=== PATIENT | female | born 1980 | race Caucasian/White ===

== ENCOUNTER 2018-02-21 08:35 | Emergency (ER) | payer OTHER, SELFPAY ==
[2018-02-21 08:36] VITALS: BP 114/62; PULSE 73; RESP 17; TEMP 36.7; O2SAT 100; BMI 23.7
--- NOTE | 2018-02-21 09:14 | ED.VISSUMM ---
- ER Visit Summary Date of Service: 02/21/18 Chief Complaint: Acute on chronic low back pain History of Present Illness: The patient is a 37 F history of intermittent back pain since 2011. States she has never had an MRI. She has never had back surgery. Today she was working out in her basement doing about a 10-15 pound lift and when she went to raise up she had immediate pain in her lower back. She also has a cool sensation running down the right side of her leg. She denies any bowel or bladder incontinence. No fever. states that they used ibuprofen 600 mg and ice and that is improved her symptoms. It was worse when they were driving down or with any movement. Physical Examination: Well-appearing middle-age female. Vital signs are stable afebrile. Pulse ox 100% on room air no signs of hypoxia. HEENT exam unremarkable. Neck nontender. No lymphadenopathy. Normal range of motion. Lungs clear to auscultation bilaterally. Heart regular rate and rhythm no murmur. Abdomen soft nontender Kevon no giving or masses. Normal bowel sounds no peritoneal signs. Both lower and upper extremities neurovascular intact. No cauda equina. No saddle anesthesia. Normal medial thigh sensation. Dorsi plantar flexion intact in the lower extremities. 5 the 5 motor strength. She is able to raise either leg about 15? she is increasing back pain but no radiculopathy. She has normal motor strength and sensation of both lower extremities. Back exam cervical and thoracic spine nontender her lower lumbar. Lumbar and iliac crests are all tender to palpation. There is no ecchymosis or bruising. No signs of trauma. No redness or warmth. No bony deformities. It is diffuse tenderness. Neurologic exam is normal again no motor strength loss or loss of sensation in either lower extremity. Test Results: None Emergency Department Course and Treatment: Patient's had good results in the past with tramadol. She will be written a prescription for 10. Also Motrin for pain. Treatment Plan: An appointment with her primary care physician. Outpatient MRI. Disposition: Discharge Impression: Acute on chronic low back pain. Acute lumbar strain Rule out degenerative disc disease with follow-up evaluation This note was generated with coresystems dictation software. It may contain incorrect words, spelling, and punctuation that were not noted in review of the chart prior to signing ED Disposition - Plan for ED Patient: Chief Complaint: Back Referrals: Bree Ramírez, ENTRY LEVEL ACCOUNT MANAGER-C [Primary Care Provider] -
--- NOTE | 2018-02-21 09:17 | ED.DEP ---
ED Disposition - Plan for ED Patient: Disposition: Home or Assisted Living Chief Complaint: Back Instructions: ED Sprain Strain Lumbar Prescriptions: Tramadol HCl [Ultram] 50 mg PO Q4H PRN PRN #10 tab PRN Reason: Pain Referrals: Bree Ramírez, JUDE-C [Primary Care Provider] - As soon as possible Additional Instructions: Hot shower and warm bath to relax the muscles in her back. There is both a lumbar strain (muscle strain) and chronic back pain issue here. Ice to decrease inflammation. Ibuprofen 600 mg 3 times a day with food to decrease pain and inflammation. Ultram for pain. Call follow-up your primary care physician. Schedule outpatient MRI. Follow-up with a resource specialist teacher.
--- NOTE | 2018-02-21 09:21 | DCINST.ED_ITS ---
ED Disposition - Plan for ED Patient: Disposition: Home or Assisted Living Chief Complaint: Back Instructions: ED Sprain Strain Lumbar Prescriptions: Tramadol HCl [Ultram] 50 mg PO Q4H PRN PRN #10 tab PRN Reason: Pain Referrals: Bree Ramírez, JUDE-C [Primary Care Provider] - As soon as possible Additional Instructions: Hot shower and warm bath to relax the muscles in her back. There is both a lumbar strain (muscle strain) and chronic back pain issue here. Ice to decrease inflammation. Ibuprofen 600 mg 3 times a day with food to decrease pain and inflammation. Ultram for pain. Call follow-up your primary care physician. Schedule outpatient MRI. Follow- up with a practice specialist.
[2018-02-21] MEDS: traMADol 50 MG Tablet 100 MG PO (09:29)
== END 2018-02-21 09:31 | disposition home or self-care (01) ==
PROVIDERS: Emergency Provider Emergency Medicine; Family Provider Nurse Practitioner Primary Care; PCP Nurse Practitioner Primary Care
DX: S39.012A Strain of muscle, fascia and tendon of lower back, initial encounter (principal); X50.0XXA Overexertion from strenuous movement or load, initial encounter; Y93.89 Activity, other specified; Y92.008 Other place in unspecified non-institutional (private) residence as the place of occurrence of the external cause; Y99.8 Other external cause status; G89.29 Other chronic pain
CPT/HCPCS: 99282

== ENCOUNTER → 2018-03-07 07:51 | Outpatient (CLI) | payer OTHER, SELFPAY ==
--- NOTE | 2018-03-07 07:56 | US_ITS ---
STUDY: RENAL ULTRASOUND - COMPLETE REASON FOR EXAM: Female, 37 years old. Elevated BUN/creatinine TECHNIQUE: Ultrasound evaluation of the kidneys was performed with real-time and static carver-scale imaging. COMPARISON: None. FINDINGS: RIGHT KIDNEY: Normal location of the right kidney, which is normal in size. The right kidney measures 10.7 x 5.3 x 4.7 cm. There is a normal cortex of the right kidney. The renal cortex measures 1.4 cm. There is a upper pole cyst measuring 1.3 x 1.4 x 0.8 cm. There are no right renal calculi. There is mild right hydronephrosis and caliectasis of on certain etiology. There is no demonstrated obstructing stone or lesion on this study. DISTAL RIGHT URETER: There is non-visualization of the distal right ureter. There is no demonstrated right ureterovesical junction calculus. There is a visualized right ureteral jet. LEFT KIDNEY: Normal location of the left kidney, which is normal in size. The left kidney measures 11.7 x 5.4 x 5.8 cm. There is a normal cortex of the left kidney. The renal cortex measures 1.3 cm. There is no left renal mass or cyst. There are no left renal calculi. There is no left hydronephrosis. DISTAL LEFT URETER: There is non-visualization of the distal left ureter. There is no demonstrated left ureterovesical junction calculus. There is a visualized left ureteral jet. AORTA: There is no elongation or tortuosity of the abdominal aorta. I.V.C.: The IVC is patent. BLADDER: The bladder sonographically normal US/Kidney and Bladder IMPRESSION: Mild right hydronephrosis with caliectasis. Cause of the hydronephrosis and caliectasis not apparent on this study. Sonographically normal left kidney and bladder Electronically Signed: Rashad Portillo MD at 8:42 EDT , Service support ,
== END ==
PROVIDERS: Family Provider Nurse Practitioner Primary Care; PCP Nurse Practitioner Primary Care; Visit Provider Family Medicine
DX: Q63.9 Congenital malformation of kidney, unspecified (principal)
CPT/HCPCS: 76770

== ENCOUNTER → 2018-03-23 15:25 | Outpatient (CLI) | payer OTHER, SELFPAY ==
[2018-03-23 17:38] LABS: Anion Gap 6 (5-15); BUN 11 mg/dL (7-18); BUN/Creat Ratio 14.6 RATIO (10-20); Calcium,Total 8.8 mg/dL (8.5-10.1); Chloride 106 mmol/L (98-107); Creatinine, Serum 0.76 mg/dL (0.55-1.02); EST Glomerular Filtration Rate 90 mL/min (>60); Est Glom Filt Rate - Afr Amer 109 mL/min (>60); Glucose 79 mg/dL (74-106); Potassium 3.9 mmol/L (3.5-5.1); Sodium Level 139 mmol/L (136-145)
== END ==
PROVIDERS: Family Provider Nurse Practitioner Primary Care; PCP Nurse Practitioner Primary Care; Visit Provider Family Medicine
DX: N13.30 Unspecified hydronephrosis (principal)
CPT/HCPCS: 36415; 80048

== ENCOUNTER → 2018-04-13 06:47 | Outpatient (CLI) | payer OTHER, SELFPAY ==
--- NOTE | 2018-04-13 06:47 | DT_ITS ---
This patient was seen during an EMR downtime April 11, 2018 - April 18, 2018. This patient may have a combination of paper and electronic documentation or all paper documentation. All documentation is viewable within the e-chart portion of [facility] for each patient visit.
--- NOTE | 2018-04-13 06:47 | CT_ITS ---
STUDY: CT ABDOMEN AND PELVIS WITH CONTRAST REASON FOR EXAM: Female, 37 years old. Pain right hydronephrosis. RADIATION DOSAGE (If Supplied By Facility): CTDIvol = ( 12.07 ) mGy, DLP = ( 1021.69 ) mGycm TECHNIQUE: Transaxial images were obtained from the dome of the diaphragm to the symphysis pubis without oral contrast. 100ml ml of Isovue 300 contrast was administered. Sagittal and coronal images were reconstructed. Individualized dose optimization techniques were used for this CT. COMPARISON: None. FINDINGS: The visualized lung bases are unremarkable. The visualized portions of the heart are within normal limits. Normal liver. Normal gallbladder and extrahepatic biliary system. Normal spleen. Normal pancreas. Normal bilateral adrenal glands. There is mild prominence of the right pelvicalyceal system. The right ureter is not dilated. Normal left kidney. The stomach is not well-distended. The small bowel loops are normal in caliber. The distal small bowel loops are fluid-filled. There is fecal retention. The appendix is visualized and appears normal. Normal abdominal aorta. Normal inferior vena cava. Normal retroperitoneum. The urinary bladder is not well-distended. The uterus is somewhat retroverted. There is a very small umbilical hernia containing fat. Normal osseous structures. CT/Abdomen/Pelvis WITH Contrast IMPRESSION: Mild prominence of the right pelvicalyceal system without ureteral dilatation. No demonstrated ureteral stone. Nonspecific fluid-filled small bowel loops without evidence of small bowel obstruction. Fecal retention. Electronically Signed: Magnus Kern MD at 13:34 EDT Tel , Service support ,
== END ==
PROVIDERS: Family Provider Family Medicine; PCP Family Medicine; Visit Provider Urology
DX: N13.30 Unspecified hydronephrosis (principal)
CPT/HCPCS: 74177; Q9967

== ENCOUNTER → 2019-01-26 07:59 | Outpatient (CLI) | payer OTHER, SELFPAY ==
--- NOTE | 2019-01-26 08:03 | BI_ITS ---
MAMMOGRAPHY - BILATERAL SCREENING 3-D BRAEDEN SYNTHESIS REASON FOR EXAM: Female, 38 years old. Bilateral Screening 3-D tomosynthesis PERTINENT HISTORY: Family history of breast cancer in maternal grandmother.. TECHNIQUE: 2-D mammograms and 3-D Braeden synthesis of the breast (s) were performed. CAD was performed. COMPARISON: None. Baseline examination. FINDINGS: The breast composition is almost entirely fat. Scattered benign calcifications are seen. No dense spiculated masses or suspicious microcalcifications are identified. No architectural distortion is identified. There is no skin thickening or retraction. There has been no significant change since the prior study. BI/SCREENING MAMM (CAD), BILAT IMPRESSION: No mammographic signs of malignancy. Routine yearly mammograms recommended. ASSESSMENT CATEGORY: BIRADS Category 1: Negative. A letter regarding these results will be sent to the patient by the facility within 30 days. FOLLOW UP RECOMMENDATION: Yearly follow up mammogram recommended. (A) Approximately 10% of breast cancers are not detected by mammography. A normal mammogram should not delay biopsy of a clinically suspicious abnormality. Electronically Signed: Braden Sheth MD at 16:38 EDT , Service support ,
== END ==
PROVIDERS: Family Provider Family Medicine; PCP Family Medicine; Visit Provider Nurse Practitioner Primary Care
DX: Z12.31 Encounter for screening mammogram for malignant neoplasm of breast (principal); Z80.3 Family history of malignant neoplasm of breast
CPT/HCPCS: 77063; 77067

== ENCOUNTER → 2019-01-31 08:46 | Outpatient (CLI) | payer OTHER, SELFPAY ==
[2019-01-31 08:41] VITALS: BMI 23.5
--- NOTE | 2019-01-31 08:49 | RAD_ITS ---
STUDY: X-RAY - LUMBAR SPINE REASON FOR EXAM: Female, 38 years old. Lower back pain. TECHNIQUE: 4 view(s) of the lumbar spine were obtained. COMPARISON: CT of the abdomen and pelvis dated April 13, 2018 FINDINGS: Normal lumbar lordosis. There is no substantial scoliosis. There is a normal alignment of the vertebrae. There is multilevel endplate spondylosis of the lumbar vertebrae. Normal disc space heights. The soft tissue structures are unremarkable. RAD/L/S Spine Min 4 Views IMPRESSION: Multilevel endplate spondylosis. Electronically Signed: Annabelle Aden MD at 11:01 EDT Tel , Service support ,
== END ==
PROVIDERS: Family Provider Family Medicine; PCP Family Medicine; Referring Provider Orthopaedic Surgery; Visit Provider Orthopaedic Surgery
DX: M54.5 Low back pain (principal)
CPT/HCPCS: 72110

== ENCOUNTER 2019-05-09 09:00 | Outpatient (RCR) | payer OTHER, SELFPAY ==
[2019-02-14 08:18] VITALS: BMI 23.5
--- NOTE | 2019-02-17 07:57 | HP.PTEVAL ---
Patient's Visit Information ARACELI WAYNE is a 38 year old F referred to Physical Therapy by Myra Vieira DO with a diagnosis of Anterior TIb. Date of Evaluation: 02/17/19 Physical Therapist: Landy Douglas DPT - Visit Plan Frequency: 2x /Week Duration: 4 Weeks Plan: Dry Needling and Core strength/stabilization with proprioception - Subjective Findings: Pateint reports in 2009 ran [employer] in the fall- spring 2010- severe pain on the right anterior dumont- chiro, GP, everyone diagnosed with dumont splints- saw EG who did orthotics which are still good- ultrasound, therapy- pain went away. Started running again but the pain came back- was ramping back up. Came back had the same therapy and it did not work. Lived with it for a few years- if she wore compression sleeve and meds and could get through it. Last Spring went to [facility]- did MRI's and said she has loose liagment in her foot. Sent to Dr. Kamara who told her it isnt to bad and did not do surgery- did an EMG which is normal. Did a deadlift and now has 3 bulging discs- focused on her back- Alisha exercises helps someonewhat- is not running at this point- due to her leg. Has not run seriously in about 7 years due to intense pain. If she sleeps on her right side its miserable in her leg. Sleeps now on the left side. October was power walking and popped in her foot- saw filter tip inspector thinks everything looks good- still think its sciatica. Went and saw Dr. Varma and nothing is wrong with her back normal degeneration- saw Dr. Dodge who diagnosed her with loose ankles- so her theory is not ruling out compartment syndrome- so she will have a running needle test and a dynamic ultrasound. Worst: 10 Agg: wore heels this week so a lot of pressure. Best: .03/17 Eases: no actvity. Pain is located on the lateral aspect of the right leg Describes it as achy and sore. Does have ankle pain along lateral malleolus and is now progressing to the medial side of the ankle. 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 PMHx:none Meds: homepathic suppliments. Vivimo - Objective Posture: FH, RS- can correct with VC's but does not maintain. Gait: no deviation noted. SLS: 5 sec then LOB- hip drop contralateral and increased muscle activation. HR/TR: able. HR/TR ambulation: Able. ROM: WFL in all planes of lumbar and LE. Strength: Ankle: DF/PF/Ever: 4+/5, Inv: 4-/5 with pain, Knee: 5/5, Hip: 4-/5 throughout Core: poor. Special Test: LLD: negative Pelvic Alignment: negative. Flex: HS: mod, Gastroc: mod - Goals Goal 1:: Patient will be I with HEP and progression Goal Time Frame: 4-6 Weeks Goal 2:: Patient will SLS for 30 sec without LOB Goal Time Frame: 4-6 Weeks Goal 3:: Patient will report 0/10 pain for 1 week Goal Time Frame: 4-6 Weeks Goal 4:: Patient will maintain proper posture t/o tx session to demo increased core s.s Goal Time Frame: 4-6 Weeks - Rehabilitation Potential Physical Therapy Diagnosis: Patient presents with hypomobility- she has decreased strength, flex and muscular endurance leading to poor posture and increased pain with ADL's. Rehabilitation Potential: Fair - Anticipated Interventions Patient/Client Instruction: Educate patient on: Benefits of Fitness Program Therapeutic Exercise to Include: Strength training, Endurance training, Agility training, Body mechanics, Postural training, Flexibilty training, Gait and locomotor training, Passive ROM, Active ROM, Dynamic Lumbar Stabilization For the Purpose of:: To decrease pain Thank you for the opportunity to evaluate your patient. For Medicare and Medicare HMO plans, please review the plan of care and approve it. It will need to be FAXED BACK to us at [phone] for Medicare purposes. For Medicare only, by signing this I certify the plan of care. Please let me know if there are questions or concerns regarding this plan of care. Physician Signature: Date:
--- NOTE | 2019-08-08 07:48 | HP.PT.NRP ---
HP - Discharge Summary (1) - Patient Information ARACELI WAYNE was seen in my office for initial evaluation on 02/17/19. The following Plan of Care was established for this patient: Initial Frequency: 2x /Week Initial Duration: 4 Weeks - Anticipated Interventions Patient/Client Instruction: Educate patient on: Benefits of Fitness Program Therapeutic Exercise to Include: Strength training, Endurance training, Agility training, Body mechanics, Postural training, Flexibilty training, Gait and locomotor training, Passive ROM, Active ROM, Dynamic Lumbar Stabilization For the Purpose of:: To decrease pain This patient was last seen in our office . Pertinent comments regarding their Physical therapy will appear below: Patient is appropriate for d/c at this time as she has not been to PT in over 8 weeks. Return to MD for further evaluation as needed. Encouraged to call PT if questions. At this point I will be discontinuing this patient from physical therapy. I would be happy to see this patient again in the future if found appropriate by the physician. Thank you! MANUELITO BanguraT
== END 2019-05-09 19:00 | disposition home or self-care (01) ==
LOC: PT 09:00
PROVIDERS: Family Provider Family Medicine; PCP Family Medicine; Referring Provider Orthopaedic Surgery; Visit Provider Orthopaedic Surgery
DX: M79.661 Pain in right lower leg (principal)
CPT/HCPCS: 97033; 97110; 97140; 97161; 97530

== ENCOUNTER 2019-06-10 16:46 | Emergency (ER) | payer OTHER, SELFPAY ==
[2019-05-04 09:00] VITALS: BMI 23.5
[2019-06-10 16:47] VITALS: BP 92/70; PULSE 71; RESP 16; TEMP 36.7; O2SAT 100; BMI 24.5
--- NOTE | 2019-06-10 19:46 | ED.DCSUM_ITS ---
- ER Visit Summary Date of Service: 06/10/19 Chief Complaint: Back pain History of Present Illness: The patient is a 39 F presenting with back pain. 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 She tried an anti-inflammatory at home with no impr ovement. She denies bowel or bladder incontinence. Denies numbness or weakness. She is able to ambulate. Denies fever. Denies other complaints. Physical Examination: Vitals are stable. Patient is afebrile. Alert no acute distress. HEENT exam is unremarkable. Neck is supple. Lungs are clear and equal bilaterally. Heart is regular rate and rhythm. Abdomen is soft nontender nondistended. Back: Bilateral lumbar paraspinal muscle tenderness, no midline tenderness. Extremities are unremarkable. Skin is warm and dry. No focal neurologic deficit. Normal strength and sensation Remainder of exam is unremarkable. Emergency Department Course and Treatment: Patient given Toradol, Norflex IM. On reevaluation, patient is feeling improved. She is given a prescription for Naprosyn and Flexeril. Advised to follow up with her primary care physician. Advised to return to the ED for worsening complaints. Disposition: Discharge home Impression: Lumbar strain This note was generated with [employer] dictation software. It may contain incorrect words, spelling, and punctuation that were not noted in review of the chart prior to signing ED Disposition - Plan for ED Patient: Instructions: Back Sprain/Strain Prescriptions: cycloBENZAPRine HCl [Flexeril] 10 mg PO TID PRN #20 tab PRN Reason: Muscle Spasm Prescription Printed Naproxen [Naprosyn] 500 mg PO BID PRN #20 tablet Prescription Printed Referrals: Petra Ballard NP-C [Primary Care Provider] -
[2019-06-10] MEDS: Orphenadrine 60 MG/2 ML Ampul IM (20:09)
[2019-06-10] MEDS: Ketorolac 60 MG/2 ML Vial IM (20:09)
--- NOTE | 2019-06-10 21:11 | ED.DEP ---
ED Disposition - Plan for ED Patient: Instructions: Back Sprain/Strain Prescriptions: cycloBENZAPRine HCl [Flexeril] 10 mg PO TID PRN #20 tablet PRN Reason: Muscle Spasm Naproxen [Naprosyn] 500 mg PO BID PRN #20 tablet Referrals: Petra Ballard NP-C [Primary Care Provider] -
[2019-06-10 21:20] VITALS: RESP 18
== END 2019-06-10 21:22 | disposition home or self-care (01) ==
PROVIDERS: Emergency Provider Emergency Medicine; Family Provider Family Medicine; PCP Family Medicine
DX: S39.012A Strain of muscle, fascia and tendon of lower back, initial encounter (principal); X58.XXXA Exposure to other specified factors, initial encounter; Y93.89 Activity, other specified; Y92.9 Unspecified place or not applicable
CPT/HCPCS: 96372; 99282

== ENCOUNTER 2019-12-12 08:00 | Outpatient (RCR) | payer OTHER, SELFPAY ==
[2019-09-07 14:48] VITALS: BMI 24.5
--- NOTE | 2019-09-11 13:48 | HP.PTEVAL_ITS ---
Patient's Visit Information ARACELI WAYNE is a 39 year old F referred to Physical Therapy by Myra Vieira DO with a diagnosis of Sup Nerve Entrap. Date of Evaluation: 09/11/19 Physical Therapist: Landy Douglas DPT - Visit Plan Frequency: 2x /Week Duration: 4 Weeks Plan: Ultrasound to right lateral LE - Subjective Findings: From Previous Evaluation:Pateint reports in 2009 ran [employer] in the fall- spring 2010- severe pain on the right anterior dumont- chiro, GP, everyone diagnosed with dumont splints- saw EG who did orthotics which are still good- ultrasound, therapy- pain went away. Started running again but the pain came back- was ramping back up. Came back had the same therapy and it did not work. Lived with it for a few years- if she wore compression sleeve and meds and could get through it. Last Spring went to [facility]- did MRI's and said she has loose liagment in her foot. Sent to Dr. Kamara who told her it isnt to bad and did not do surgery- did an EMG which is normal. Did a deadlift and now has 3 bulging discs- focused on her back- Alisha exercises helps someonewhat- is not running at this point- due to her leg. Has not run seriously in about 7 years due to intense pain. If she sleeps on her right side its miserable in her leg. Sleeps now on the left side. October was power walking and popped in her foot- saw plant operator helper thinks everything looks good- still think its sciatica. Went and saw Dr. Varma and nothing is wrong with her back normal degeneration- saw Dr. Dodge who diagnosed her with loose ankles- so her theory is not ruling out compartment syndrome- so she will have a running needle test and a dynamic ultrasound. Worst: 10 Agg: wore heels this week so a lot of pressure. Best: .03/17 Eases: no actvity. Pain is located on the lateral aspect of the right leg Describes it as achy and sore. Does have ankle pain along lateral malleolus and is now progressing to the medial side of the ankle. 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 PMHx:none Meds: homepathic suppliments. Vivimo. Current subjective: She had an injection from pain mgmt and it made it worse. She felt like the only thing that has helped was the US that they used for the diagnostic so Dr. Dodge wants her to come back for US - Objective Posture: FH, RS- can correct with VC's but does not maintain. Gait: no d eviation noted. SLS: 30 sec without LOB HR/TR: able. HR/TR ambulation: Able. ROM: WFL in all planes of lumbar and LE. Strength: Ankle: DF/PF/Ever: 5/5, Knee: 5/5, Hip: 4/5 throughout Core: poor. Special Test: LLD: negative Pelvic Alignment: negative. Flex: HS: mod, Gastroc: mod - Goals Goal 1:: Patient will report 0/10 pain for 1 week with all normal ADLs Goal Time Frame: 4-6 Weeks - Rehabilitation Potential Physical Therapy Diagnosis: Patient presents with hypomobility- she has decrea sed strength, flex and muscular endurance leading to poor posture and increased pain with ADL's. Rehabilitation Potential: Fair - Anticipated Interventions Patient/Client Instruction: Educate patient on: Benefits of Fitness Program Therapeutic Exercise to Include: Strength training, Endurance training, Balance training, Body mechanics, Postural training, Flexibilty training, Gait and locomotor training Ultrasound (thermal/non thermal): Yes For the Purpose of:: To decrease pain Thank you for the opportunity to evaluate your patient. For Medicare and Medicare HMO plans, please review the plan of care and approve it. It will need to be FAXED BACK to us at [phone] for Medicare purposes. For Medicare only, by signing this I certify the plan of care. Please let me know if there are questions or concerns regarding this plan of care. Physician Signature: Date:
--- NOTE | 2020-03-19 11:06 | HP.PT.NRP ---
ARACELI WAYNE was seen in my office for initial evaluation on 09/11/19. The following Plan of Care was established for this patient: Initial Frequency: 2x /Week Initial Duration: 4 Weeks Patient/Client Instruction: Educate patient on: Benefits of Fitness Program Therapeutic Exercise to Include: Strength training, Endurance training, Balance training, Body mechanics, Postural training, Flexibilty training, Gait and locomotor training Ultrasound (thermal/non thermal): Yes For the Purpose of:: To decrease pain This patient was last seen in our office . Pertinent comments regarding their Physical therapy will appear below: Patient has not attended physical therapy in over 8 weeks- appropriate for d/c and return to MD as appropriate. At this point I will be discontinuing this patient from physical therapy. I would be happy to see this patient again in the future if found appropriate by the physician. Thank you! MANUELITO BanguraT
== END 2019-12-12 19:00 | disposition home or self-care (01) ==
LOC: PT 08:00
PROVIDERS: Family Provider Family Medicine; PCP Family Medicine; Referring Provider Orthopaedic Surgery; Visit Provider Orthopaedic Surgery
DX: G57.31 Lesion of lateral popliteal nerve, right lower limb (principal)
CPT/HCPCS: 97035; 97161

== ENCOUNTER → 2020-09-19 06:07 | Outpatient (CLI) | payer OTHER, SELFPAY ==
[2019-12-14 08:18] VITALS: BMI 24.5
[2020-09-19 07:30] LABS: Hematocrit 43.8 % (37-47); Hemoglobin 14.1 g/dL (12.0-15.0); Mean Corp Hgb Conc 32.2 g/dL (32-36); Mean Corpuscular Hgb 29.2 pg (27.0-32.0); Mean Corpuscular Volume 90.7 fL (81-99); Mean Platelet Vol. 10.5 fl (6.2-12.0); Platelet Count 195 K/mm3 (150-450); RBC Distribution Width CV 12.4 % (11.6-14.6); Red Blood Count 4.83 M/mm3 (4.2-5.4); White Blood Count 5.7 K/mm3 (4.4-11.0)
[2020-09-19 08:12] LABS: ALB/GLOB Ratio 1.1 RATIO (0.9-2.4); AST(SGOT) 15 U/L (15-37); Alanine Aminotransfer ALT/SGPT 31 U/L (13-56); Albumin, Serum 3.8 g/dL (3.2-5.0); Alkaline Phosphatase 60 U/L (45-117); Anion Gap 3 (5-15); BUN 16 mg/dL (7-18); BUN/Creat Ratio 20.6 RATIO (10-20); Calcium,Total 9.1 mg/dL (8.5-10.1); Chloride 108 mmol/L (98-107); Cholesterol 253 mg/dL (200); Creatinine, Serum 0.78 mg/dL (0.55-1.02); EST Glomerular Filtration Rate 87 mL/min (>60); Est Glom Filt Rate - Afr Amer 105 mL/min (>60); Globulin 3.5 g/dL (2.2-4.2); Glucose 90 mg/dL (74-106); High Density Lipoprotein 64 mg/dL; Magnesium 2.4 mg/dL (1.6-2.6); Potassium 4.5 mmol/L (3.5-5.1); Protein, Total 7.3 g/dL (6.4-8.2); Sodium Level 141 mmol/L (136-145); Thyroid Stim Hormone (TSH) 4.49 uIU/mL (0.358-3.74); Triglycerides 100 mg/dL; Very Low Density Lipoprotein 20 mg/dL (5-40)
[2020-09-19 10:35] LABS: Vitamin B12 598 pg/mL (211-911); Vitamin D,25 Hydroxy 24.5 ng/mL
== END ==
PROVIDERS: PCP Family Medicine; Referring Provider Family Medicine; Visit Provider Family Medicine
DX: R53.83 Other fatigue (principal); R63.5 Abnormal weight gain; F41.9 Anxiety disorder, unspecified; K14.6 Glossodynia; Z13.6 Encounter for screening for cardiovascular disorders
CPT/HCPCS: 36415; 80053; 80061; 82306; 82607; 83735; 84443; 85027

== ENCOUNTER → 2020-11-21 06:08 | Outpatient (CLI) | payer OTHER, SELFPAY ==
[2019-12-14 08:18] VITALS: BMI 24.5
[2020-11-21 07:53] LABS: Thyroid Stim Hormone (TSH) 2.97 uIU/mL (0.358-3.74)
== END ==
LOC: LAB 06:13
PROVIDERS: PCP Family Medicine; Referring Provider Family Medicine; Visit Provider Family Medicine
DX: E03.9 Hypothyroidism, unspecified (principal)
CPT/HCPCS: 36415; 84443

== ENCOUNTER → 2021-02-19 06:25 | Outpatient (CLI) | payer OTHER, SELFPAY ==
[2019-12-14 08:18] VITALS: BMI 24.5
[2021-02-19 07:43] LABS: Thyroid Stim Hormone (TSH) 2.28 uIU/mL (0.358-3.74)
== END ==
PROVIDERS: PCP Family Medicine; Referring Provider Family Medicine; Visit Provider Family Medicine
DX: E03.9 Hypothyroidism, unspecified (principal)
CPT/HCPCS: 36415; 84443

== ENCOUNTER → 2021-04-29 09:56 | Outpatient (CLI) | payer OTHER, SELFPAY ==
[2019-12-14 08:18] VITALS: BMI 24.5
[2021-04-29 08:35] LABS: T3 Total - Triiodothyronine 1.06 ng/mL (0.6-1.81)
[2021-04-29 08:46] LABS: T4 Free Direct 1.01 ng/dL (0.76-1.46)
--- NOTE | 2021-04-29 09:59 | US_ITS ---
STUDY: THYROID ULTRASOUND REASON FOR EXAM: Female, 40 years old. HYPOTHYROIDISM TECHNIQUE: Ultrasound evaluation of the thyroid was performed with real-time and static kemp-scale imaging. COMPARISON: None. FINDINGS: RIGHT LOBE: The right lobe of the thyroid gland measures 4.9 x 1.5 x 1.4 cm. There is a homogeneous echotexture. There is a single nodule within the lower aspect of the right lobe is measures 1.3 x 0.8 x 0.7. LEFT LOBE: The left lobe of the thyroid gland measures 4.8 x 1.6 x 1.2 cm cm. There is a homogeneous echotexture. There are nodes seen first one measures 0.4 x 0.4 x 0.3 cm the second one measures 2.4 x 0.4 x 0.2 cm. There are 2 tiny cysts seen within the mid aspect of the left lobe one of them measures 0.7 x 0.5 x 0.3 cm. ISTHMUS: The isthmus measures 2.1 mm . The regional lymph nodes are normal. US/Thyroid IMPRESSION: Multiple tiny nodules seen involving both lobes of the thyroid as described above Electronically Signed: Yanci Casillas, at 8:23 EDT Tel , Service support ,
[2021-04-30 13:27] LABS: Thyroid Peroxidase AB < 9 IU/mL (0-34)
== END ==
PROVIDERS: PCP Family Medicine; Referring Provider Nurse Practitioner Primary Care; Visit Provider Nurse Practitioner Primary Care
DX: E03.9 Hypothyroidism, unspecified (principal); R53.83 Other fatigue; R63.5 Abnormal weight gain; E04.9 Nontoxic goiter, unspecified
CPT/HCPCS: 36415; 76536; 82533; 84439; 84480; 86376

== ENCOUNTER → 2021-09-27 07:04 | Outpatient (CLI) | payer OTHER, SELFPAY ==
[2021-09-27 08:08] LABS: Thyroid Stim Hormone (TSH) 2.66 uIU/mL (0.358-3.74)
== END ==
PROVIDERS: PCP Family Medicine; Referring Provider Internal Medicine Endocrinology, Diabetes & Metabolism; Visit Provider Internal Medicine Endocrinology, Diabetes & Metabolism
DX: E03.8 Other specified hypothyroidism (principal)
CPT/HCPCS: 36415; 84443

== ENCOUNTER 2022-01-09 06:14 | Outpatient (CLI) | payer BC, SELFPAY ==
[2022-01-09 07:51] LABS: Thyroid Stim Hormone (TSH) 2.16 uIU/mL (0.358-3.74)
== END 2022-01-09 23:59 | disposition home or self-care (01) ==
LOC: LAB 06:16
PROVIDERS: PCP Family Medicine; Referring Provider Internal Medicine Endocrinology, Diabetes & Metabolism; Visit Provider Internal Medicine Endocrinology, Diabetes & Metabolism
DX: E04.2 Nontoxic multinodular goiter (principal)
CPT/HCPCS: 36415; 84443

== ENCOUNTER → 2022-05-05 | Outpatient (CLI) | payer BC, SELFPAY ==
[2022-05-05 10:21] LABS: Vitamin B12 1319 pg/mL (211-911); Vitamin D,25 Hydroxy 38.6 ng/mL
[2022-05-05 10:30] LABS: Free T3 2.4 pg/mL (2.18-3.98); T4 Free Direct 1.11 ng/dL (0.76-1.46); Thyroid Stim Hormone (TSH) 1.09 uIU/mL (0.358-3.74)
[2022-05-05 10:33] LABS: Homocysteine 5.8 umol/L (3.2-10.7)
== END | disposition home or self-care (01) ==
LOC: LAB 09:34
PROVIDERS: PCP Family Medicine; Referring Provider Family Medicine; Visit Provider Family Medicine
DX: R53.83 Other fatigue (principal); E55.9 Vitamin D deficiency, unspecified; E03.9 Hypothyroidism, unspecified
CPT/HCPCS: 36415; 82306; 82607; 82746; 83090; 84439; 84443; 84481

== ENCOUNTER 2022-05-16 17:03 | Emergency (ER) | payer BC, SELFPAY ==
[2022-05-16 17:04] VITALS: BP 94/80; PULSE 95; RESP 14; TEMP 36.6; O2SAT 98; BMI 28.1
--- NOTE | 2022-05-16 17:22 | ED.VIS.BACK ---
HPI History of Present Illness Chief Complaint: Back Informant: patient and spouse/S.O. Onset/Context/Timing Onset: Today and Hours Context: Sudden Onset Injury: lifting, twisting, bending, direct trauma, fall, assault and repetitive motion Timing: Continuous Quality: Sharp Current Severity: Moderate Maximum Severity: Moderate Worsened by: improves with Movement, Bending and Lifting Relieved by: Remaining Still Associated Symptoms Associated Symptoms: Radiation to Right Leg; Negative for Numbness, Tingling, Radiation to Left Leg, Fever, Abdominal Pain, Dysuria, Unable to Ambulate, Unable to Transfer, Urinary Retention, Urinary Incontinence, Constipation or Fecal Incontinence Narrative Narrative: 41-year-old female has had a history of L4, L5 and S1 degenerative disc disease. She has been seen here previously for similar pain. Said she Morning she felt great. Her and her were carrying 5 gallon buckets of mulch laying down and she was bending over and weeding. Said she got pain in her right lower back right buttock and down the lateral aspect of her right thigh almost to her knee. Pain is a lot worse with movement. No trauma. No fever. She is on no blood thinners. She has never had back surgery. She denies any bowel or bladder incontinence. No weakness. Prior similar symptoms: Yes Recent Illness/Hospitalization: [facility] Medical History Anxiety Depression Home Medications naproxen 500 mg-esomeprazole 20 mg tablet,immediate and delay release (Vimovo) 1 tab PO BID 01/31/19 [History Last Taken Unknown] bupropion HCl 150 mg 24 hr tablet, extended release 1 tab PO DAILY 05/16/22 [History Last Taken Unknown] bupropion HCl 300 mg 24 hr tablet, extended release 1 tab PO DAILY 05/16/22 [History Last Taken Unknown] cholecalciferol (vitamin D3) 1,250 mcg (50,000 unit) capsule 1 cap PO QWEEK 05/16/22 [History Last Taken 05/10/22] hydrocodone-acetaminophen 5-325mg 5mg-325mg 1 tab PO Q4H PRN pain 5 days #20 tabs 05/16/22 [Rx Last Taken Unknown] levothyroxine 50 mcg tablet 1 tab PO DAILY 05/16/22 [History Last Taken Unknown] Allergy/AdvReac Type Severity Reaction Status Date / Time Cephalosporins Allergy Hives Verified 05/16/22 17:05 Social History Smoking Status: Never smoker ROS ROS ED ROS Narrative Denies recent illness. Back pain today. Review of Systems ROS Unobtainable: Denies due to encephalopathy Constitutional Constitutional ED: Denies chills Eyes Eyes: Denies blurry vision ENT ENT ED: Denies ear pain Cardiovascular Cardiovascular: Denies chest pain Respiratory/Chest Respiratory/Chest: Denies dyspnea Genitourinary Genitourinary ED: Denies dysuria Musculoskeletal Musculoskeletal: Reports back pain; Denies arthralgias Integumentary Denies abscess Neurologic Neurologic: Denies headache(s) Psychiatric Psychiatric: Denies anxiety Endocrine Endocrinology: Denies cold intolerance Hematologic/Lymphatic Hematologic/Lymphatic: Denies easy bleeding Allergic/Immunologic Allergic/Immunologic ED: Denies mouth swelling EXAM Physical Exam Narrative Exam Narrative: 41-year-old female complaining of back pain. Vital signs stable afebrile. Initial blood pressure 94/80. H EENT exam unremarkable. Moist with membranes. Neck nontender. Lungs are clear. Heart regular rhythm no murmur. Abdomen soft nontender normal bowel sounds no peritoneal signs. No pulsatile mass. Moving all 4 extremities. 5/5 workers compensation defense attorney strength. Dorsi plantarflexion intact. Both lower extremities have normal thigh sensation. No cauda equina or saddle anesthesia. Normal motor strength. Currently negative straight leg raise. Back exam spine nontender. Tenderness over right SI joint. No ecchymosis or bruising. No redness or warmth. Neurologically she is awake alert with no focal motor or sensory deficits. No cauda equina. Const Vital Signs: 05/16/22 17:04 Temperature 97.9 F Temperature Source Temporal Pulse Rate 95 Respiratory Rate 14 Blood Pressure 94/80 Blood Pressure Mean 84 Pulse Ox 98 Oxygen Delivery Method Room Air Positive well nourished and well developed; Negative for cachectic, contractures or unkempt General Appearance ED: well developed; Negative for unkempt, cachectic or contractures Nutritional Appearance: Negative for cachectic HEENT Denies dry mucous membranes Negative for trauma or tenderness Mouth ED: No dry mucous membranes Mouth: No dry mucous membranes Eyes PERRL and EOMs intact bilaterally General Eye ED: Negative for pale conjunctiva or scleral icterus Neck no lymphadenopathy, supple and no JVD General: Negative for tenderness Thyroid: Negative for other Resp normal respiratory effort and clear to auscultation bilaterally Effort and Inspection: Negative for pain with movement Auscultation: Negative for rales Percussion: Negative for other Cardio regular rate, regular rhythm, S1 normal heart sound, S2 normal heart sound and no murmurs GI normal to inspection, nondistended, normoactive bowel sounds, soft to palpation, non-tender, non-distended and no masses Inspection: Negative for abdominal distention Auscultation: Negative for hyperactive bowel sounds Palpation: Negative for tender or guarding Back/Spine no thoracic nor lumbar tenderness; Negative for normal to inspection Cervical Spine: Negative for cervical spine tenderness and paracervical muscle tenderness Thoracic Spine / Upper Back: paraspinal muscle tenderness Lumbar Spine / Lower Back: ROM limited; Negative for straight leg raise negative bilaterally or straight leg raise positive right Extremity normal to inspection and no clubbing, cyanosis or edema General Extremety ED: Negative for edema General Extremity: Negative for edema Neuro oriented x3 and no sensory deficits noted Sensorium / Orientation: alert; Negative for confused, lethargic or stuporous Motor Exam: strength 5/5 throughout; Negative for strength abnormal Psych mental status grossly normal Appearance: Negative for unkempt Attitude: No agitated Mood & Affect: Negative for depressed Skin no rashes or lesions noted and no wounds General Skin Exam: Negative for jaundice Lesions: No lesion noted Rashes: No rashes noted Trauma: Negative for abrasion Wounds: Negative for wounds noted MDM MDM MDM Narrative Medical decision making narrative: 41-year-old female with a history of L4, 5 and S1 degenerative disc disease. 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 No weakness or incontinence. She be treated with IM morphine and p.o. Zofran. She is already taken multiple Aleve since noon. I do not think she needs any imaging at this time. She has no cauda equina. She has had prior MRI 2 to 4 years ago. That showed a degenerative disc disease. She has had prior plain films. Exam patient is doing well at 6:50 PM. Feeling much better after the morphine shot. On exam of her back her spine is nontender she has reproducible right SI tenderness. But negative straight leg raise. Patient be discharged home continue her Aleve. Ice to the SI joint on the right. [place] for pain. Follow-up with your doctor if not improving. Return if worse. Discharge Plan Triage Chief Complaint: Back ED Provider: Guillermo Paul Dx/Rx/DC Orders Clinical Impression: Back pain, History of degenerative disc disease, Sciatica Instructions: ED Back Pain (Acute or Chronic), ED Sciatica Prescriptions: New hydrocodone-acetaminophen 5-325 mg tablet 1 tab PO Q4H PRN (Reason: pain) 5 Days Qty: 20 0RF No Action Vimovo 500-20 mg tablet,IR,delayed rel,biphasic 1 tab PO BID levothyroxine 50 mcg tablet 1 tab PO DAILY bupropion HCl 300 mg tablet extended release 24 hr 1 tab PO DAILY Label Comments: take 1 tablet by mouth ONCE DAILY bupropion HCl 150 mg tablet extended release 24 hr 1 tab PO DAILY Label Comments: take 1 tablet by mouth every 24 hours cholecalciferol (vitamin D3) 1,250 mcg (50,000 unit) capsule 1 cap PO QWEEK Label Comments: take 1 capsule by mouth every week Primary Care Provider: Brianna Brown Referrals: Brianna Brown DO [Primary Care Provider] - 3-5 Days if not improving Activity Restrictions/Additional Instructions: Alleve for pain and inflammation. [place]mer for pain. Call follow-up with your doctor if not improving return emergency department if feeling worse or not improving.. Disposition Disposition: Home, Self Care
[2022-05-16] MEDS: Ondansetron ODT 4 MG Tablet 8 MG PO (17:27)
[2022-05-16] MEDS: morphine 10 MG/ML Syringe IM (17:28)
[2022-05-16 18:52] VITALS: RESP 16
== END 2022-05-16 19:10 | disposition home or self-care (01) ==
LOC: ED 17:37
PROVIDERS: Emergency Provider Emergency Medicine; PCP Family Medicine; Visit Provider Emergency Medicine
DX: M54.50 Low back pain, unspecified (principal); M54.30 Sciatica, unspecified side; M51.36 Other intervertebral disc degeneration, lumbar region; Z79.899 Other long term (current) drug therapy
CPT/HCPCS: 96372; 99282

== ENCOUNTER → 2022-09-29 | Outpatient (CLI) | payer BC, SELFPAY ==
[2022-09-29 07:08] LABS: Thyroid Stim Hormone (TSH) 2.83 uIU/mL (0.358-3.74)
== END | disposition home or self-care (01) ==
LOC: LAB 06:09
PROVIDERS: PCP Family Medicine; Referring Provider Internal Medicine Endocrinology, Diabetes & Metabolism; Visit Provider Internal Medicine Endocrinology, Diabetes & Metabolism
DX: E03.8 Other specified hypothyroidism (principal)
CPT/HCPCS: 36415; 84443

== ENCOUNTER → 2022-11-17 | Outpatient (CLI) | payer BC, SELFPAY ==
[2022-11-17 08:16] LABS: AST(SGOT) 15 U/L (15-37); Alanine Aminotransfer ALT/SGPT 27 U/L (13-56); Albumin, Serum 3.4 g/dL (3.2-5.0); Alkaline Phosphatase 72 U/L (45-117); Anion Gap 6 (5-15); BUN 15 mg/dL (7-18); BUN/Creat Ratio 21.5 RATIO (10-20); Calcium,Total 8.8 mg/dL (8.5-10.1); Chloride 104 mmol/L (98-107); Cholesterol 228 mg/dL (200); EST Glomerular Filtration Rate 97 mL/min (>60); Est Glom Filt Rate - Afr Amer 117 mL/min (>60); Globulin 3.3 g/dL (2.2-4.2); Glucose 88 mg/dL (74-106); High Density Lipoprotein 57 mg/dL; Potassium 4.1 mmol/L (3.5-5.1); Protein, Total 6.7 g/dL (6.4-8.2); Sodium Level 139 mmol/L (136-145); Triglycerides 108 mg/dL; Very Low Density Lipoprotein 22 mg/dL (5-40)
[2022-11-17 09:22] LABS: Hepatitis C Antibody Non-Reactive (Nonreactive); Vitamin D,25 Hydroxy 42.9 ng/mL
== END | disposition home or self-care (01) ==
LOC: LAB 06:11
PROVIDERS: PCP Family Medicine; Visit Provider Family Medicine
DX: Z00.00 Encounter for general adult medical examination without abnormal findings (principal); Z13.1 Encounter for screening for diabetes mellitus; Z13.6 Encounter for screening for cardiovascular disorders; E55.9 Vitamin D deficiency, unspecified; Z11.59 Encounter for screening for other viral diseases
CPT/HCPCS: 36415; 80053; 80061; 82306; 86803

== ENCOUNTER → 2023-04-08 | Outpatient (CLI) | payer BC, SELFPAY ==
[2023-04-08 07:10] LABS: Anion Gap 4 (5-15); BUN 16 mg/dL (7-18); Calcium,Total 8.7 mg/dL (8.5-10.1); Chloride 108 mmol/L (98-107); Creatinine, Serum 0.84 mg/dL (0.55-1.02); EST Glomerular Filtration Rate 78 mL/min (>60); Est Glom Filt Rate - Afr Amer 94 mL/min (>60); Glucose 97 mg/dL (74-106); Potassium 4.3 mmol/L (3.5-5.1); Sodium Level 141 mmol/L (136-145); Thyroid Stim Hormone (TSH) 1.98 uIU/mL (0.358-3.74)
== END | disposition home or self-care (01) ==
LOC: LAB 06:04
PROVIDERS: PCP Family Medicine; Referring Provider Internal Medicine Endocrinology, Diabetes & Metabolism; Visit Provider Internal Medicine Endocrinology, Diabetes & Metabolism
DX: E03.8 Other specified hypothyroidism (principal); E04.2 Nontoxic multinodular goiter
CPT/HCPCS: 36415; 80048; 84443

== ENCOUNTER → 2023-08-12 | Outpatient (CLI) | payer BC, SELFPAY ==
[2023-08-12 07:39] LABS: ALB/GLOB Ratio 1.1 RATIO (0.9-2.4); AST(SGOT) 15 U/L (15-37); Alanine Aminotransfer ALT/SGPT 32 U/L (13-56); Albumin, Serum 3.5 g/dL (3.2-5.0); Alkaline Phosphatase 62 U/L (45-117); Anion Gap 3 (5-15); BUN 16 mg/dL (7-18); BUN/Creat Ratio 19.9 RATIO (10-20); Calcium,Total 8.7 mg/dL (8.5-10.1); Chloride 111 mmol/L (98-107); Cholesterol 214 mg/dL (200); EST Glomerular Filtration Rate 82 mL/min (>60); Est Glom Filt Rate - Afr Amer 99 mL/min (>60); Globulin 3.3 g/dL (2.2-4.2); Glucose 102 mg/dL (74-106); High Density Lipoprotein 62 mg/dL; Potassium 4.4 mmol/L (3.5-5.1); Protein, Total 6.8 g/dL (6.4-8.2); Sodium Level 140 mmol/L (136-145); Triglycerides 103 mg/dL; Very Low Density Lipoprotein 21 mg/dL (5-40)
== END | disposition home or self-care (01) ==
LOC: LAB 06:17
PROVIDERS: PCP Family Medicine; Referring Provider Family Medicine; Visit Provider Family Medicine
DX: E78.5 Hyperlipidemia, unspecified (principal)
CPT/HCPCS: 36415; 80053; 80061

== ENCOUNTER → 2023-10-06 | Outpatient (CLI) | payer BC, SELFPAY ==
[2023-10-06 10:28] LABS: Thyroid Stim Hormone (TSH) 2.05 uIU/mL (0.358-3.74)
== END | disposition home or self-care (01) ==
LOC: LAB 06:08
PROVIDERS: PCP Family Medicine; Referring Provider Internal Medicine Endocrinology, Diabetes & Metabolism; Visit Provider Internal Medicine Endocrinology, Diabetes & Metabolism
DX: E03.8 Other specified hypothyroidism (principal)
CPT/HCPCS: 36415; 84443

== ENCOUNTER 2023-11-12 07:25 | Day surgery (SDC) | payer BC, SELFPAY ==
[2023-11-12] VITALS (7 sets, daily range): BP systolic 85–92; BP diastolic 52–63; PULSE 58–63; RESP 12–18; TEMP 36.5–37.4; O2SAT 97–100; BMI 27.6
--- OUTSIDE RECORDS SUMMARY | 2023-11-12 07:34 | XMS RPT_ITS | CCD ---
Author Name Unknown Address 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 Name Role Phone No, Physician Primary Care Provider ARNOLD Hackett DO Primary Care Physician ARNOLD CLEVELAND DO Primary Care Unavailable ARNOLD CLEVELAND DO Attending Unavailable ARNOLD CLEVELAND DO Primary Care Unavailable ARNOLD CLEVELAND DO Attending Unavailable ARNOLD CLEVELAND DO Primary Care Unavailable ARNOLD CLEVELAND DO Attending Unavailable ARNOLD CLEVELAND DO Attending Unavailable ARNOLD CLEVELAND DO Primary Care Unavailable Allergies Allergy Classification Reported Allergen(s) Allergy Type Date of Onset Reaction(s) Facility (3 sources) Cephalexin; Translations: [cephalexin] Drug Allergy [facility] Work Phone: (3 sources) Cephalosporins (Antibiotic); Translations: [cephalosporins] Drug allergy [facility] Work Phone: (3 sources) seasonal enviromental Allergy to substance Drainage procedure (procedure), Cough (finding) [facility] Work Phone: Medications Current Medications Medication Drug Class(es) Dates Sig (Normalized) Sig (Original) 24 hr buPROPion hydrochloride 150 mg extended release oral tablet (3 sources) Aminoketone Start: 10-27-2022 take 1 tablet by mouth every hour, then take 1 tablet by mouth every twenty-four hours buPROPion 150 mg/24 hours (XL) oral tablet, extended release Dose : 150 mg = 1 tab(s), Oral, q24h, # 90 tab(s), 3 Refill(s), [id number], Anxiety and depression, 172, cm, 10/27/22 10:37:00 EST, Height, kg, 10/27/22 10:37:00 EST, Dosing Weight Start Date: 10/27/22 Status: Ordered Completed/Discontinued Medications Medication Drug Class(es) Dates Sig (Normalized) Sig (Original) nitrofurantoin macrocrystals-monohyd rate 100 mg oral capsule (1 source) Start: 10-29-2021 End: 11-03-2021 nitrofurantoin macrocrystals-monohy drate 100 mg oral capsule Dose : 100 mg = 1 cap(s), Oral, BID, 0 Refill(s), 79.7 Start Date: 10/29/21 Stop Date: 11/03/21 Status: Ordered Vitamin D3 1250 mcg (50,000 intl units) oral capsule (2 sources) Start: 05-05-2022 End: 04-30-2023 Vitamin D3 1250 mcg (50,000 intl units) oral capsule Dose : 50,000 International_Unit = 1 cap(s), Oral, qWeek, # 13 cap(s), 3 Refill(s), Pharmacy: [facility], Vitamin D deficiency, 171.3, cm, 05/05/22 8:30:00 EDT, Height, kg, 05/05/22 8:30:00 EDT, Dosing Weight Start Date: 05/05/22 Stop Date: 04/30/23 Status: Ordered Vitamin D3 50,000 intl units (1250 mcg) oral capsule (1 source) Start: 09-20-2020 End: 09-15-2021 Vitamin D3 50,000 intl units (1250 mcg) oral capsule Dose : 50,000 International_Unit = 1 cap(s), Oral, qWeek, # 13 cap(s), 3 Refill(s), Pharmacy: [facility], Vitamin D deficiency, 171, cm, 09/18/20 8:00:00 EST, Height, kg, 09/18/20 8:00:00 EST, Dosing Weight Start Date: 09/20/20 Stop Date: 09/15/21 Status: Ordered Problems Problem Classification Problem Date Documented Da te Episodic/Chronic Anxiety disorders (3 sources) 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 Diseases of mouth; excluding dental (3 sources) 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 Disorders of lipid metabolism (1 source) Hyperlipidemia 08-31-2023 Chronic Malaise and fatigue (3 sources) Fatigue 11-07-2019 Episodic Nutritional deficiencies (2 sources) Vitamin D deficiency 05-05-2022 Chronic Other diseases of kidney and ureters (3 sources) Hydronephrosis 11-03-2019 Episodic Results Test Name Value Interpretation Reference Range Facil ity Encounters Encounter Date Encounter Type Care Provider Facility Start: 11-04-2023 ambulatory ARNOLD CLEVLEAND DO Facil ity:B Start: 09-29-2023 ambulatory ARNOLD CLEVELAND DO Facil ity:B Start: 09-24-2023 End: 09-25-2023 ambulatory ARNOLD CLEVELAND DO Facility:B Start: 09-24-2023 End: 09-24-2023 Patient encounter procedure ARNOLD M MEGHA CONWAY [facility] Start: 11-09-2022 End: 11-10-2022 ambulatory ARNOLD CLEVELAND DO Facility:B Start: 11-09-2022 End: 11-09-2022 Patient encounter procedure ARNOLD Whitehead MEGHA [facility] Start: 10-29-2021 End: 11-02-2021 Outreach Lab KARIN SNYDER ROLLS MILL OPERATOR-MEDICAL REVIEW COORDINATOR [facility] Start: 05-20-2021 End: 05-20-2021 Transcribe Orders Lawanda Kapadia MA [facility] Endocrino logy Physicians Procedures Date Procedure Procedure Detail Performing Clinician Start: 12-22-2018 Date of last papanic olaou test (observable entity) KARIN SNYDER ROLLS MILL OPERATOR-MEDICAL REVIEW COORDINATOR Start: 01-05-2017 Hysteroscopy KARIN SNYDER ROLLS MILL OPERATOR-MEDICAL REVIEW COORDINATOR Colonoscopy KARIN SNYDER ROLLS MILL OPERATOR -MEDICAL REVIEW COORDINATOR Destructive procedure KARIN HENDERSON ROLLS MILL OPERATOR-MEDICAL REVIEW COORDINATOR Plan of Treatment Date Care Activity Detail Author Start: 10-17-2021 End: 10-17-2021 Patient encounter procedure 10/17/2021 Office Visit Endocrinology Trever Day, KIT[address] [place] [address] [phone] [facility] [place] Start: 07-09-2021 Influenza vaccination Sequential Influenza Vaccine (#1) [facility] Start: 2018 Screening mammography Mammogram [facility] Start: 1996 Hepatitis C screening Hepatitis C Screening [facility] Start: 1993 HIV screening HIV Screening [facility] Start: 1990 COVID-19 Vaccine (1) COVID-19 Vaccine (1) [facility] Start: 1990 Depression screening using PHQ-9 (Patient Health Questionnaire 9) score Depression Screening (PHQ9) [facility] Start: 1981 History and physical examination, annual for health maintenance Wellness Visit [facility] Start: 1978 Screening for malignant neoplasm of cervix Pap Smear [facility] Start: 1978 Tetanus vaccination Tetanus: Every 10yrs [facility] Immunizations Immunization Date Immunization Notes Care Provider Demarco ruiz 07-26-2022 influenza virus vaccine, unspecified formulation ARNOLD CLEVELAND DO [facility] 10-11-2021 SARS-CoV-2 mRNA (tozinameran) vaccine ARNOLD CLEVELAND DO [facility] 02-27-2021 SARS-CoV-2 (COVID-19 ) mRNA-1273 vaccine ARNOLD CLEVELAND DO [facility] Payers Date Payer Category Payer Unknown [id number] 2011 Private Health Insurance CIG[employer] C IGNA HMO/NTWK/OACCESS/OA+/PO S [id number] 2011-Present [id number] 1978 Unknown [id number] 1978 Unknown [id number] 1978 Unknown [id number] 1978 Unknown [id number] Social History Date Type Detail Facility Tobacco smoking stat [facility] Unknown if ever smoked [facility] Start: 1978 Sex Assigned At Not on file O [facility] Start: 11-07-2019 Never smoked t obeb (finding) [facility] Sex Assigned At Female [facility] Evaluation + Plan note 04-28-2021 Laboratory Note Date & Type Note Facility 04-28-2021 Evaluation + Plan note Future Scheduled TestsThyroid Antibodies 04/28/21Thyroid Stimulating Hormone 06/23/21Lipid Profile 06/23/21Vitamin D Level 06/23/21Complete Metabolic Panel 06/23/21 [facility] Evaluation + Plan note Laboratory Note Date & Type Note Facility Evaluation + Plan note Future Appointments Appointment Date:10/26/2023 09:00:00 AM Scheduled Provider:ARNOLD CLEVELAND DO Location:[facility] Appointment Type: Wellness Annual Future Scheduled TestsLipid Profile 10/27/22Hepatitis C Antibody IgG 10/27/22Vitamin D Level 10/27/22Complete Metabolic Panel 10/27/22 [facility] Evaluation + Plan note Note Date & Type Note Facility Evaluation + Plan note Future Appointments Appointment Date:10/26/2023 09:00:00 AM Scheduled Provider:ARNOLD CLEVELAND DO Location:[facility] Appointment Type:PC Wellness Annual [facility] Evaluation note Note Date & Type Note Facility documented in this encounter [facility] course Narrative Note Date & Type Note Facility Hospital course Narrative No data available for this section [facility] Hospital Discharge instructions Note Date & Type Note Facility Hospital Discharge instructions No data available for this section [facility] Progress note Note Date & Type Note Facility Progress note No data available for this section [facility] Summary Purpose Family History No Family History Records Found No data available for this section No Family History Records Found Advance Directives No Advanced Directives Records FoundDocuments on File Type Date Recorded 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 Advance Directives and Livin g Will 05/20/2021 12:00 AM Reason for Referral Status Reason Specialty Diagnoses / Procedures Referred By Contact Referred To Contact Authorized Specialty Services Required/Patien t's Best Interest Endocrinology Diagnoses Thyroid nodule System, Provider Not In Olivia Pierre MD [address] [place] [id number] Additional Source Comments INFORMATION SOURCE (unrecogn ized section and content) DATE CREATED AUTHOR AUTHOR'S ORGANIZ ATION 11/05/2023 [facility] Care Team (unrecognized sect ion and content) Care Team Personnel Name: MONA MITCHELL MD Position: P3 Physician - Endocrinology Member 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 Address: Address: [facility] [address] [place] [id number]- Name: ARNOLD CLEVELAND DO Position: P4 Physician - Primary Care Member Role: Primary Care Physician Address: Address: [address] [facility] [place] [address]- Care Team Related Persons Name: FLIP WAYNE Address: Home [address] [place], [place] [phone] Name: STACY WAYNE Address: Home [address] [place] [phone] Address: Temporary [address] [place] [phone] Patient Care team informatio n (unrecognized section and content) Care Team Personnel Name: MONA MITCHELL MD Position: P3 Physician - Endocrinology Member 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 Address: Address: [facility] [address] [place] [address] [address] [place], [place] [address] Name: ARNOLD CLEVELAND DO Position: P4 Physician - Primary Care Member Role: Primary Care Physician Address: Address: [address] [place] [id number] [place] Care Team Related Persons Name: FLIP WAYNE Address: Home [address] [place], [place] [phone] Name: SAVI WAYNE Address: Home [address] [place], [place] [id number] Address: Temporary [address] [place], [place] [phone] Name: STACY WAYNE Address: Home [address] [place], [place] [phone] Address: Temporary [address] [place], [place] [phone] FOR RECORDS PERTAINING TO PATIENTS WHO ARE OR HAVE BEEN ENROLLED IN A CHEMICAL DEPENDENCY/SUBSTANCEABUSE PROGRAM, SOME INFORMATION MAY BE OMITTED. This clinical summary was aggregated from multiple sources. Caution should be exercised in using it in the provision of clinical care. This summary normalizes information from multiple sources, and as a consequence, information in this document may materially change the coding, format and clinical context of patient data. In addition, data may be omitted in some cases. CLINICAL DECISIONS SHOULD BE BASED ON THE PRIMARY CLINICAL RECORDS. [facility]. provides no warranty or guarantee of the accuracy or completeness of information in this document.
[2023-11-12] MEDS: Lactated Ringers 1,000 ML 15 ML IV (08:01)
--- NOTE | 2023-11-12 08:20 | HP.PCM_ITS ---
HPI - General HPI Narrative ARACELI WAYNE, is a 43 F who presents for screening colonoscopy. Patient said her last colonoscopy was 20 years ago. She denies any abdominal pain or blood in the stool. She is not on blood thinners. She has no family history of colon cancer. [facility] Medical History (Updated 11/10/23 @ 14:10 by Jacque Mobley) Anxiety Depression High cholesterol Hx of colonic polyps Hyperlipidemia Hypothyroid Non-smoker Post-menopausal Thyroid disease Home Medications hydrocodone-acetaminophen 5-325mg 5mg-325mg 1 tab PO Q4H PRN pain 5 days #20 tabs 05/16/22 [Rx Last Taken Unknown] levothyroxine 50 mcg tablet 1 tab PO DAILY 05/16/22 [History Last Taken Unknown] bupropion HCl 200 mg tablet,12 hr sustained-release 200 mg PO BID 11/03/23 [History Last Taken Unknown] cyanocobalamin (vitamin B-12) 50 mcg tablet (Vitamin B-12) 50 mcg PO DAILY 11/03/23 [History Last Taken Unknown] glucosamine 375 fl-pjlsougeo-psm no1 500 mg-C 15 mg-mitchell 0.5 mg tablet 1 tab PO DAILY 11/03/23 [History Last Taken Unknown] magnesium oxide 250 mg PO DAILY 11/03/23 [History Last Taken Unknown] naproxen 500 mg-esomeprazole 20 mg tablet,immediate and delay release (Vimovo) 1 tab PO BID PRN pain 11/03/23 [History Last Taken Unknown] nitrofurantoin macrocrystal 50 mg capsule 50 mg PO DAILY PRN After [place] 11/03/23 [History Last Taken Unknown] cholecalciferol (vitamin D3) 25 mcg (1,000 unit) capsule (Vitamin D3) 25 mcg PO DAILY 11/10/23 [History Last Taken Unknown] Allergy/AdvReac Type Severity Reaction Status Date / Time cephalexin Allergy Hives Verified 11/10/23 14:03 Cephalosporins Allergy Hives Verified 11/10/23 14:03 Seasonal Allergies: Uncoded Allergy Cough, Verified 11/10/23 14:03 Drainage Family History (Updated 11/03/23 @ 11:17 by Yessica Monroy) Grandmother Breast cancer Surgical History (Updated 11/10/23 @ 14:10 by Jacque Mobley) History of endometrial ablation History of esophagogastroduodenoscopy (EGD) History of hysteroscopy History of wisdom tooth extraction Hx of colonoscopy Hx of tonsillectomy Social History Smoking Status: Never smoker Past Medical/Surgical History Planned Operation Planned Operative Procedure/s: CSCOPE Previous Hospitalizations/Surgeries HX Hospitalizations: No Any Problems With Anesthesia: No You/Your Family Experience Fever (Hyperthermia) With Anes: No Cholinesterase deficiency: No Cardiovascular Hx Hypertension: No Respiratory Hx Sleep Apnea: No Hx Respiratory Tract Infection/Cold (presently): No Do You Snore Loudly (louder than talking or can be heard): No Do You Often Feel Tired/ Fatigued/ Sleepy Dring Daytime?: No Has Anyone Observed You Stop Breathing During Sleep?: No Result (for STOP score): Negative Smoking Status: Never smoker Neurological Hx Back Injury/Pain: Yes (bulging discs) Does patient have nerve stimulator: No Reproduction : No Miscellaneous Recent Exposure to Contagious Disease: No Allergies cephalexin Allergy (Verified 11/10/23 14:03) Hives Cephalosporins Allergy (Verified 11/10/23 14:03) Hives Seasonal Allergies: Uncoded Allergy (Verified 11/10/23 14:03) Cough, Drainage Discharge Is Pt Admitted From a [facility], or a Longterm: No After D/C, Where Do you Plan to Go: Return Home Vital Signs Vital Signs Vital Signs: 11/12/23 07:51 11/12/23 07:51 Temperature 99.4 F H Temperature Source Temporal Pulse Rate 60 Respiratory Rate 16 Respiratory Pattern Normal Blood Pressure 92/63 Blood Pressure Mean 72 Blood Pressure Source Monitor Blood Pressure Position Semi-Fowlers Blood Pressure Location Left Arm Pulse Ox 100 Oxygen Delivery Method Room Air Weight Weight: 176 lb 5.917 oz Body Mass Index (BMI) 27.6 Physical Exam Const alert and oriented x3 HEENT normocephalic Eyes PERRL Resp normal respiratory effort and normal air movement Cardio regular rate and regular rhythm GI soft to palpation, non-tender and non-distended Extremity normal to inspection Assessment & Plan Assessment/Plan (1) Encounter for screening for malignant neoplasm of colon: PLAN: I explained endoscopy in detail to the patient. I explained the risks including but not limited to stroke or heart attack with anesthesia, perforation of the GI tract, bleeding, infection. I explained that any of these could necessitate further emergency surgery. The patient understands and all questions were answered sufficiently. The patient wishes to proceed with pro cedure. Raghavendra Barry MD Pager: [facility] [address] [place] [address], [address] [place] [address] Office: Surgery Risks - Colonoscopy Risks Include but are not Limited To: Risks include but are not limited to: Bleeding, perforation requiring further surgery, inability to complete colonoscopy requiring barium enema.
--- NOTE | 2023-11-12 09:20 | OP.CCLET_ITS ---
11/12/2023 Brianna Syed, Re : Colonoscopy procedure for Sharon Padilla Dear Yahaira This procedure was performed on Sunday, November 12, 2023. My impressions and recommendations are as follows: Impressions : - The entire examined colon is normal. - No specimens collected. Recommendations : - Discharge patient to home. - Resume previous diet. - Continue present medications. - Repeat colonoscopy in 10 years for screening purposes. My findings are described in the full procedure note, which is enclosed. If I can be of further assistance, please feel free to contact me at Doctor phone number(s): , Work: . Sincerely, Raghavendra Barry MD 11/12/2023 9:19:30 AM This report has been signed electronically.
--- NOTE | 2023-11-12 09:20 | OP.COLON_ITS ---
Patient Name: Sharon Padilla Procedure Date: 11/12/2023 8:25 AM Date of : 1980 Age: 43 Procedure: Colonoscopy Indications: Screening for colorectal malignant neoplasm Providers: Raghavendra Barry MD Referring MD: Raghavendra Barry MD Medicines: Monitored Anesthesia Care Patient Profile: This is a 43 year old female. Refer to note in patient chart for documentation of history and physical. Last Colonoscopy: more than 10 years ago. Complications: No immediate complications. Procedure: Pre-Anesthesia Assessment: - Prior to the procedure, a History and Physical was performed, and patient medications and allergies were reviewed. The patient's tolerance of previous anesthesia was also reviewed. The risks and benefits of the procedure and the sedation options and risks were discussed with the patient. All questions were answered, and informed consent was obtained. Prior Anticoagulants: The patient has taken no anticoagulant or antiplatelet agents. After reviewing the risks and benefits, the patient was deemed in satisfactory condition to undergo the procedure. After I obtained informed consent, the scope was passed under direct vision. Throughout the procedure, the patient's blood pressure, pulse, and oxygen saturations were monitored continuously. The Colonoscope was introduced through the anus and advanced to the cecum, identified by appendiceal orifice and ileocecal valve. The colonoscopy was performed without difficulty. The patient tolerated the procedure well. The quality of the bowel preparation was good. The terminal ileum, ileocecal valve, appendiceal orifice, and rectum and the ileocecal valve, appendiceal orifice, and rectum were photographed. Scope In: 8:31:28 AM Scope Withdrawal Time 0 hours 6 minutes 6 seconds Scope Out: 8:43:35 AM Total Procedure Duration Time 0 hours 12 minutes 7 seconds Findings: The entire examined colon appeared normal. Impression: - The entire examined colon is normal. - No specimens collected. Recommendation: - Discharge patient to home. - Resume previous diet. - Continue present medications. - Repeat colonoscopy in 10 years for screening purposes. Procedure Code(s): --- Professional --- 66071, Colonoscopy, flexible; diagnostic, including collection of specimen(s) by brushing or washing, when performed (separate procedure) Diagnosis Code(s): --- Professional --- Z12.11, Encounter for screening for malignant neoplasm of colon CPT copyright 2021 [employer]. All rights reserved. The codes documented in this report are preliminary and upon shop repairer review may be revised to meet current compliance requirements. Raghavendra Barry MD 11/12/2023 9:19:30 AM This report has been signed electronically. Number of Addenda: 0 Note Initiated On: 11/12/2023 8:25 AM
== END 2023-11-12 09:29 | disposition home or self-care (01) ==
LOC: EN 07:25 → AC 08:25
PROVIDERS: PCP Family Medicine; Referring Provider Family Medicine; Visit Provider Surgery
PROC: 0DJD8ZZ Inspection of Lower Intestinal Tract, Via Natural or Artificial Opening Endoscopic (ICD-10-PCS; CPT 45378; principal; 2023-11-12 08:25)
DX: Z12.11 Encounter for screening for malignant neoplasm of colon (principal); E03.9 Hypothyroidism, unspecified; F41.9 Anxiety disorder, unspecified; F32.A Depression, unspecified; Z86.010 Personal history of colon polyps; Z79.899 Other long term (current) drug therapy
CPT/HCPCS: 45378; J7120; J2405

== ENCOUNTER → 2023-12-09 | Outpatient (CLI) | payer BC, SELFPAY ==
[2023-12-09 17:11] LABS: Hemoglobin 12.9 g/dL (12.0-15.0); Mean Corp Hgb Conc 32.3 g/dL (32-36); Mean Corpuscular Hgb 29.3 pg (27.0-32.0); Mean Corpuscular Volume 90.9 fL (81-99); Mean Platelet Vol. 10.7 fl (6.2-12.0); Platelet Count 234 K/mm3 (150-450); RBC Distribution Width CV 12.2 % (11.6-14.6); RBC Distribution Width SD 40.6 fl (35.1-43.9); White Blood Count 7.9 K/mm3 (4.4-11.0)
[2023-12-09 17:16] LABS: Erythrocyte Sedimentation Rate 4 mm/hr (0-30)
[2023-12-09 18:09] LABS: Vitamin B12 1441 pg/mL (211-911); Vitamin D,25 Hydroxy 54.9 ng/mL
[2023-12-09 18:25] LABS: ALB/GLOB Ratio 1.2 RATIO (0.9-2.4); AST(SGOT) 16 U/L (15-37); Alanine Aminotransfer ALT/SGPT 27 U/L (13-56); Alkaline Phosphatase 66 U/L (45-117); Anion Gap 1 (5-15); BUN 14 mg/dL (7-18); BUN/Creat Ratio 18.3 RATIO (10-20); CPK Total, Creatine Kinase 123 U/L (26-192); CRP < 2.90 mg/L (0.0-3.0); Calcium,Total 9.1 mg/dL (8.5-10.1); Chloride 103 mmol/L (98-107); Creatinine, Serum 0.76 mg/dL (0.55-1.02); EST Glomerular Filtration Rate 87 mL/min (>60); Est Glom Filt Rate - Afr Amer 105 mL/min (>60); Globulin 3.4 g/dL (2.2-4.2); Glucose 84 mg/dL (74-106); Magnesium 2.4 mg/dL (1.6-2.6); Protein, Total 7.4 g/dL (6.4-8.2); Rheumatoid Factor < 10.0 IU/mL (<15); Sodium Level 134 mmol/L (136-145); Thyroid Stim Hormone (TSH) 1.47 uIU/mL (0.358-3.74); Uric Acid 3.2 mg/dL (2.6-6.0)
--- OUTSIDE RECORDS SUMMARY | 2023-12-09 19:31 | XMS RPT_ITS | CCD ---
Author Name Unknown Address [address] [place] [address] [address] [facility] [address] [place] [address] Organization [facility] Care Team Providers Care Sales Representative Publications Name Role Phone No, Physician Primary Care Provider UnavailARNOLD Herrera DO Primary Care Physician ARNOLD CLEVELAND DO Primary Care Physician [phone] ARNOLD CLEVELAND DO Attending Unavailable ARNOLD CLEVELAND DO Primary Care Unavailable ARNOLD CLEVELAND DO Attending Unavailable ARNOLD CLEVELAND DO Primary Care Unavailable ARNOLD CLEVELAND DO Attending Unavailable ARNOLD CLEVELAND DO Primary Care Unavailable Allergies Allergy Classification Reported Allergen(s) Allergy Type Date of Onset Reaction(s) Facility (4 sources) Cephalexin; Translations: [cephalexin] Drug Allergy [facility] Work Phone: (4 sources) Cephalosporins (Antibiotic); Translations: [cephalosporins] Drug allergy [facility] Work Phone: (4 sources) seasonal enviromental Allergy to substance Drainage procedure (procedure), Cough (finding) [facility] Work Phone: Medications Current Medications Medication Drug Class(es) Dates Sig (Normalized) Sig (Original) 12 hr buPROPion hydrochloride 200 mg extended release oral tablet (4 sources) Aminoketone Start: 10-26-2023 take 1 tablet by mouth every hour, then take 1 tablet by mouth twice daily buPROPion 200 mg/12 hours (SR) oral tablet, extended release Dose : 200 mg = 1 tab(s), Oral, BID, Change in dosing, # 180 tab(s), 0 Refill(s), [id number], Anxiety and depression, 171, cm, 10/26/23 9:05:00 EST, Height, kg, 10/26/23 9:05:00 EST, Dosing Weight Start Date: 10/26/23 Status: Ordered Completed/Discontinued Medications Medication Drug Class(es) [...] qWeek, # 13 cap(s), 3 Refill(s), 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 Disorders of lipid metabolism (2 sources) Hyperlipidemia 08-31-2023 Chronic Malaise and fatigue (4 sources) Fatigue 11-07-2019 Episodic Nutritional deficiencies (3 sources) Vitamin D deficiency 05-05-2022 Chronic Other diseases of kidney and ureters (4 sources) Hydronephrosis 11-03-2019 Episodic Results Test Name Value Interpretation Reference Range Facil ity Encounters Encounter Date Encounter Type Care Provider Facility Start: 11-15-2023 End: 11-16-2023 ambulatory ARNOLDHITESH CLEVELAND DO Facility:B Start: 11-15-2023 End: 11-15-2023 Patient encounter procedure ARNOLD CLEVELAND DO [facility] Start: 09-29-2023 ambulatory ARNOLD CLEVELAND DO Facil ity:B Start: 09-24-2023 End: 09-25-2023 ambulatory ARNOLD CLEVELAND DO Facility:B Start: 09-24-2023 End: 09-24-2023 Patient encounter procedure ARNOLD CLEVELAND DO [facility] Start: 11-09-2022 End: 11-09-2022 Patient encounter procedure ARNOLD Whitehead MEGHA DO [facility] Start: 10-29-2021 End: 11-02-2021 Outreach Lab KARIN SNYDER [employer]CHANT [employer] EQUIPMENT MECHANIC [facility] Start: 05-20-2021 End: 05-20-2021 Transcribe Orders Lawanda Kapadia MA [facility] Procedures Date Procedure Procedure Detail Performing Clinician Start: 12-22-2018 Date of last papanic olaou test (observable entity) KARIN SNYDER [employer]CHANT [employer] FIELD EQUIPMENT MECHANIC Start: 02-28-2017 Hysteroscopy KARIN SNYDER [employer]CHANT [employer] FIELD EQUIPMENT MECHANIC Colonoscopy KARIN SNYDER MERCHANT TA[employer]IL FIELD EQUIPMENT MECHANIC Destructive procedure KARIN HENDERSON MERCHANT [employer] FIELD EQUIPMENT MECHANIC Plan of Treatment Date Care Activity Detail Author Start: 10-17-2021 End: 10-17-2021 Patient encounter procedure 10/17/2021 Office Visit Endocrinology Trever Day, KITTY [address] [id number] [facility] [place] Start: 07-09-2021 Influenza vaccination Sequential Influenza Vaccine (#1) [facility] Start: 2018 Screening mammography Mammogram [facility] Start: 1996 Hepatitis C screening Hepatitis C Screening [facility] Start: 1993 HIV screening HIV Screening [facility] Start: 1990 COVID-19 Vaccine (1) COVID-19 Vaccine (1) [facility] Start: 1990 Depression screening using PHQ-9 (Patient Health Questionnaire 9) score Depression Screening (PHQ9) [facility] Start: 1981 History and physical examination, annual for health maintenance Wellness Visit [facility] Start: 1978 Screening for malignant neoplasm of cervix Pap Smear [facility] Start: 1978 Tetanus vaccination Tetanus: Every 10yrs [facility] Immunizations Immunization Date Immunization Notes Care Provider Fa joseph 07-26-2022 influenza virus vaccine, unspecified formulation ARNOLD CLEVELAND DO [facility] 10-11-2021 SARS-CoV-2 mRNA (tozinameran) vaccine ARNOLD CLEVELAND DO [facility] 02-27-2021 SARS-CoV-2 (COVID-19 ) mRNA-1273 vaccine ARNOLD CLEVELAND DO [facility] Payers Date Payer Category Payer Unknown [id number] 2011 Private Health Insurance [employer] Donna PURDYA HMO/NTWK/OACCESS/OA+/PO S [id number] 2011-Present [id number] 1980 Unknown [id number] 1980 Unknown [id number] 1980 Unknown [id number] Social History Date Type Detail Facility Tobacco smoking stat [facility] Unknown if ever smoked [facility] Start: 1980 Sex Assigned At Not on file [facility] [place] Start: 11-07-2019 Never smoked t cecilio (finding) [facility] Sex Assigned At Female [facility] Evaluation + Plan note 04-28-2021 Laboratory Note Date & Type Note Facility 04-28-2021 Evaluation + Plan note Future Scheduled TestsThyroid Antibodies 04/28/21Thyroid Stimulating Hormone 06/23/21Lipid Profile 06/23/21Vitamin D Level 06/23/21Complete Metabolic Panel 06/23/21 [facility] Evaluation + Plan note Laboratory Note Date & Type Note Facility Evaluation + Plan note Future Appointments Appointment Date:10/26/2023 09:00:00 AM Scheduled Provider:ARNOLD CLEVELAND DO Location:[facility] Appointment Type:PC Wellness Annual Future Scheduled TestsLipid Profile 10/27/22Hepatitis C Antibody IgG 10/27/22Vitamin D Level 10/27/22Complete Metabolic Panel 10/27/22 [facility] Evaluation + Plan note Note Date & Type Note Facility Evaluation + Plan note Future Appointments Appointment Date:10/26/2023 09:00:00 AM Scheduled Provider:ARNOLD CLEVELAND DO Location:[facility] Appointment Type:PC Wellness Annual [facility] Evaluation note Note Date & Type Note Facility documented in this encounter [facility] Hospital course Narrative Note Date & Type Note Facility Hospital course Narrative No data available for this section [facility] Hospital Discharge instructions Note Date & Type Note Facility Hospital Discharge instructions No data available for this section [facility] Progress note Note Date & Type Note Facility Progress note No data available for this section [facility] Summary Purpose Family History No Family History Records Found No data available for this section No data available for this section No Family History Records Found Advance Directives No Advanced Directives Records FoundDocuments on File Type Date Recorded Patient Skin Lifter Bacon Expl anation Advance Directives and Livin g Will 05/20/2021 12:00 AM Reason for Referral Status Reason Specialty Diagnoses / Procedures Referred By Contact Referred To Contact Authorized Specialty Services Required/Patien t's Best Interest Endocrinology Diagnoses Thyroid nodule System, Provider Not In Pierre, Olivia Goodson MD [address] [place] [id number] Additional Source Comments INFORMATION SOURCE (unrecogn ized section and content) DATE CREATED AUTHOR AUTHOR'S ORGANIZ ATION 11/21/2023 [facility] ([place]) Care Team (unrecognized sect ion and content) Care Team Personnel Name: MONA MITCHELL MD Position: P3 Physician - Endocrinology Member Role: Research Manufacturing Operator Address: Address: [facility] [address] [place] [address]- Name: ARNOLD CLEVELAND DO Position: P4 Physician - Primary Care Member Role: Primary Care Physician Address: Address: [address] [facility] [place] [address]- Care Team Related Persons Name: FLIP WAYNE Address: Home [address] [place], [place] [id number] Name: STACY WAYNE Address: Home [address] [place] [id number] Address: Temporary [address] [place] [id number] Patient Care team informatio n (unrecognized section and content) Care Team Personnel Name: MONA MITCHELL MD Position: P3 Physician - Endocrinology Member Role: Research Manufacturing Operator Address: Address: [facility] [address] [place] [id number] Name: ARNOLD CLEVELAND DO Position: P4 Physician - Primary Care Member Role: Primary Care Physician Address: Address: [address] [place] [address] Care Team Related Persons Name: FLIP WAYNE Address: Home [address] [place] [id number] Name: SAVI WAYNE Address: Home [address] [place], [place] [id number] Address: Temporary [address] [place], [place] [id number] Name: STACY WAYNE Address: Home [address] [place], [place] [id number] Address: Temporary [address] [place] [id number] Care Team Personnel Name: MONA MITCHELL MD Position: P3 Physician - Endocrinology Member Role: Research Manufacturing Operator Address: Address: [facility] [address] [place] [id number] Name: ARNOLD CLEVELAND DO Position: P4 Physician - Primary Care Member Role: Primary Care Physician Address: Address: [address] [place] [address] Care Team Related Persons Name: FLIP WAYNE Address: Home [address] [place], [place] [id number] Name: SAVI WAYNE Address: Home [address] [place], [place] [id number] Address: Temporary [address] [place] [id number] Name: STACY WAYNE Address: Home [address] [place] [id number] Address: Temporary [address] [place] [id number] FOR RECORDS PERTAINING TO PATIENTS WHO ARE [...] BE BASED ON THE PRIMARY CLINICAL RECORDS. [facility] [employer] [facility]. provides no warranty or guarantee of the accuracy or completeness of information in this document.
[2023-12-13 12:08] LABS: ANTINUCLEAR ANTIBODIES DIRECT Negative (Negative)
== END | disposition home or self-care (01) ==
LOC: LAB 16:16
PROVIDERS: PCP Family Medicine; Visit Provider Family Medicine
DX: M25.50 Pain in unspecified joint (principal); M35.3 Polymyalgia rheumatica; E78.5 Hyperlipidemia, unspecified; E03.9 Hypothyroidism, unspecified; F41.9 Anxiety disorder, unspecified; E55.9 Vitamin D deficiency, unspecified
CPT/HCPCS: 36415; 80053; 82306; 82550; 82607; 83735; 84443; 84550; 85027; 85652; 86038; 86140; 86431

== ENCOUNTER → 2024-04-06 | Outpatient (CLI) | payer BC, SELFPAY ==
[2024-04-06 12:50] LABS: Anion Gap 4 (5-15); BUN 17 mg/dL (7-18); BUN/Creat Ratio 23.3 RATIO (10-20); Calcium,Total 9.4 mg/dL (8.5-10.1); Chloride 103 mmol/L (98-107); Creatinine, Serum 0.73 mg/dL (0.55-1.02); EST Glomerular Filtration Rate 91 mL/min (>60); Est Glom Filt Rate - Afr Amer 111 mL/min (>60); Glucose 86 mg/dL (74-106); Potassium 4.6 mmol/L (3.5-5.1); Sodium Level 136 mmol/L (136-145); Thyroid Stim Hormone (TSH) 1.39 uIU/mL (0.358-3.74)
== END | disposition home or self-care (01) ==
LOC: LAB 11:21
PROVIDERS: PCP Family Medicine; Referring Provider Internal Medicine Endocrinology, Diabetes & Metabolism; Visit Provider Internal Medicine Endocrinology, Diabetes & Metabolism
DX: E03.8 Other specified hypothyroidism (principal)
CPT/HCPCS: 36415; 80048; 84443

== ENCOUNTER → 2024-06-08 | Outpatient (CLI) | payer BC, SELFPAY ==
[2024-06-08 08:56] LABS: Estradiol 35.4 pg/mL; Follicle Stimulating Hormone 72.9 mIU/mL
[2024-06-08 09:52] LABS: Hemoglobin A1c 5.2 % (3.8-5.6)
[2024-06-12 12:08] LABS: PROLACTIN 20.6 ng/mL (4.8-33.4); Sex Hormone-binding Globulin 77.3 nmol/L (24.6-122.0); Testosterone, % Free 2.28 % (0.50-2.80); Testosterone, Free 3.19 ng/dL (0.10-0.85); Testosterone, Total 140 ng/dL (4-50)
== END | disposition home or self-care (01) ==
LOC: LAB 06:37
PROVIDERS: PCP Family Medicine
DX: R68.82 Decreased libido (principal); R63.5 Abnormal weight gain; N91.1 Secondary amenorrhea
CPT/HCPCS: 36415; 82670; 83001; 83002; 83036; 84146; 84270; 84402; 84403

== ENCOUNTER 2024-06-27 09:04 | Emergency (ER) | payer BC, SELFPAY ==
[2024-06-27 09:04] VITALS: BP 125/115; PULSE 69; RESP 16; TEMP 36.3; O2SAT 98
--- NOTE | 2024-06-27 09:19 | EDS_ITS ---
HPI History of Present Illness Chief Complaint: Back [facility] Medical History Thyroid disease High cholesterol Non-smoker Post-menopausal Hx of colonic polyps Hyperlipidemia Hypothyroid Anxiety Depression Home Medications ?Medication ?Instructions ?Recorded ?Last Taken ?Type hydrocodone-acetaminophen 5-325mg 1 tab PO Q4H PRN pain 5 days #20 05/16/22 Unknown Rx 5mg-325mg tabs levothyroxine 50 mcg tablet 1 tab PO DAILY 05/16/22 Unknown History bupropion HCl 200 mg tablet,12 hr 200 mg PO BID 11/03/23 Unknown History sustained-release cyanocobalamin (vitamin B-12) 50 50 mcg PO DAILY 11/03/23 Unknown History mcg tablet (Vitamin B-12) glucosamine 375 [id number] 1 tab PO DAILY 11/03/23 Unknown History no1 500 mg-C 15 mg-mitchell 0.5 mg tablet magnesium oxide 250 mg PO DAILY 11/03/23 Unknown History naproxen 500 mg-esomeprazole 20 mg 1 tab PO BID PRN pain 11/03/23 Unknown History tablet,immediate and delay release (Vimovo) nitrofurantoin macrocrystal 50 mg 50 mg PO DAILY PRN After 11/03/23 Unknown History capsule [place] cholecalciferol (vitamin D3) 25 25 mcg PO DAILY 11/10/23 Unknown History mcg (1,000 unit) capsule (Vitamin D3) Allergy/AdvReac Type Severity Reaction Status Date / Time cephalexin Allergy Hives Verified 11/10/23 14:03 Cephalosporins Allergy Hives Verified 11/10/23 14:03 Seasonal Allergies: Uncoded Allergy Cough, Verified 11/10/23 14:03 Drainage Family History Grandmother Breast cancer Surgical History History of wisdom tooth extraction Hx of tonsillectomy History of esophagogastroduodenoscopy (EGD) History of endometrial ablation History of hysteroscopy Hx of colonoscopy Social History Smoking Status: Never smoker EXAM Physical Exam Const Vital Signs: 06/27/24 09:04 Temperature 97.4 F L Temperature Source Temporal Pulse Rate 69 Respiratory Rate 16 Blood Pressure 125/115 H Blood Pressure Mean 118 Pulse Ox 98 Oxygen Delivery Method Room Air [facility] [place] Narr[place] Medical decision making narrative: HISTORY OF PRESENT ILLNESS: 44-year-old female presents with chronic back pain. No she is having difficulty walking secondary to pain. No she took 3 Aleve this morning. She further states REVIEW OF SYSTEMS: Pertinent positives: Back pain Pertinent negatives: Bowel or bladder incontinence, urinary tension, loss of m ovement or sensation in her legs, saddle anesthesia, urinary frequency urgency dysuria PHYSICAL EXAM: Nursing triage notes reviewed, Vital signs reviewed Constitutional: please see mdm Abdomen: Soft, there is no tenderness, rigidity, rebound or guarding, no obvious peritoneal signs, no palpable pulsatile abdominal masses, no auscultated abdominal bruit : No CVAT Back: No midline step-offs deformities to the T or L-spine Extremities: No edema Neuro: Intact sensation L1-S1 dermatomal distributions. Intact 5/5 strength in hip flexion (T12-L3). Knee extension (L2-L4). Ankle dorsiflexion (L4-L5). Ankle plantar flexion (S1). Great toe extension (L5). 2+ patellar and Achilles DTRs. Skin: No rash or lesions noted MEDICAL DECISION MAKING: Chief Complaint: Back pain External records reviewed: Imaging reviewed: X-ray of the lumbar spine from 2021 showed mild degenerative bone changes. No evidence of lumbar spine fracture or spondylolisthesis Factors affecting care: history of degenerative disc disease at L5-S1 Social determinants of health: none History obtained from others: none Consults: none [facility] Narrative: Patient was initially hemodynamically stable, afebrile and nontoxic-appearing. Exam without focal neurologic deficits. No red flags by history. The patient presented complaining of back pain. No trauma endorsed to suggest fracture or dislocation. There was no evidence to support genitourinary etiology. There is also no evidence to suggest vascular pathology such as AAA dissection. No fevers or other evidence to suspect infectious processes, abscess , osteomyelitis etc. The patient?s neurological exam is normal with normal motor and sensory. There is no saddle paresthesias reported and no bowel or bladder incontinence or retention. I suspect the pain is mechanical in nature. I gave 4 mg IM morphine, 60 mg IM Norflex, oral Tylenol and topical lidocaine patch for initial stabilization in the emergency department. I gave prescription for oxycodone, Flexeril and encourage patient continue taking already prescribed steroids as well as using Tylenol and Aleve for additional relief. Clinical suspicion, plan of care and management was discussed with the patient. The patient was instructed to follow up with their health care provider. The patient was also instructed to return if the pain worsened, changed, or developed weakness or bowel or bladder trouble. The patient agreed with plan. I completed a structured, evidence-based clinical evaluation to screen for acute non-traumatic spinal emergencies. The patient has a normal detailed neurologic exam and red flag historical factors were negative. The evidence indicates that the patient is very low risk for an acute spinal emergency and this is consistent with my clinical intuition. The risk of further workup is higher than the likelihood of the patient having a spinal epidural abscess or other dangerous emergency spinal condition. It is, therefore, in the patient?s best interest not to do additional emergent testing at this time. Shared Decision-Making I have discussed with the patient my clinical impression and the result of an evidence-based clinical evaluation to screen for spinal epidural abscess and other spinal emergencies, as well as the risk of further testing and hospitalization. The evidence shows that the risk for an acute spinal emergency is less than 1%. Although the risk of an acute spinal emergency has not been completely eliminated, the risks of further testing likely exceed any potential benefit, and the patient agrees with not pursuing further emergent evaluation for causes of back pain at this time. The patient and/or family, caregivers express understanding. The patient and/or family, caregivers agrees with the plan. Shared decision making: I will have a discussion with the patient and or visitors regarding risk/benefits of further testing or admission. They will be made aware of of the risk/benefits inherent in this decision they will be given the opportunity to voice understanding. Total critical care time today provided was at least 0 minutes. This excludes separately billable procedures. Critical care time (if documented) is secondary to the patient having high probability of clinically significant/life threatening deterioration in the patient's condition which required my urgent intervention. Impression: 1. Acute on chronic back pain 2. History of degenerative disc disease Dispo: Discharge home This note was generated with [employer] software. It may contain incorrect words, spelling, and punctuation that were not noted in review of the chart prior to signing. Discharge Plan Triage Chief Complaint: Back ED Provider: Werner Lazo Dx/Rx/DC Orders Prescriptions: No Action naproxen-esomeprazole [Vimovo] 500-20 mg tablet,IR,delayed rel,biphasic 1 tab PO BID PRN (Reason: pain) bupropion HCl 200 mg tablet sustained-release 12 hr 200 mg PO BID [id number] mg tablet 1 tab PO DAILY Vitamin B-12 50 mcg tablet 50 mcg PO DAILY magnesium oxide 250 mg magnesium tablet 250 mg PO DAILY nitrofurantoin macrocrystal 50 mg capsule 50 mg PO DAILY PRN (Reason: After [place]) Rx Instructions: must administer with a meal/food levothyroxine 50 mcg tablet 1 tab PO DAILY hydrocodone-acetaminophen 5-325 mg tablet 1 tab PO Q4H PRN (Reason: pain) 5 Days Qty: 20 0RF cholecalciferol (vitamin D3) [Vitamin D3] 25 mcg (1,000 unit) capsule 25 mcg PO DAILY Primary Care Provider: Brianna Brown Referrals: Brianna Brown DO [Primary Care Provider] - Print Language: Hebrew
[2024-06-27] MEDS: Lidocaine 5% Patch 1 PATCH TOPICAL (09:46)
[2024-06-27] MEDS: Acetaminophen 325 MG Tablet 650 MG PO (09:48)
[2024-06-27] MEDS: Morphine 4 MG/ML Syringe IM (09:49)
[2024-06-27] MEDS: Orphenadrine 60 MG/2 ML Ampul IM (09:49)
[2024-06-27 10:18] VITALS: BMI 29.0
[2024-06-27 10:28] VITALS: BP 120/80; PULSE 80; RESP 16; TEMP 36.6; O2SAT 100
== END 2024-06-27 10:29 | disposition home or self-care (01) ==
PROVIDERS: Emergency Provider Emergency Medicine; PCP Family Medicine; Visit Provider Emergency Medicine
DX: M54.9 Dorsalgia, unspecified (principal); G89.29 Other chronic pain; E78.00 Pure hypercholesterolemia, unspecified
CPT/HCPCS: 96372; 99282

== ENCOUNTER → 2024-07-27 | Outpatient (CLI) | payer BC, SELFPAY ==
--- NOTE | 2024-07-27 06:41 | MRI_ITS ---
STUDY: MRI LUMBAR SPINE WITHOUT CONTRAST REASON FOR EXAM: Female, 44 years old. pain across lower back, doesn''t radiate TECHNIQUE: Standardized fat and water weighted pulse sequences were obtained in the sagittal and axial planes. COMPARISON: X-ray 06/29/2024 FINDINGS: T12-L1: Normal endplates. Normal disc height, hydration and morphology. Normal bilateral facet joints. Normal central canal and bilateral lateral recesses. Normal bilateral intervertebral neural foramina. Normal lumbar lordosis. There is no substantial scoliosis. Normal conus medullaris that terminates at the L1/L2. L1-2: Normal endplates. Normal disc height, hydration and morphology. Normal bilateral facet joints. Normal central canal and bilateral lateral recesses. Normal bilateral intervertebral neural foramina. L2-3: Disc desiccation but no disc protrusion, spinal stenosis, or neural foraminal stenosis. L3-4: Disc desiccation with a central annular tear but no disc protrusion, spinal stenosis, or neural foraminal stenosis. L4-5: Mild broad disc protrusion produces mild spinal stenosis and mild bilateral neural foraminal stenosis. L5-S1: Mild broad disc protrusion produces mild spinal stenosis and mild bilateral neural foraminal stenosis. Normal visualized sacral ala. Normal visualized paraspinous soft tissue structures. MRI/Spine Lumbar (Routine) IMPRESSION: Multilevel degenerative changes, as described above. Electronically Signed: Wayne Salazar MD at 23:23 EDT ,
== END | disposition home or self-care (01) ==
LOC: MRI 06:30
PROVIDERS: PCP Family Medicine; Referring Provider Student in an Organized Health Care Education/Training Program; Visit Provider Student in an Organized Health Care Education/Training Program
DX: M46.86 Other specified inflammatory spondylopathies, lumbar region (principal); M46.1 Sacroiliitis, not elsewhere classified
CPT/HCPCS: 72148

== ENCOUNTER → 2024-10-19 | Outpatient (CLI) | payer BC, SELFPAY | END | disposition home or self-care (01) | LOC: LAB 06:10 | PROVIDERS: PCP Family Medicine; Referring Provider Internal Medicine Endocrinology, Diabetes & Metabolism; Visit Provider Internal Medicine Endocrinology, Diabetes & Metabolism | DX: E03.8 Other specified hypothyroidism (principal) | CPT/HCPCS: 36415; 84443 ==

== ENCOUNTER → 2024-10-25 | Outpatient (CLI) | payer BC, SELFPAY ==
[2024-10-25 11:00] LABS: Estradiol 128.4 pg/mL
[2024-11-02 11:07] LABS: Testosterone, % Free 2.14 % (0.50-2.80); Testosterone, Free 0.21 ng/dL (0.10-0.85); Testosterone, Total 10 ng/dL (4-50)
== END | disposition home or self-care (01) ==
LOC: LAB 10:08
PROVIDERS: PCP Family Medicine
DX: N95.9 Unspecified menopausal and perimenopausal disorder (principal); R68.82 Decreased libido
CPT/HCPCS: 36415; 82670; 84270; 84402; 84403

== ENCOUNTER → 2024-11-16 | Outpatient (CLI) | payer BC, SELFPAY ==
[2024-11-16 07:34] LABS: AST(SGOT) 22 U/L (15-37); Alanine Aminotransfer ALT/SGPT 30 U/L (13-56); Albumin, Serum 3.5 g/dL (3.2-5.0); Alkaline Phosphatase 79 U/L (45-117); Anion Gap 3 (5-15); BUN 15 mg/dL (7-18); BUN/Creat Ratio 18.5 RATIO (10-20); Calcium,Total 8.8 mg/dL (8.5-10.1); Chloride 106 mmol/L (98-107); Cholesterol 255 mg/dL (200); Creatinine, Serum 0.81 mg/dL (0.55-1.02); EST Glomerular Filtration Rate 81 mL/min (>60); Est Glom Filt Rate - Afr Amer 98 mL/min (>60); Globulin 3.5 g/dL (2.2-4.2); Glucose 92 mg/dL (74-106); High Density Lipoprotein 74 mg/dL; Potassium 4.3 mmol/L (3.5-5.1); Sodium Level 137 mmol/L (136-145); Triglycerides 107 mg/dL; Very Low Density Lipoprotein 21 mg/dL (5-40)
[2024-11-16 08:13] LABS: Vitamin D,25 Hydroxy 46.5 ng/mL
== END | disposition home or self-care (01) ==
LOC: LAB 06:29
PROVIDERS: PCP Family Medicine; Referring Provider Family Medicine; Visit Provider Family Medicine
DX: Z01.419 Encounter for gynecological examination (general) (routine) without abnormal findings (principal); E78.5 Hyperlipidemia, unspecified; Z13.1 Encounter for screening for diabetes mellitus
CPT/HCPCS: 36415; 80053; 80061; 82306

== ENCOUNTER → 2024-12-19 | Outpatient (CLI) | payer BC, SELFPAY | END | disposition home or self-care (01) | LOC: LAB 06:14 | PROVIDERS: PCP Family Medicine; Referring Provider Internal Medicine Endocrinology, Diabetes & Metabolism; Visit Provider Internal Medicine Endocrinology, Diabetes & Metabolism | DX: E03.8 Other specified hypothyroidism (principal) | CPT/HCPCS: 36415; 84443 ==

== ENCOUNTER → 2025-02-21 | Outpatient (CLI) | payer BC, SELFPAY | END | disposition home or self-care (01) | LOC: LAB 08:02 | PROVIDERS: PCP Family Medicine | DX: R68.82 Decreased libido (principal) | CPT/HCPCS: 36415; 84270; 84402; 84403 ==

== ENCOUNTER → 2025-04-24 | Outpatient (CLI) | payer BC, SELFPAY | END | disposition home or self-care (01) | LOC: LAB 08:53 | PROVIDERS: PCP Family Medicine; Referring Provider Internal Medicine Endocrinology, Diabetes & Metabolism; Visit Provider Internal Medicine Endocrinology, Diabetes & Metabolism | DX: E03.8 Other specified hypothyroidism (principal) | CPT/HCPCS: 36415; 84443 ==

== ENCOUNTER → 2025-07-10 | Outpatient (CLI) | payer BC, SELFPAY ==
--- OUTSIDE RECORDS SUMMARY | 2025-07-10 06:22 | XMS RPT_ITS | CCD ---
Author Organization [facility] Care Team Providers Care Volunteer Services Assistant Name Role Phone No, Physician Primary Care Provider Unavaildiana e ARNOLD CLEVELAND DO Primary Care Physician [phone] Dr. Arnold Cleveland Primary Care Provider Yessica Monroy Attending Provider Unavailable Dr. Arnold Cleveland Referring Provider [phone] Dr. Raghavendra Barry Attending Provider [phone] Dr. Raghavendra Barry Other Provider ARNOLD CLEVELAND DO Primary Care Physician ARNOLD CLEVELAND DO Attending Unavailable KEVIN DOARNOLD Primary Care Unavailable KEVIN DOARNOLD Attending Unavailable KEVIN DOARNOLD Primary Care Unavailable KEVIN DOARNOLD Attending Unavailable KEVIN DOARNOLD Primary Care Unavailable KEVIN DOARNOLD Attending Unavailable KEVIN DOARNOLD Primary Care Unavailable Shanna Justice DO Primary Care Provider SHANNA JUSTICE Primary Care Unavailab le KEVIN DOARNOLD Attending Unavailable KEVIN DOANROLD Primary Care Unavailable ARNOLD CLEVELAND DO Attending Unavailable ARNOLD CLEVELAND DO Primary Care Unavailable Dr. Arnold Cleveland DO Primary Care Provider [phone] Dr. Arnold Cleveland DO Attending Provider Dr. Arnold Cleveland DO Referring Provider Dr. Charlene Mitchell MD Attending Provider Dr. Charlene Mitchell MD Referring Provider SIENNA LOVE Attending Provider [phone] Arnold Cleveland DO Primary Care Provider [phone] Irvin SOTO, Dr. Chang Attending Provider Irvin SOTO, Dr. Chang Referring Provider Yari, Gypsy Referring Unavailable Yari, Gypsy Attending Unavailable Kevin, Arnold Primary Care Unavailable Irvin, Charlene Referring Unavailable Irvin, Charlene Attending Unavailable Kevin, Arnold Primary Care Unavailable Kevin, Arnold Primary Care Unavailable Werner Lazo Attending Unavailable Kevin, Arnold Primary Care Unavailable Kevin, Arnold Referring Unavailable Kevin, Arnold Attending Unavailable Kevin, Arnold Primary Care Unavailable Stormont, Gasper Referring Unavailable Stormont, Gasper Attending Unavailable Stormont, Gasper Attending Unavailable Kevin, Arnold Primary Care Unavailable Kevin, Arnold Primary Care Unavailable Rickey Salinas Attending Unavailable Kevin, Arnold Primary Care Unavailable Yari, Gypsy Attending Unavailable Kevin, Arnold Referring Unavailable Irvin, Charlene Referring Unavailable Irvin, Charlene Attending Unavailable Kevin, Arnold Primary Care Unavailable Storm[place], Gasper Attending Unavailable Kevin, Arnold Primary Care Unavailable Kevin, Arnold Primary Care Unavailable Storm[place], Gasper Referring Unavailable Storm[place], Gasper Attending Unavailable Irvin, Charlene Referring Unavailable Irvin, Charlene Attending Unavailable Kevin, Arnold Primary Care Unavailable Allergies Allergy Classification Reported Allergen(s) Allergy Type Date of Onset Reaction(s) Facility (9 sources) Cephalexin; Translations: [cephalexin] Drug Allergy 4 [facility] (15 sources) Cephalosporins (Antibiotic); Translations: [cephalosporins] Drug allergy 9 [facility] (6 sources) seasonal enviromental Allergy to substance Drainage procedure (procedure), Cough (finding) [facility] (4 sources) Seasonal Allergies: Uncoded; Translations: [Seasonal Allergies: Uncoded] Allergy to substance 4 Cough, Drainage [facility] (1 source) Cephalexin Drug Allergy 4 [facility] Repository Medications Current Medications Medication Drug Class(es) Dates Sig (Normalized) Sig (Original) acetaminophen 325 mg / HYDROcodone bitartrate 5 mg oral tablet (8 sources) Opioid Agonist Start: 05-16-2022 take 1 tablet by mouth every four hours as needed for pain Hydrocodone-Aceta minophen 5-325 mg tablet Active 1 {tbl} PO Q4H as needed for pain 27 03May 16, 2022 Start: 05-16-2022 take 1 tablet by zandra th every four hours Hydrocodone-Acetaminophen Active 1 TABLE T PO Q4H 27 03May 16, 2022 12 hr buPROPion hydrochloride 200 mg extended release oral tablet (20 sources) Aminoketone Start: 11-03-2023 take 1 tablet by mouth twice daily Bupropion Hcl 200 mg tablet sustained-release 12 hr Active 200 mg PO TWICE A DAY November 03, 2023 1:00am Start: 10-26-2023 take 1 tablet by zandra th every hour, then take 1 tablet by mouth twice daily buPROPion 200 mg/12 hours (SR) oral tablet, extended release Dose : 200 mg = 1 tab(s), Oral, BID, Change in dosing, # 180 tab(s), 0 Refill(s), Pharmacy: [facility] #[id number], Anxiety and depression, 171, cm, 10/26/23 9:05:00 EST, Height, kg, 10/26/23 9:05:00 EST, Dosing Weight Start Date: 10/26/23 Status: Ordered Start: 10-27-2022 take 1 tablet by zandra th every hour, then take 1 tablet by mouth every twenty-four hours buPROPion 150 mg/24 hours (XL) oral tablet, extended release Dose : 150 mg = 1 tab(s), Oral, q24h, # 90 tab(s), 3 Refill(s), Pharmacy: [facility] #[id number], Anxiety and depression, 172, cm, 10/27/22 10:37:00 EST, Height, kg, 10/27/22 10:37:00 EST, Dosing Weight Start Date: 10/27/22 Status: Ordered Start: 05-16-2022 End: 11-03-2023 take 1 tablet by mouth once daily Bupropion Hcl 150 mg tablet extended release 24 hr Discontinued 1 {tbl} PO DAILY May 16, 2022 12:00am November 03, 2023 12:23pm Start: 05-16-2022 End: 11-03-2023 take 1 tablet by mouth once daily Bupropion Hcl 300 mg tablet extended release 24 hr Discontinued 1 {tbl} PO DAILY May 16, 2022 12:00am November 03, 2023 12:19pm Start: 09-24-2021 take 1 tablet by zandra th every hour, then take 1 tablet by mouth once daily buPROPion 300 mg/24 hours (XL) oral tablet, extended release Dose : 300 mg = 1 tab(s), Oral, qDay, increased dose, # 30 tab(s), 2 Refill(s), Pharmacy: [facility] [address], Anxiety and depression, 171, cm, 04/28/21 9:02:00 EDT, Height, kg, 04/28/21 9:02:00 EDT, Dosing Weight Start Date: 09/24/21 Status: Ordered calcium carbonate 1250 mg oral tablet (1 source) Start: 01-31-2019 take 1 tablet by mouth twice daily Calcium Carbonate (Calcium 500) 500 mg calcium (1,250 mg) tablet Active 500 MG PO TWICE A DAY January 31, 2019 12:00am chlorhexidine gluconate 1.2 mg/ml mouthwash (2 sources) Start: 08-31-2023 chlorhexidine 0.12% oral rinse liquid RINSE WITH 1/2 OUNCE BY MOUTH FOR 30 SECONDS THEN SPIT OUT twice a day Start Date: 08/31/23 Status: Ordered cholecalciferol 0.025 mg oral capsule (6 sources) Vitamin D Start: 11-10-2023 take 1 capsule by mouth once daily Cholecalciferol (Vitamin D3) (Vitamin D3) 25 mcg (1,000 unit) capsule Active 25 ug PO DAILY November 10, 2023 1:00am Start: 05-16-2022 take 1 capsule by mo ut every week Cholecalciferol (Vitamin D3) Active 1 CAP PO EVERY WEEK May 15, 2022 11:00pm Chondroitin Sulfates / Glucosamine (3 sources) Start: 05-05-2022 take 1 tablet by mouth once daily Glucosamine Chondroitin 1 tablet, Oral, qDay, 0 Refill(s) Start Date: 05/05/22 Status: Ordered cobamamide 0.1 mg / vitamin b12 5 mg sublingual tablet (1 source) Vitamin B12 Start: 01-31-2019 Cyanocobalamin-Cobama mide (B12) 5,000-100 mcg lozenge Active LOZENGE SL January 31, 2019 12:00am Culturelle [employer] (1 source) Start: 08-07-2020 take 1 capsule by mouth once daily Culturelle Advanced [employer] Defense Dose = 1 cap(s), Oral, qDay, 0 Refill(s) Start Date: 08/07/20 Status: Ordered cyclobenzaprine hydrochloride 5 mg oral tablet (9 sources) Muscle Relaxant Start: 06-27-2024 take 1 tablet by mouth three times daily as needed for muscle spasms Cyclobenzaprine 5 mg tablet Active 5 mg PO THREE TIMES A DAY as needed for muscle spasm 9 June 27, 2024 12:00am Start: 06-10-2019 End: 12-14-2019 take 1 tablet by mouth three times daily as needed for muscle spasms Cyclobenzaprine 10 MG tablet Discontinued 10 mg PO THREE TIMES A DAY as needed for Muscle Spasm June 10, 2019 12:00am December 14, 2019 9:37am esomeprazole 20 mg / naproxen 500 mg delayed release oral tablet (10 sources) Proton Pump Inhibitor, Nonsteroidal Anti-inflammatory Drug Start: 01-31-2019 End: 11-03-2023 Naproxen-Esomeprazole (Vimovo) 500-20 mg tablet,IR,delayed rel,biphasic Active 1 {tbl} PO TWICE A DAY as needed for pain November 03, 2023 12:20pm 84 hr estradiol 0.96109 mg/hr transdermal system (1 source) Estrogen Start: 06-06-2024 apply 1 dose transdermal route two times weekly Estradiol 0.0375 mg/24 hr Apply 1 patch twice a week by transdermal route for 28 days. 0 06/06/2024 Active Fish Oils (4 sources) Start: 08-07-2020 Fish Oil 1000 mg oral capsule Dose : 2,000 mg = 2 cap(s), Oral, qDay, # 90 cap(s), 0 Refill(s) Start Date: 08/07/20 Status: Ordered Start: 08-07-2020 Fish Oil 1000 mg oral capsule Dose : 1,000 mg = 1 cap(s), Oral, qDay, # 90 cap(s), 0 Refill(s) Start Date: 08/07/20 Status: Ordered Yiaqvpva-Giyjs-Psl8-C-Mitchell-B or (1 source) Start: 11-03-2023 take 1 tablet by mouth once daily Gxcxfksz-Zqypq-Xpn5-C-Mitchell-Bor Active 1 TABLET PO DAILY November 03, 2023 12:00am Jkxwwwsv-Utqks-Zne9-C-Mitchell-B or [id number] mg tablet (2 sources) Start: 11-03-2023 Sqcmotyg-Dnxld-Wpi2-C-Mitchell-B or [id number] mg tablet Active 1 {tbl} PO DAILY November 03, 2023 1:00am levothyroxine sodium 0.05 mg oral tablet (11 sources) l- Th yr ox in e Start: 05-16-2022 Levothyroxine 50 mcg tablet Active 1 {tbl} PO DAILY May 16, 2022 12:00am Start: 10-29-2021 take 1 tablet by zandra th once daily levothyroxine (SYNTHROID) 50 mcg tablet Take 1 tablet by mouth once daily. 0 10/29/2021 Active Start: 10-29-2021 take 1 tablet by zandra th once daily levothyroxine 50 mcg (0.05 mg) oral tablet take 1 tablet by mouth once daily Start Date: 10/29/21 Status: Ordered magnesium oxide 250 mg oral tablet (6 sources) Start: 05-05-2022 take 1 tablet by mouth once daily Magnesium Oxide 250 mg magnesium tablet Active 250 mg PO DAILY November 03, 2023 1:00am naproxen sodium 220 mg oral capsule (9 sources) Nonsteroidal Anti-inflammatory Drug Start: 12-03-2022 Aleve 220 mg oral capsule Dose : 440 mg = 2 cap(s), Oral, Once, PRN as needed for pain, 0 Refill(s) Start Date: 12/03/22 Status: Ordered Start: 06-10-2019 End: 12-14-2019 take 1 tablet by mouth twice daily as needed Naproxen 500 MG tablet Discontinued 500 mg PO TWICE DAILY NEEDED June 10, 2019 12:00am December 14, 2019 9:19am nitrofurantoin, macrocrystals 50 mg oral capsule (5 sources) Nitrofuran Antibacterial Start: 08-31-2023 take 1 capsule by mouth once daily at mealtime Nitrofurantoin Macrocrystal 50 mg capsule Active 50 mg PO DAILY as needed for After [place] November 03, 2023 1:00am must administer with a meal/food nitrofurantoin, macrocrystals 25 mg / nitrofurantoin, monohydrate 75 mg oral capsule (1 source) Nitrofuran Antibacterial Start: 06-09-2024 nitrofurantoin monohydrate and macrocrystal (MACROBID) 100 mg capsule oxyCODONE hydrochloride 5 mg oral tablet (2 sources) Opioid Agonist Start: 06-27-2024 take 1 tablet by mouth every six hours as needed for pain Oxycodone 5 mg tablet Active 5 mg PO EVERY 6 HOURS as needed for pain 12 3 June 27, 2024 predniSONE 10 mg oral tablet (1 source) Start: 06-16-2024 End: 07-01-2024 predniSONE (DELTASONE) 10 mg tablet Indications: Rhus dermatitis Take 4 tabs daily x5 days, then 2 tabs daily for 5 days, then 1 tab daily for 5 days. 35 tablet 0 06/16/2024 07/01/2024 Active progesterone 100 mg oral capsule (1 source) Progesterone Start: 06-06-2024 take 1 capsule by mouth once daily at bedtime progesterone micronized (PROMETRIUM) 100 mg capsule Take 1 capsule every day by oral route at bedtime for 30 days. 0 06/06/2024 Active sertraline 25 mg oral tablet (1 source) Serotonin Reuptake Inhibitor Start: 12-14-2019 Sertraline Active MG PO December 14, 2019 1:00am triamcinolone acetonide 1 mg/ml topical cream (1 source) Corticosteroid Start: 06-16-2024 End: 06-26-2024 triamcinolone acetonide (KENALOG) 0.1 % cream Indications: Rhus dermatitis Apply 1 application to affected area three times a day for 10 days. Apply sparingly to area for rash/itching. 80 g 0 06/16/2024 06/26/2024 Active vitamin b12 0.05 mg oral tablet (3 sources) Vitamin B12 Start: 11-03-2023 take 1 tablet by mouth once daily Cyanocobalamin (Vitamin B-12) (Vitamin B-12) 50 mcg tablet Active 50 ug PO DAILY November 03, 2023 1:00am Vitamin B12 50 mcg oral tablet (1 source) Start: 10-26-2023 take 1 ug by mouth once daily Vitamin B12 50 mcg oral tablet mcg = tab(s), Oral, qDay, 0 Refill(s) Start Date: 10/26/23 Status: Ordered Vitamin D3 125 mcg (5000 intl units) oral capsule (1 source) Start: 10-26-2023 Vitamin D3 125 mcg (5000 intl units) oral capsule Dose : 125 mcg = 1 cap(s), Oral, qDay, w/ Vit. A & Vit. K, # 100 cap(s), 0 Refill(s) Start Date: 10/26/23 Status: Ordered Completed/Discontinued Medications Medication Drug Class(es) Dates Sig (Normalized) Sig (Original) nitrofurantoin macrocrystals-monohyd rate 100 mg oral capsule (1 source) Start: 10-29-2021 End: 11-03-2021 nitrofurantoin macrocrystals-monohy drate 100 mg oral capsule Dose : 100 mg = 1 cap(s), Oral, BID, 0 Refill(s), 79.7 Start Date: 10/29/21 Stop Date: 11/03/21 Status: Ordered traMADol hydrochloride 50 mg oral tablet (7 sources) Opioid Agonist Start: 02-21-2018 End: 12-14-2019 take 1 tablet by mouth every four hours as needed for pain Tramadol 50 MG tablet Discontinued 50 mg PO EVERY 4 HOURS NEEDED as needed for Pain February 21, 2018 9:18am December 14, 2019 9:18am Vitamin D3 1250 mcg (50,000 intl units) oral capsule (2 sources) Start: 05-05-2022 End: 04-30-2023 Vitamin D3 1250 mcg (50,000 intl units) oral capsule Dose : 50,000 International_Unit = 1 cap(s), Oral, qWeek, # 13 cap(s), 3 Refill(s), Pharmacy: [facility], Vitamin D deficiency, 171.3, cm, 05/05/22 8:30:00 EDT, Height, kg, 05/05/22 8:30:00 EDT, Dosing Weight Start Date: 05/05/22 Stop Date: 04/30/23 Status: Ordered Vitamin D3 50,000 intl units (1250 mcg) oral capsule (1 source) Start: 09-20-2020 End: 09-15-2021 Vitamin D3 50,000 intl units (1250 mcg) oral capsule Dose : 50,000 International_Unit = 1 cap(s), Oral, qWeek, # 13 cap(s), 3 Refill(s), [facility]: [facility], Vitamin D deficiency, 171, cm, 09/18/20 8:00:00 EST, Height, kg, 09/18/20 8:00:00 EST, Dosing Weight Start Date: 09/20/20 Stop Date: 09/15/21 Status: Ordered Problems Active Problems Problem Classification Problem Date Documented Date Episodic/Chronic Allergic reactions (1 source) Contact dermatitis due to Genus Toxicodendron; Translations: [Unspecified contact dermatitis due to plants, except food] 06-16-2024 Episodic Anxiety disorders (6 sources) 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 Diseases of mouth; excluding dental (6 sources) 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 Disorders of lipid metabolism (5 sources) Hyperlipidemia; Translations: [Hyperlipidemia, unspecified] Onset: 05-18-2025 08-31-2023 Chronic Malaise and fatigue (6 sources) Fatigue 11-07-2019 Episodic Menopausal disorders (1 source) Unspecified menopausal and perimenopausal disorder; Translations: [Unspecified menopausal and perimenopausal disorder] Onset: 11-21-2024 Chronic Nutritional deficiencies (7 sources) Vitamin D deficiency; Translations: [Vitamin D deficiency, unspecified] Onset: 11-14-2024 05-05-2022 Chronic Other connective tissue disease (2 sources) Polymyalgia 12-09-2023 Chronic Other connective tissue disease (6 sources) H/O: osteoarthritis; Translations: [Personal history of other diseases of the musculoskeletal system and connective tissue] 05-24-2022 Episodic Other diseases of kidney and ureters (6 sources) Hydronephrosis 11-03-2019 Episodic Comment on above: right Other non-traumatic joint disorders (3 sources) Elbow joint pain 10-26-2023 Episodic Other non-traumatic joint disorders (3 sources) Pain in wrist 10-26-2023 Episodic Other non-traumatic joint disorders (2 sources) Multiple joint pain 12-09-2023 Episodic Other nutritional; endocrine; and metabolic disorders (6 sources) Weight gain 08-07-2020 Episodic Other nutritional; endocrine; and metabolic disorders (4 sources) Overweight in adulthood with body mass index of 25 or more but less than 30 08-31-2023 Episodic Other screening for suspected conditions (not mental disorders or infectious disease) (11 sources) Viral screening status; Translations: [Patient encounter status] Onset: 11-14-2024 10-27-2022 Episodic Residual codes; unclassified (4 sources) Screening due 08-31-2023 Episodic Residual codes; unclassified (2 sources) Chronic pain 01-27-2024 Episodic Residual codes; unclassified (2 sources) Decreased libido; Translations: [Decreased libido] Onset: 02-26-2025 Episodic Spondylosis; intervertebral disc disorders; other back problems (7 sources) Degeneration of lumbosacral intervertebral disc; Translations: [Other intervertebral disc degeneration, lumbosacral region] Onset: 06-29-2024 2022 Chronic Thyroid disorders (14 sources) Thyroid nodule; Translations: [Nontoxic single thyroid nodule] Onset: 04-30-2025 Chronic Unclassified (20 sources) Patient encounter status 09-18-2020 Unclassified (4 sources) Influenza vaccination declined 08-31-2023 Unclassified (4 sources) Never used tobacco 08-31-2023 Unclassified (4 sources) Pain of knee region 12-03-2022 Unclassified (3 sources) Cancer cervix screening status 10-26-2023 Unclassified (1 source) Low back pain, unspecified; Translations: [Low back pain, unspecified] Onset: 06-29-2024 Urinary tract infections (9 sources) Recurrent urinary tract infection; Translations: [Urinary tract infectious disease] 11-27-2021 Episodic Past or Other Problems Problem Classification Problem Date Documented Date Episodic/Chronic Spondylosis; intervertebral disc disorders; other back problems (20 sources) Herniation of lumbar intervertebral disc with sciatica; Translations: [Sciatica] Onset: 07-07-2024 11-03-2019 Episodic Results Test Name Value Interpretation Reference Range Facility TSH DL <= 0.005 mIU/L QnOrde red By: Charlene Mitchell on 04-24-2025 TSH Qn 1.230 uIU/mL 0.300-4.200 [facility] Thyroid Stim Hormone (TSH)on 04-24-2025 TSH 1.230 uIU/mL Normal 0.300-4.200 [facility] Comment on above: Performed By: #### L 3100.5060, L3100.5170, L3300.1750, L3100.5400, L3100.5125, L501.9985, L3100.5310 #### [facility] [address] [place], [address] Sex Hormone-binding Globulin on 03-10-2025 SHBG 71.8 nmol/L Normal 24.6-122.0 [facility] Comment on above: Result Comment: Perf ormed at: [facility] [address] [id number] Cylinder Machine Operator: Roland Hedrick PhD, Phone: [phone] Performed at: [facility] [address] [id number] Cylinder Machine Operator: William Gonzalez MD, Phone: [phone] Performed By: #### L 3100.5060, L3100.5170, L3300.1750, L3100.5400, L3100.5125, L501.9985, L3100.5310 #### [facility] [address] [place], [address] Testosterone, Total / Freeon 03-10-2025 TESTOSTER,FREE 0.56 ng/dL Normal 0.10-0.85 [facility] Comment on above: Order Comment: N Performed By: #### L 3100.5060, L3100.5170, L3300.1750, L3100.5400, L3100.5125, L501.9985, L3100.5310 #### [facility] [address] [place], [address] TESTOSTER,TOTAL 24 ng/dL Normal -50 [facility] Comment on above: Order Comment: N Performed By: #### L 3100.5060, L3100.5170, L3300.1750, L3100.5400, L3100.5125, L501.9985, L3100.5310 #### [facility] [address] [place], [place], [id number] (215) TESTOSTERONE,%F 2.32 Normal 0.50-2.80 [facility] Comment on above: Order Comment: N Performed By: #### L 3100.5060, L3100.5170, L3300.1750, L3100.5400, L3100.5125, L501.9985, L3100.5310 #### [facility] [address] [place], [place], [id number] Free testosterone percentage on 02-21-2025 Testosterone Free/Testosterone.to enrique [Mass fraction] 2.32 % 0.50-2.80 [facility] Serum or plasma free testost erone measurement (mass/volume)on 02-21-2025 Testosterone Free [Mass/Vol] 0.56 ng/dL 0.10-0.85 [facility] Serum or plasma sex hormone binding globulin measurement (moles/volume)on 02-21-2025 Sex hormone binding globulin [Moles/Vol] 71.8 nmol/L 24.6-122.0 [facility] Comment on above: Performed at: [facility] [address] [id number] Director: Roland Hedrick PhD, Phone: [phone] at: - [facility] [id number] Director: William Gonzalez MD, Phone: [phone] Testosterone, totalon 2024 Testosterone [Mass/Vol] 24 ng/dL 4-50 [facility] TSH QnOrdered By: Charlene willoughby on 12-19-2024 Thyroid Stimulating Hormone (TSH) 1.400 uIU/mL 0.358-3.740 [facility] Thyroid Stim Hormone (TSH)on 12-19-2024 TSH 1.400 uIU/mL Normal 0.358-3.740 [facility] Comment on above: Performed By: #### L 3100.5060, L3100.5170, L3300.1750, L3100.5400, L3100.5125, L501.9985, L3100.5310 #### [facility] [address] [place], [address] MA MAMMOGRAM SCREENING BILAT ERAL W/TOMOon 12-04-2024 MA MAMMOGRAM SCREENING BILATERAL W/ARTURO ORIGINAL FROM: [facility] [address] [address] PROCEDURE FOR: SHARON WAYNE [address] [place] [address] Home: PID#: [id number] Exam#: [id number] : 1980 Age: 44 TO: ARNOLD CLEVELAND DO [address] [address] Fax: NO FAX EXAMINATION: SCREENING DIGITAL BILATERAL MAMMOGRAM WITH TOMOSYNTHESIS, 11/30/2024 8:01 am TECHNIQUE: Screening mammography of the bilateral breasts was performed with tomosynthesis. 2D standard and 3D tomosynthesis combination imaging performed through both breasts in the MLO and CC projection. Computer aided detection was utilized in the interpretation of this exam. COMPARISON: November 15, 2023, November 09, 2022, January 26, 2019 HISTORY: Breast cancer screening. FINDINGS: BREAST DENSITY: The breasts are heterogeneously dense, which may obscure small masses. There is no suspicious mass, architectural distortion or microcalcification. Fibroglandular pattern is stable. IMPRESSION: No mammographic evidence of malignancy. Continued screening with annual mammograms is recommended. Farhad Pond risk calculations, generated with the history provided, report this patient's 10 year risk and lifetime risk for developing breast cancer at 1.6% and 8.7%, respectively. Based on this assessment tool, if the patient's calculated lifetime risk is below 20%, then the patient is considered at average risk for developing breast cancer. If the patient's calculated lifetime risk is at or above 20%, then the patient is considered high risk for developing breast cancer and may be a candidate for supplemental breast MRI screening in addition to annual mammographic screening per the [employer] [employer]. BIRADS: MAMMOGRAM BI-RADS: 1: Negative RECALL: 1 year screening RECALL TYPE: mammo LETTER SENT: Normal BI-RADS 1 and 2 Interpreted by: Aliya Sewell Preliminary Report By: Aliya Sewell Electronically signed By Aliya Sewell Dictated Date: 12/04/2024 9:47:55 AM Prelim Date: 12/04/2024 9:51:09 AM Sign Date: 12/04/2024 9:51:09 AM Ordering Provider: ARNOLD CLEVELAND Senior Technical Manager: DELFINA JO RT(R)(M)(CT) letter sent: Normal BI-RADS 1 and 2 Mammogram BI-RADS: 1 Negative Normal [facility] Mainframe Developer Cytology Reporton 2024 Mainframe Developer Cytology Report . 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 The josh High-Risk HPV DNA Test is not intended for use as a screening device for Pap normal women under age 30 and is not intended to substitute for regular Pap screening. The josh High-Risk HPV DNA Test is designed to augment existing methods for the detection of cervical disease and should be used in conjunction with clinical information derived from other diagnostic and screening tests, physical examinations and full medical history in accordance with appropriate patient management procedures. NOTE: A negative result does not preclude the presence of HPV infection because results depend on adequate specimen collection, absence of inhibitors and sufficient DNA to be detected. As of: 11/17/24 13:26 EST Pathology Reports Accession: Collected Date/Time: Received Date/Time: Pathologist: [id number] 11/14/2024 09:37 EST 11/14/2024 18:00 EST COMMENT: This Pap Test was successfully processed and evaluated with the assistance of the [employer] ThinPrep Test Imaging System. Electronically Signed by Pathology report verified by [facility] Screened by: KK Electronically signed by Sasha PATEL (ASCP) Sign-Out Date: 11/17/2024 13:27 Performing Lab: [facility], [address] [place] [address] Pathology Dept Disclaimer The Pap test is a screening test for cervical cancer. As evidenced by published data, it is subject to both inherent false negative and false positive results. Your patient's results should be interpreted in context with pertinent clinical history including gynecological examination. Normal [facility] Mainframe Developer Cytology Report #[id number] [facility] Work Phone: Mainframe Developer Cytology Report #[id number] [facility] Work Phone: Mainframe Developer Cytology Report #[id number] [facility] Work Phone: Mainframe Developer Cytology Report #[id number] [facility] Work Phone: Main[employer] Developer Cytology Report #[id number] [facility] Work Phone: Mainframe Developer Cytology Report #[id number] [facility] Work Phone: Mainframe Developer Cytology Report #[id number] [facility] Work Phone: Mainframe Developer Cytology Report #[id number] [facility] Work Phone: Mainframe Developer Cytology Report #[id number] [facility] Work Phone: HPVon 11-17-2024 HPV Interp Normal See Interp HPVN [facility] Comment on above: Order Comment: Order placed by AP_HPV_ORDER rule from [id number] Result Comment: High Risk HPV Typing: NEGATIVE HPV types 16, 18, 31, 33, 35, 39, 45, 51, 52, 56, 58, 59, 66 and 68 DNA were undetectable or below the pre-set threshold. The josh High-Risk HPV DNA Test is not intended for use as a screening device for Pap normal women under age 30 and is not intended to substitute for regular Pap screening. The josh High-Risk HPV DNA Test is designed to augment existing methods for the detection of cervical disease and should be used in conjunction with clinical information derived from other diagnostic and screening tests, physical examinations and full medical history in accordance with appropriate patient management procedures. NOTE: A negative result does not preclude the presence of HPV infection because results depend on adequate specimen collection, absence of inhibitors and sufficient DNA to be detected. See Interp HPVN Performed By: #### H PV #### [place] [address] HPV Source Cervix Normal [facility] Comment on above: Order Comment: Order placed by AP_HPV_ORDER rule from [id number] Performed By: #### H PV #### [place] [address] [id number] DOrdered By: Joanie Cleveland on 11-16-2024 Vitamin D 25-Hydroxy 46.5 ng/mL [facility] Comment on above: Vitamin D 25(OH) Sta tus Range Deficiency <20 ng/mL (50nmol/L) Insufficiency 20 - 30 ng/mL (50 - 75 nmol/L) Sufficiency 30 - 100 ng/mL (75 - 250 nmol/L) Toxicity >100 ng/mL (>250 nmol/L) Albumin to globulin ratioOrd ered By: Arnold Cleveland on 11-16-2024 Albumin/Globulin [Mass ratio] 1.0 {ratio} 0.9-2.4 [facility] Bilirubin, totalOrdered By: Arnold Cleveland on 11-16-2024 Bilirubin [Mass/Vol] 0.60 mg/dL 0.20-1.00 [facility] Comment on above: For patients on eltr ombopag therapy, use of Dimension Wheeler TBIL is not recommended. Blood urea nitrogen (BUN)/cr eatinine ratioOrdered By: Arnold Cleveland on 11-16-2024 Urea nitrogen/Creatinine [Mass ratio] 18.5 mg/mg 10-20 [facility] Carbon dioxide measurementOr dered By: Arnold Cleveland on 11-16-2024 CO2 [Moles/Vol] 28.0 mmol/L 21.0-32.0 [facility] Chloride measurementOrdered By: Arnold Cleveland on 11-16-2024 Chloride [Moles/Vol] 106 mmol/L 98-107 [facility] Comprehensive Metabolic Prof ilon 11-16-2024 Albumin [Mass/Vol] 3.5 g/dL Normal 3.2-5.0 [facility] Comment on above: Performed By: #### L 3100.5060, L3100.5170, L3300.1750, L3100.5400, L3100.5125, L501.9985, L3100.5310 #### [facility] [address], [address] Albumin/Globulin [Mass ratio] 1.0 {ratio} Normal 0.9-2.4 [facility] Comment on above: Performed By: #### L 3100.5060, L3100.5170, L3300.1750, L3100.5400, L3100.5125, L501.9985, L3100.5310 #### [facility] Laboratory [address] [place], [address] ALK P 79 U/L Normal 45-117 [facility] Comment on above: Performed By: #### L 3100.5060, L3100.5170, L3300.1750, L3100.5400, L3100.5125, L501.9985, L3100.5310 #### [facility] Laboratory [address] [place], [address] ALT [Catalytic activity/Vol] 30 U/L Normal 13-56 [facility] Comment on above: Performed By: #### L 3100.5060, L3100.5170, L3300.1750, L3100.5400, L3100.5125, L501.9985, L3100.5310 #### [facility] Laboratory [address] [place], [address] AST [Catalytic activity/Vol] 22 U/L Normal 15-37 [facility] Comment on above: Performed By: #### L 3100.5060, L3100.5170, L3300.1750, L3100.5400, L3100.5125, L501.9985, L3100.5310 #### [facility] [address] [place], [address] Bilirubin [Mass/Vol] 0.60 mg/dL Normal 0.20-1.00 [facility] Comment on above: Result Comment: For patients on eltrombopag therapy, use of Dimension Wheeler TBIL is not recommended. Performed By: #### L 3100.5060, L3100.5170, L3300.1750, L3100.5400, L3100.5125, L501.9985, L3100.5310 #### [facility] [address] [place], [address] BUN/CRE 18.5 RATIO Normal 10-20 [facility] Comment on above: Performed By: #### L 3100.5060, L3100.5170, L3300.1750, L3100.5400, L3100.5125, L501.9985, L3100.5310 #### [facility] Laboratory [address] [place], [address] CA,Total 8.8 mg/dL Normal 8.5-10.1 [facility] Comment on above: Performed By: #### L 3100.5060, L3100.5170, L3300.1750, L3100.5400, L3100.5125, L501.9985, L3100.5310 #### [facility] [address] [place], [address] Chloride [Moles/Vol] 106 mmol/L Normal 98-107 [facility] Comment on above: Performed By: #### L 3100.5060, L3100.5170, L3300.1750, L3100.5400, L3100.5125, L501.9985, L3100.5310 #### [facility] [address] [place], [address] CO2 [Moles/Vol] 28.0 mmol/L Normal 21.0-32.0 [facility] Comment on above: Performed By: #### L 3100.5060, L3100.5170, L3300.1750, L3100.5400, L3100.5125, L501.9985, L3100.5310 #### [facility] [address] [place], [address] Creatinine [Mass/Vol] 0.81 mg/dL Normal 0.55-1.02 [facility] Comment on above: Result Comment: The validity of the calculated GFR GFRAA in patients over 70 years has not been determined. Clinical correlation is essential. Performed By: #### L 3100.5060, L3100.5170, L3300.1750, L3100.5400, L3100.5125, L501.9985, L3100.5310 #### [facility] [address] [place], [address] EST GFR - AA 98 mL/min Normal >60 [facility] Comment on above: Result Comment: Afri can Tanzanian GFR Calc Performed By: #### L 3100.5060, L3100.5170, L3300.1750, L3100.5400, L3100.5125, L501.9985, L3100.5310 #### [facility] [address] [place], [address] GAP 3 Low 5-15 [facility] Comment on above: Performed By: #### L 3100.5060, L3100.5170, L3300.1750, L3100.5400, L3100.5125, L501.9985, L3100.5310 #### [facility] [address] [place], [address] GFR/1.73 sq M.predicted among non-blacks MDRD (S/P/Bld) [Vol rate/Area] 81 mL/min/{1.73_m2} Normal >60 [facility] Comment on above: Result Comment: Non- GFR Calc Performed By: #### L 3100.5060, L3100.5170, L3300.1750, L3100.5400, L3100.5125, L501.9985, L3100.5310 #### [facility] [address] [place], [address] Globulin (S) [Mass/Vol] 3.5 g/dL Normal 2.2-4.2 [facility] Comment on above: Performed By: #### L 3100.5060, L3100.5170, L3300.1750, L3100.5400, L3100.5125, L501.9985, L3100.5310 #### [facility] [address] [place], [address] Glucose [Mass/Vol] 92 mg/dL Normal 74-106 [facility] Comment on above: Performed By: #### L 3100.5060, L3100.5170, L3300.1750, L3100.5400, L3100.5125, L501.9985, L3100.5310 #### [facility] [address] [place], [address] Potassium [Moles/Vol] 4.3 mmol/L Normal 3.5-5.1 [facility] Comment on above: Performed By: #### L 3100.5060, L3100.5170, L3300.1750, L3100.5400, L3100.5125, L501.9985, L3100.5310 #### [facility] [address] [place], [address] Sodium [Moles/Vol] 137 mmol/L Normal 136-145 [facility] Comment on above: Performed By: #### L 3100.5060, L3100.5170, L3300.1750, L3100.5400, L3100.5125, L501.9985, L3100.5310 #### [facility] [address] [place], [address] T PROT 7.0 g/dL Normal 6.4-8.2 [facility] Comment on above: Performed By: #### L 3100.5060, L3100.5170, L3300.1750, L3100.5400, L3100.5125, L501.9985, L3100.5310 #### [facility] [address] [place], [address] Urea nitrogen [Mass/Vol] 15 mg/dL Normal 7-18 [facility] Comment on above: Performed By: #### L 3100.5060, L3100.5170, L3300.1750, L3100.5400, L3100.5125, L501.9985, L3100.5310 #### [facility] [address] [place], [address] Estimated glomerular filtrat ion rate (GFR) AmericanOrdered By: Arnold Cleveland on 11-16-2024 Estimated GFR (MDRD) Amer 98 mL/min >60 [facility] Comment on above: GFR Calc Glomerular filtration rate ( GFR) estimationOrdered By: Arnold Cleveland on 11-16-2024 Estimated GFR (MDRD) Non-Af Amer 81 mL/min >60 [facility] Comment on above: Non- GFR Calc Glucose measurementOrdered B y: Arnold Cleveland on 11-16-2024 Glucose [Mass/Vol] 92 mg/dL 74-106 [facility] High density lipoprotein (HD L) measurementOrdered By: Arnold Cleveland on 11-16-2024 Cholesterol in HDL [Mass/Vol] 74 mg/dL >40 [facility] Comment on above: The drugs N-Acetylcy steine and Metamizole may falsely depress this assay. Reference Range HDL <40 mg/dL Low HDL Cholesterol HDL >or= 60 mg/dL High HDL Cholesterol Laboratory - Chemistry and C hemistry - challengeOrdered By: Arnold Cleveland on 11-16-2024 AST [Catalytic activity/Vol] 22 U/L 15-37 [facility] Lipid Profileon 11-16-2024 Cholesterol [Mass/Vol] 255 mg/dL High 200 [facility] Comment on above: Result Comment: <200 mg/dL Desirable 200-240 mg/dL Borderline >240 mg/dL High Risk Performed By: #### L 3100.5060, L3100.5170, L3300.1750, L3100.5400, L3100.5125, L501.9985, L3100.5310 #### [facility] Laboratory [address] [place], [address] Cholesterol in HDL [Mass/Vol] 74 mg/dL Normal [facility] Comment on above: Result Comment: The drugs N-Acetylcysteine and Metamizole may falsely depress this assay. Reference Range HDL <40 mg/dL Low HDL Cholesterol HDL >or= 60 mg/dL High HDL Cholesterol Performed By: #### L 3100.5060, L3100.5170, L3300.1750, L3100.5400, L3100.5125, L501.9985, L3100.5310 #### [facility] [address] [place], [address] Cholesterol in LDL [Mass/Vol] 160 mg/dL High 0-130 [facility] Comment on above: Performed By: #### L 3100.5060, L3100.5170, L3300.1750, L3100.5400, L3100.5125, L501.9985, L3100.5310 #### [facility] Laboratory [address] [place], [place], [address] Cholesterol in VLDL [Mass/Vol] 21 mg/dL Normal 5-40 [facility] Comment on above: Performed By: #### L 3100.5060, L3100.5170, L3300.1750, L3100.5400, L3100.5125, L501.9985, L3100.5310 #### [facility] [address] [place], [place], [id number] (297) Triglyceride [Mass/Vol] 107 mg/dL Normal [facility] Comment on above: Result Comment: The drugs N-Acetylcysteine and Metamizole may falsely depress this assay. Serum Triglycerides Reference Interval Normal <150 mg/dL Borderline high 150 - 199 mg/dL High 200 - 499 mg/dL Very High > or = 500 mg/dL Performed By: #### L 3100.5060, L3100.5170, L3300.1750, L3100.5400, L3100.5125, L501.9985, L3100.5310 #### [facility] [address] [place], [place], [id number] Low density lipoprotein (LDL ) cholesterol measurementOrdered By: Arnold Cleveland on 11-16-2024 Cholesterol in LDL [Mass/Vol] 160 mg/dL High 0-130 [facility] Potassium measurementOrdered By: Arnold Cleveland on 11-16-2024 Potassium [Moles/Vol] 4.3 mmol/L 3.5-5.1 [facility] Serum anion gap measurementO rdered By: Arnold Celveland on 11-16-2024 Anion gap [Moles/Vol] 3 mmol/L Low 5-15 [facility] Serum globulin measurementOr dered By: Arnold Cleveland on 11-16-2024 Globulin (S) [Mass/Vol] 3.5 g/dL 2.2-4.2 [facility] Serum or plasma alanine trevino otransferase (ALT) measurementOrdered By: Arnold Cleveland on 11-16-2024 ALT [Catalytic activity/Vol] 30 U/L 13-56 [facility] Serum or plasma albumin adelita urement (mass/volume)Ordered By: Arnold Cleveland on 11-16-2024 Albumin [Mass/Vol] 3.5 g/dL 3.2-5.0 [facility] Serum or plasma alkaline roshan sphatase measurementOrdered By: Arnold Cleveland on 11-16-2024 ALP [Catalytic activity/Vol] 79 U/L 45-117 [facility] Serum or plasma calcium adelita urement (mass/volume)Ordered By: Arnold Cleveland on 11-16-2024 Calcium [Mass/Vol] 8.8 mg/dL 8.5-10.1 [facility] Serum or plasma cholesterol measurement (mass/volume)Ordered By: Arnold Cleveland on 11-16-2024 Cholesterol [Mass/Vol] 255 mg/dL High <200 [facility] Comment on above: <200 mg/dL Desirable 200-240 mg/dL Borderline >240 mg/dL High Risk Serum or plasma creatinine m easurement (mass/volume)Ordered By: Arnold Cleveland on 11-16-2024 Creatinine [Mass/Vol] 0.81 mg/dL 0.55-1.02 [facility] Comment on above: The validity of the calculated GFR & GFRAA in patients over 70 years has not been determined. Clinical correlation is essential. Serum or plasma urea nitroge n measurement (mass/volume)Ordered By: Arnold Cleveland on 11-16-2024 Urea nitrogen [Mass/Vol] 15 mg/dL 7-18 [facility] Sodium levelOrdered By: Mark Cleveland on 11-16-2024 Sodium [Moles/Vol] 137 mmol/L 136-145 [facility] Total proteinOrdered By: Floyd Cleveland on 11-16-2024 Protein [Mass/Vol] 7.0 g/dL 6.4-8.2 [facility] Triglycerides measurementOrd ered By: Arnold Cleveland on 11-16-2024 Triglyceride [Mass/Vol] 107 mg/dL <199 [facility] Comment on above: The drugs N-Acetylcy steine and Metamizole may falsely depress this assay.Serum Triglycerides Reference Interval Normal <150 mg/dL Borderline high 150 - 199 mg/dL High 200 - 499 mg/dL Very High > or = 500 mg/dL Very low density lipoprotein (VLDL) cholesterol measurementOrdered By: Arnold Cleveland on 11-16-2024 VLDL Cholesterol 21 mg/dL 5-40 [facility] Vitamin D,25 Hydroxyon 11-16 Vitamin D 25-OH 46.5 ng/mL Normal [facility] Comment on above: Result Comment: Bernice min D 25(OH) Status Range Deficiency <20 ng/mL (50nmol/L) Insufficiency 20 - 30 ng/mL (50 - 75 nmol/L) Sufficiency 30 - 100 ng/mL (75 - 250 nmol/L) Toxicity >100 ng/mL (>250 nmol/L) Performed By: #### L 3100.5060, L3100.5170, L3300.1750, L3100.5400, L3100.5125, L501.9985, L3100.5310 #### [facility] Laboratory [address] [place], [address] LABORATORYOrdered By: Carroll Sanz on 11-14-2024 HPV Interp High Risk HPV Typing : NEGATIVEHPV types 16, 18, 31, 33, 35, 39, 45, 51, 52, 56, 58, 59, 66 and 68 DNA wereundetectable or below the pre-set threshold.The josh High-Risk HPV DNA Test is not intended for use as a screening device forPap normal women under age 30 and is not intended to substitute for regular Papscreening.The josh High-Risk HPV DNA Test is designed to augment existing methods for thedetection of cervical disease and should be used in conjunction with clinicalinformation derived from other diagnostic and screening tests, physical examinationsand full medical history in accordance with appropriate patient managementprocedures.NOTE: A negative result does not preclude the presence of HPV infection because resultsdepend on adequate specimen collection, absence of inhibitors and sufficientDNA to be detected. Normal See Interp HPVN Auto Viro/Sero SS Specimen source Nom (Unsp spec) Cervix (11/14/24 9:37 AM) Normal AH Auto Viro/Sero SS Sex Hormone-binding Globulin on 11-02-2024 SHBG 80.0 nmol/L Normal 24.6-122.0 [facility] Comment on above: Order Comment: N Result Comment: Perf ormed at: [facility] [address] [id number] Cylinder Machine Operator: Roland Hedrick PhD, Phone: [phone] Performed at: [facility] [address] [id number] Cylinder Machine Operator: William Gonzalez MD, Phone: [phone] Performed By: #### L 3100.5060, L3100.5170, L3300.1750, L3100.5400, L3100.5125, L501.9985, L3100.5310 #### [facility] [address] [place], [place], [phone] ([phone]) Testosterone, Total / Freeon 11-02-2024 TESTOSTER,FREE 0.21 ng/dL Normal 0.10-0.85 [facility] Comment on above: Order Comment: N Performed By: #### L 3100.5060, L3100.5170, L3300.1750, L3100.5400, L3100.5125, L501.9985, L3100.5310 #### [facility] Laboratory [address] [place], [place], [id number] (323) TESTOSTER,TOTAL 10 ng/dL Normal 4-50 [facility] Comment on above: Order Comment: N Performed By: #### L 3100.5060, L3100.5170, L3300.1750, L3100.5400, L3100.5125, L501.9985, L3100.5310 #### [facility] Laboratory [address] [place], [place], [id number] (887) TESTOSTERONE,%F 2.14 Normal 0.50-2.80 [facility] Comment on above: Order Comment: N Performed By: #### L 3100.5060, L3100.5170, L3300.1750, L3100.5400, L3100.5125, L501.9985, L3100.5310 #### [facility] [address] [place], [address] Estradiolon 10-25-2024 ESTRADIOL 128.4 pg/mL Normal [facility] Comment on above: Result Comment: NORM AL REFERENCE RANGES FEMALE FOLLICULAR 21.4 - 164.8 pg/mL MID-CYCLE PEAK 49.9 - 367.2 pg/mL LUTEAL 40.2 - 259.0 pg/mL POST-MENOPAUSAL ON MHT <11.0 - 462.1 pg/mL NOT ON MHT <11.0 - 58.3 pg/mL MALE <11.0 - 52.5 pg/mL NOTE: [facility] HAS CONFIRMED THE DRUG FULVETRANT (FASLODEX) MAY CAUSE FALSELY ELEVATED ESTRADIOL RESULTS WHEN USING THIS TEST METHOD. IF PATIENT IS TAKING FULVESTRANT AN ALTERNATIVE METHOD SHOULD BE USED TO DETERMINE ESTRADIOL CONCENTRATION. Performed By: #### L 3100.5060, L3100.5170, L3300.1750, L3100.5400, L3100.5125, L501.9985, L3100.5310 #### [facility] [address] [facility] [address] [place], [place], [id number] Thyroid Stim Hormone (TSH)on 10-19-2024 TSH 3.020 uIU/mL Normal 0.358-3.740 [facility] Comment on above: Performed By: #### L 3100.5060, L3100.5170, L3300.1750, L3100.5400, L3100.5125, L501.9985, L3100.5310 #### [facility] [address] [place], [place], [id number] Spine Lumbar (Routine)on Spine Lumbar (Routine) [facility] Imaging Services [address] [place], [place] [id number] Spine Lumbar (Routine) MR#: [id number] Acct: [id number] Name: SHARON WAYNE Rep #: [id number] : 1980 F 44 From: Wayne Salazar MD PCP: Dr. Arnold Cleveland, DO Status: [facility] CLI Study: Spine Lumbar (Routine) Date of Exam: 07/27/24 Exam# [id number] Ordering Dr: Gypsy Greenberg :[id number] STUDY: MRI LUMBAR SPINE WITHOUT CONTRAST REASON FOR EXAM: Female, 44 years old. pain across lower back, doesn''t radiate TECHNIQUE: Standardized fat and water weighted pulse sequences were obtained in the sagittal and axial planes. COMPARISON: X-ray 06/29/2024 FINDINGS: T12-L1: Normal endplates. Normal disc height, hydration and morphology. Normal bilateral facet joints. Normal central canal and bilateral lateral recesses. Normal bilateral intervertebral neural foramina. Normal lumbar lordosis. There is no substantial scoliosis. Normal conus medullaris that terminates at the L1/L2. L1-2: Normal endplates. Normal disc height, hydration and morphology. Normal bilateral facet joints. Normal central canal and bilateral lateral recesses. Normal bilateral intervertebral neural foramina. L2-3: Disc desiccation but no disc protrusion, spinal stenosis, or neural foraminal stenosis. L3-4: Disc desiccation with a central annular tear but no disc protrusion, spinal stenosis, or neural foraminal stenosis. L4-5: Mild broad disc protrusion produces mild spinal stenosis and mild bilateral neural foraminal stenosis. L5-S1: Mild broad disc protrusion produces mild spinal stenosis and mild bilateral neural foraminal stenosis. Normal visualized sacral ala. Normal visualized paraspinous soft tissue structures. MRI/Spine Lumbar (Routine) IMPRESSION: Multilevel degenerative changes, as described above. Electronically Signed: Wayne Salazar MD at 23:23 EDT , CC: MIGUEL Kovacs; Dr. Arnold Cleveland DO Safety Physician: Signed Normal [facility] L/S Spine Min 4 Viewson 06-09 L/S Spine Min 4 Views [facility] [address] [place] [address] L/S Spine Min 4 Views MR#: [id number] Acct: [id number] Name: SHARON WAYNE Rep #: [id number] : 1980 F 44 From: Wayne Salazar MD PCP: Dr. Arnold Cleveland DO Status: DEP AMB Study: L/S Spine Min 4 Views Date of Exam: 06/29/24 Exam# [id number] Ordering Dr: Gypsy Greenberg :[id number] STUDY: X-RAY - LUMBAR SPINE REASON FOR EXAM: Female, 44 years old. low back pain -- please do upright AP, LAT, Flex, Ext TECHNIQUE: 4 view(s) of the lumbar spine were obtained. COMPARISON: 2022 FINDINGS: Normal lumbar lordosis. There is no substantial scoliosis. There is a normal alignment of the vertebrae. No subluxation on the flexion-extension views to suggest instability. There is multilevel endplate spondylosis of the lumbar vertebrae. Normal disc space heights. The soft tissue structures are unremarkable. RAD/L/S Spine Min 4 Views IMPRESSION: Mild degenerative disc disease. MRI may be useful. No instability. Electronically Signed: Wayne Salazar MD at 14:02 EDT , CC: MIGUEL Kovacs; Dr. Arnold Cleveland DO Safety Physician: Signed Normal [facility] Orthopedic Visit Reporton Orthopedic Visit Report [facility] [address] [place] [address] OFFICE VISIT Date of Service: 06/29/24 MR#: [id number] Acct: [id number] Name: SHARON WAYNE Rep #: [id number] : 1980 Provider: MIGUEL Kovacs Age/Sex: 44/F Location: [facility] [place] Status: Signed Intake Vital Signs 06/27/24 09:04 Height 5 ft 7 in Intake Visit Reasons: LUMBAR SPINE Accompanied by: Is patient in pain?: Yes Pain scale (1-10): 2 Allergies cephalexin Allergy (Verified 06/29/24 08:15) Hives Cephalosporins Allergy (Verified 06/29/24 08:15) Hives Seasonal Allergies: Uncoded Allergy (Verified 06/29/24 08:15) Cough, Drainage Medications ???Medication ???Instructions ???Recorded ???Confirmed ???Type hydrocodone-acetaminophen 5-325mg 1 tab PO Q4H PRN pain 5 days #20 05/16/22 06/29/24 Rx 5mg-325mg tabs levothyroxine 50 mcg tablet 1 tab PO DAILY 05/16/22 06/29/24 History bupropion HCl 200 mg tablet,12 hr 200 mg PO BID 11/03/23 06/29/24 History sustained-release cyanocobalamin (vitamin B-12) 50 50 mcg PO DAILY 11/03/23 06/29/24 History mcg tablet (Vitamin B-12) glucosamine 375 gr-ogapttzuc-hho 1 tab PO DAILY 11/03/23 06/29/24 History no1 500 mg-C 15 mg-mitchell 0.5 mg tablet magnesium oxide 250 mg PO DAILY 11/03/23 06/29/24 History naproxen 500 mg-esomeprazole 20 mg 1 tab PO BID PRN pain 11/03/23 06/29/24 History tablet,immediate and delay release (Vimovo) nitrofurantoin macrocrystal 50 mg 50 mg PO DAILY PRN After 11/03/23 06/29/24 History capsule [place] cholecalciferol (vitamin D3) 25 25 mcg PO DAILY 11/10/23 06/29/24 History mcg (1,000 unit) capsule (Vitamin D3) cyclobenzaprine 5 mg tablet 5 mg PO TID PRN muscle spasm 3 06/27/24 06/29/24 Rx days #9 tabs oxycodone 5 mg tablet 5 mg PO Q6H PRN pain 3 days #12 06/27/24 06/29/24 Rx tabs PFSH Medical History Thyroid disease High cholesterol Non-smoker Post-menopausal Hx of colonic polyps Hyperlipidemia Hypothyroid Anxiety Depression Surgical History History of wisdom tooth extraction Hx of tonsillectomy History of esophagogastroduodenoscopy (EGD) History of endometrial ablation History of hysteroscopy Hx of colonoscopy Family History Grandmother Breast cancer Social History Smoking Status: Never smoker HPI LUMBAR SPINE Details: This documentation accurately reflects the service provided and the decisions made by me, MIGUEL Kovacs 06/29/24 0813. Part of today???s visit was documented by Sia ACOSTA , acting as scribe. SHARON WAYNE is a 44 year old F here today for Lumbar pain. Patient states her back has bothered her for about 20 years but the acute back pain happen Tues morning for 10/10 pain. Patient states the pain goes back in forth for her lower back. Patient states typically it is right sided but it has been creeping over to the left. Patient denies any pain or numbness or tinging that goes down her legs. Patient states the pain stays in her lower back. Patient hasn't had injections in her back. Patient has done physical therapy but not recently. Patient has tried ice and heat and that helps sometimes. Patient states it numbs it. Patient takes Aleve back and body 3 pills, then she will wait several hours and then she will take Hydrocodone that she has and if its really bad still she will take a muscle relaxer at night. This seems to help but she is still using the same medications from 2 years ago. Coming back in shorter amounts of time. Pain started in her 20s when she was lifting about 20 pounds at that time repeatedly. She had an MRI about 6 years ago. Her pain has not affected her walking. Last seen PT 2 years ago and did not help. She does core exercises when she is able on her own. She has seen Dr. Nunez two years ago, and says since her current episode of pain, her pain has been gone but wants to seek a solution to prevent this pain from coming back as they come more frequent. Ortho Exam General General: Yes no acute distress Neurologic: Yes alert and Yes oriented x3 Spine SPINE TESTING CERVICAL THORACIC LUMBAR Musculoskeletal Strength 0=absent - 5=normal Details: Neurological exam of the lower extremities shows 5x5 power in all muscles. Patient with pain with bilateral leg extension. Normal sensations across all dermatomes. No hyperreflexia. No midline t enderness. Mild paraspinal tenderness on R. Hardeep/figure 4 test positive on Left. Gaenslen's negative. Coding Level of Care Code Established Pt Off vis,est,level 3 Patient Type Established Diagnoses De (more content not included)... Normal [facility] Emergency Department Summary on 06-27-2024 Emergency Department Summary [facility] Medical Records Department [address] [place] [address] Emergency Department Summary 06/27/24 MR#: [id number] Acct: [id number] Name: SHARON WAYNE Rep #: [id number] : 1980 44 From: Werner Lazo DO PCP: Dr. Arnold Cleveland, Status:PRE ER Location: ED HPI History of Present Illness Chief Complaint: Back [facility] Medical History Thyroid disease High cholesterol Non-smoker Post-menopausal Hx of colonic polyps Hyperlipidemia Hypothyroid Anxiety Depression Home Medications ???Medication ???Instructions ???Recorded ???Last Taken ???Type hydrocodone-acetaminophen 5-325mg 1 tab PO Q4H PRN pain 5 days #20 05/16/22 Unknown Rx 5mg-325mg tabs levothyroxine 50 mcg tablet 1 tab PO DAILY 05/16/22 Unknown History bupropion HCl 200 mg tablet,12 hr 200 mg PO BID 11/03/23 Unknown History sustained-release cyanocobalamin (vitamin B-12) 50 50 mcg PO DAILY 11/03/23 Unknown History mcg tablet (Vitamin B-12) glucosamine 375 [id number] 1 tab PO DAILY 11/03/23 Unknown History no1 500 mg-C 15 mg-mitchell 0.5 mg tablet magnesium oxide 250 mg PO DAILY 11/03/23 Unknown History naproxen 500 mg-esomeprazole 20 mg 1 tab PO BID PRN pain 11/03/23 Unknown History tablet,immediate and delay release (Vimovo) nitrofurantoin macrocrystal 50 mg 50 mg PO DAILY PRN After 11/03/23 Unknown History capsule [place] cholecalciferol (vitamin D3) 25 25 mcg PO DAILY 11/10/23 Unknown History mcg (1,000 unit) capsule (Vitamin D3) Allergy/AdvReac Type Severity Reaction Status Date / Time cephalexin Allergy Hives Verified 11/10/23 14:03 Cephalosporins Allergy Hives Verified 11/10/23 14:03 Seasonal Allergies: Uncoded Allergy Cough, Verified 11/10/23 14:03 Drainage Family History Grandmother Breast cancer Surgical History History of wisdom tooth extraction Hx of tonsillectomy History of esophagogastroduodenoscopy (EGD) History of endometrial ablation History of hysteroscopy Hx of colonoscopy Social History Smoking Status: Never smoker EXAM Physical Exam Const Vital Signs: 06/27/24 09:04 Temperature 97.4 F L Temperature Source Temporal Pulse Rate 69 Respiratory Rate 16 Blood Pressure 125/115 H Blood Pressure Mean 118 Pulse Ox 98 Oxygen Delivery Method Room Air [facility] MDM Narrative Medical decision making narrative: HISTORY OF PRESENT ILLNESS: 44-year-old female presents with chronic back pain. No she is having difficulty walking secondary to pain. No she took 3 Aleve this morning. She further states REVIEW OF SYSTEMS: Pertinent positives: Back pain Pertinent negatives: Bowel or bladder incontinence, urinary tension, loss of movement or sensation in her legs, saddle anesthesia, urinary frequency urgency dysuria PHYSICAL EXAM: Nursing triage notes reviewed, Vital signs reviewed Constitutional: please see mdm Abdomen: Soft, there is no tenderness, rigidity, rebound or guarding, no obvious peritoneal signs, no palpable pulsatile abdominal masses, no auscultated abdominal bruit : No CVAT Back: No midline step-offs deformities to the T or L-spine Extremities: No edema Neuro: Intact sensation L1-S1 dermatomal distributions. Intact 5/5 strength in hip flexion (T12- L3). Knee extension (L2-L4). Ankle dorsiflexion (L4-L5). Ankle plantar flexion (S1). Great toe extension (L5). 2+ patellar and Achilles DTRs. Skin: No rash or lesions noted MEDICAL DECISION MAKING: Chief Complaint: Back pain External records reviewed: Imaging reviewed: X-ray of the lumbar spine from 2021 showed mild degenerative bone changes. No evidence of lumbar spine fracture or spondylolisthesis Factors affecting care: history of degenerative disc disease at L5-S1 Social determinants of health: none History obtained from others: none Consults: none [facility] Narrative: Patient was initially hemodynamically stable, afebrile and nontoxic-appearing. Exam without focal neurologic deficits. No red flags by history. The patient presented complaining of back pain. No trauma endorsed to suggest fracture or dislocation. There was no evidence to support genitourinary etiology. There is also no evidence to suggest vascular pathology such as AAA dissection. No fevers or other evidence to suspect infectious processes, abscess, osteomyelitis etc. The patient???s neurological exam is normal with normal motor and sensory. There is no saddle paresthesias reported and no bowel or bladder incontinence or retention. I suspect the pain is mechanical in nature. I gave 4 mg IM m (more content not included)... [facility] Office Visit (UCWSTR ) SHARON WAYNE ([id number]) 1980 F Date Time Provider Department 06/16/24 7:45 AM BARRINGTON MONROY [facility] During your visit today, we recorded the following information about you: Temperature Pulse Respiration Blood pressure 97.3 degrees 68/minute 18/minute 108/78 Weight 81.3 kg Barrington Monroy APRN.CLEAN UP HELPER BANQUET 06/16/2024 9:38 AM Signed Subjective HPI HPI Sharon Wayne is a 44 year old female who presents today for CC of itchy rash all over. This started 3 days ago. Has tried otc medication for relief. Symptoms are worsened by nothing. Risk factors recently pulling weeds. .Patient presents with: Rash: Poison simon or sumac x3 days No past medical history on file. No past surgical history on file. ALLERGIES Cephalosporins MEDICATIONS WELLBUTRIN SR 200 mg 12 hr tablet Take 1 tablet by mouth two times a day. levothyroxine (SYNTHROID) 50 mcg tablet Take 1 tablet by mouth once daily. Estradiol 0.0375 mg/24 hr Apply 1 patch twice a week by transdermal route for 28 days. progesterone micronized (PROMETRIUM) 100 mg capsule Take 1 capsule every day by oral route at bedtime for 30 days. nitrofurantoin monohydrate and macrocrystal (MACROBID) 100 mg capsule No family history on file. Social History Tobacco Use Smoking status: Never Smokeless tobacco: Never Review of Systems Constitutional: Negative for chills and fever. Skin: Positive for itching and rash (Positive for clear, watery drainage. Denies warmth and purulent drainage.). Objective Blood pressure 108/78, pulse 68, temperature 36.3 ?C (97.3 ?F), resp. rate 18, weight 81.3 kg (179 lb 3.7 oz), SpO2 99%. Physical Exam Constitutional: General: She is not in acute distress. Appearance: She is not toxic-appearing or diaphoretic. HENT: Head: Normocephalic and atraumatic. Skin: General: Skin is warm and dry. Findings: Rash present. Rash is vesicular (distribution linear ). Neurological: Mental Status: She is alert and oriented to person, place, and time. ASSESSMENT/PLAN: 1. Rhus dermatitis - ICD9: 692.6, ICD10: L25.5 - Oral Steriod tx -Prednisone taper - Topical steriod tx with Rx for steriod cream/ointment- see orders - discussed skin care of rash - follow up if symptoms persist or worsen. - PREDNISONE 10 MG TABLET - TRIAMCINOLONE ACETONIDE 0.1 % TOPICAL CREAM Barrington Monroy APRN.CLEAN UP HELPER BANQUET Allergies As of Date: 06/16/2024 Noted Allergy Reaction CEPHALOSPORINS 06/16/2024 4 - Hives Date Reviewed: Never Reviewed Reason for Visit: Rash [1087] Cmt: Poison simon or sumac x3 days Primary Visit Diagnosis:Rhus dermatitis [L25.5] Order(s):predniSONE (DELTASONE) 10 mg tabletTake 4 tabs daily x5 days, then 2 tabs daily for 5 days, then 1 tab daily for 5 days.Disp: 35 tabletRfl: 0 triamcinolone acetonide (KENALOG) 0.1 % creamApply 1 application to affected area three times a day for 10 days. Apply sparingly to area for rash/itching.Disp: 80 gRfl: 0 Prescriptions as of 06/16/2024 - WELLBUTRIN SR 200 mg 12 hr tablet Take 1 tablet by mouth two times a day. - levothyroxine (SYNTHROID) 50 mcg tablet Take 1 tablet by mouth once daily. - Estradiol 0.0375 mg/24 hr Apply 1 patch twice a week by transdermal route for 28 days. - progesterone micronized (PROMETRIUM) 100 mg capsule Take 1 capsule every day by oral route at bedtime for 30 days. - nitrofurantoin monohydrate and macrocrystal (MACROBID) 100 mg capsule - predniSONE (DELTASONE) 10 mg tablet Take 4 tabs daily x5 days, then 2 tabs daily for 5 days, then 1 tab daily for 5 days. - triamcinolone acetonide (KENALOG) 0.1 % cream Apply 1 application to affected area three times a day for 10 days. Apply sparingly to area for rash/itching. Problem List As Of Date: 06/16/2024 (None) Prescriptions ordered this encounter Disp Refills Start End PREDNISONE 10 MG TABLET 35 t* 0 06/16/2024 07/01/2024 Sig: Take 4 tabs daily x5 days, then 2 tabs daily for 5 days, then 1 tab daily for 5 days. TRIAMCINOLONE ACETONIDE 0.1 % TOPICA* 80 g 0 06/16/2024 06/26/2024 Route: TOPICAL Sig: Apply 1 application to affected area three times a day for 10 days. Apply sparingly to area for rash/itching. Encounter Status:Closed by BARRINGTON MONROY on 06/16/24 Normal [facility] PROLACTIN 4465on 06-12-2024 PROLACTIN 20.6 ng/mL Normal 4.8-33.4 [facility] Comment on above: Order Comment: N UNK Performed By: #### L 3100.5060, L3100.5170, L3300.1750, L3100.5400, L3100.5125, L501.9985, L3100.5310 #### [facility] [address] [place], [place], [id number] Sex Hormone-binding Globulin on 06-12-2024 SHBG 77.3 nmol/L Normal 24.6-122.0 [facility] Comment on above: Order Comment: N UNK Result Comment: Perf ormed at: [facility] [address] [id number] Cylinder Machine Operator: Roland Hedrick PhD, Phone: [phone] Performed at: [facility] [address] [id number] Cylinder Machine Operator: William Gonzalez MD, Phone: [phone] Performed By: #### L 3100.5060, L3100.5170, L3300.1750, L3100.5400, L3100.5125, L501.9985, L3100.5310 #### [facility] [address] [place], [place], [id number] Testosterone, Total / Freeon 06-12-2024 TESTOSTER,FREE 3.19 ng/dL Abnormal 0.10-0.85 [facility] Comment on above: Order Comment: N UNK Performed By: #### L 3100.5060, L3100.5170, L3300.1750, L3100.5400, L3100.5125, L501.9985, L3100.5310 #### [facility] [address] [place], [place], [id number] TESTOSTERONE, T 140 ng/dL High 4-50 [facility] Comment on above: Order Comment: N UNK Performed By: #### L 3100.5060, L3100.5170, L3300.1750, L3100.5400, L3100.5125, L501.9985, L3100.5310 #### [facility] [address] [place], [place], [id number] (051) TESTOSTERONE,%F 2.28 Normal 0.50-2.80 [facility] Comment on above: Order Comment: N UNK Performed By: #### L 3100.5060, L3100.5170, L3300.1750, L3100.5400, L3100.5125, L501.9985, L3100.5310 #### [facility] [address] [place], [address] (047) Estradiolon 2024 ESTRADIOL 35.4 pg/mL Normal [facility] Comment on above: Result Comment: NORM AL REFERENCE RANGES FEMALE FOLLICULAR 21.4 - 164.8 pg/mL MID-CYCLE PEAK 49.9 - 367.2 pg/mL LUTEAL 40.2 - 259.0 pg/mL POST-MENOPAUSAL ON MHT <11.0 - 462.1 pg/mL NOT ON MHT <11.0 - 58.3 pg/mL MALE <11.0 - 52.5 pg/mL NOTE: [facility] HAS CONFIRMED THE DRUG FULVETRANT (FASLODEX) MAY CAUSE FALSELY ELEVATED ESTRADIOL RESULTS WHEN USING THIS TEST METHOD. IF PATIENT IS TAKING FULVESTRANT AN ALTERNATIVE METHOD SHOULD BE USED TO DETERMINE ESTRADIOL CONCENTRATION. Performed By: #### L 3100.5060, L3100.5170, L3300.1750, L3100.5400, L3100.5125, L501.9985, L3100.5310 #### [facility] [address] [place], [address] (790) Follicle Stimulating Hormone on 2024 FSH 72.9 mIU/mL Normal [facility] Comment on above: Result Comment: NORMAL REFERENCE RANGES FEMALE FOLLICULAR 2.3 - 12.6 mIU/mL MID-CYCLE PEAK 5.2 - 17.5 mIU/mL LUTEAL 1.7 - 12.9 mIU/mL POST-MENOPAUSAL ON MHT 5.9 - 72.8 mIU/mL NOT ON MHT 12.7 - 132.2 mlU/mL MALE 0.7 - 10.8 mIU/mL Performed By: #### L 3100.5060, L3100.5170, L3300.1750, L3100.5400, L3100.5125, L501.9985, L3100.5310 #### [facility] [address] [place], [place], [id number] Hemoglobin A1con 2024 HbA1c (Bld) [Mass fraction] 5.2 % Normal 3.8-5.6 [facility] Comment on above: Result Comment: Norm al < 5.7 % Prediabetic 5.7 - 6.4 % Diabetic >or= 6.5 % Please note range changes. Performed By: #### L 3100.5060, L3100.5170, L3300.1750, L3100.5400, L3100.5125, L501.9985, L3100.5310 #### [facility] [address] [place], [address] Luteinizing Hormoneon 2023 LH 52.0 mIU/mL Normal [facility] Comment on above: Result Comment: NORMAL REFERENCE RANGES FEMALE FOLLICULAR 1.9 - 26.2 mIU/mL MID-CYCLE PEAK 22.8 - 76.1 mIU/mL LUTEAL 0.6 - 16.6 mIU/mL POST-MENOPAUSAL ON MHT 1.1 - 52.4 mIU/mL NOT ON MHT 8.6 - 61.8 mIU/mL MALE 1.2 - 10.6 mIU/mL Performed By: #### L 3100.5060, L3100.5170, L3300.1750, L3100.5400, L3100.5125, L501.9985, L3100.5310 #### [facility] [address] [place], [place], [id number] FEon 12-22-2023 Iron [Mass/Vol] 125 ug/dL Normal 50-170 [facility] ([place]) Comment on above: Performed By: #### F E #### [address] [address] [place] MAMMOGRAM SCREENING BILAT ERAL W/TOMOon 11-18-2023 MA MAMMOGRAM SCREENING BILATERAL W/ARTURO ADDENDUM AMENDMENT: 11/18/2023 JASBIR MCNEAL MD ADDENDUM: No mammographic evidence of malignancy. Continued screening with annual mammograms is recommended. BIRADS: MAMMOGRAM BI-RADS: 1: Negative RECALL: 1 year screening RECALL TYPE: mammo LETTER SENT: Normal BI-RADS 1 and 2 Interpreted by: Jasbir Mcneal MD Preliminary Report By: Jasbir Mcneal MD Electronically signed By Jasbir Mcneal MD Dictated Date: 11/18/2023 8:52:37 PM Prelim Date: 11/18/2023 8:54:52 PM Sign Date: 11/18/2023 8:54:52 PM Ordering Provider: ARNOLD CLEVELAND Amended BI-RADS: 1 Negative ORIGINAL FROM: [address] [id number] PROCEDURE FOR: SHARON WAYNE [address] [place] [address] Home: PID#: [id number] Exam#: [id number] : 1980 Age: 43 TO: ARNOLD CLEVELAND DO [address] [id number] Fax: NO FAX EXAMINATION: SCREENING DIGITAL BILATERAL MAMMOGRAM WITH TOMOSYNTHESIS, 11/15/2023 7:27 am TECHNIQUE: Screening mammography of the bilateral breasts was performed with tomosynthesis. 2D standard and 3D tomosynthesis combination imaging performed through both breasts in the MLO and CC projection. Computer aided detection was utilized in the interpretation of this exam. COMPARISON: November 09, 2022, HISTORY: Breast cancer screening. FINDINGS: BREAST DENSITY: Scattered fibroglandular tissue There are no significant masses or calcifications. IMPRESSION: No mammographic evidence of malignancy. Continued screening with annual mammograms is recommended. Farhad Pond risk calculations, generated with the history provided, report this patient's 10 year risk and lifetime risk for developing breast cancer at 1.8% and 10%, respectively. Based on this assessment tool, if the patient's calculated lifetime risk is below 20%, then the patient is considered at average risk for developing breast cancer. If the patient's calculated lifetime risk is at or above 20%, then the patient is considered high risk for developing breast cancer and may be a candidate for supplemental breast MRI screening in addition to annual mammographic screening per the [place] [employer]. BIRADS: MAMMOGRAM BI-RADS: 1: Negative RECALL: 1 year screening RECALL TYPE: mammo LETTER SENT: Normal BI-RADS 1 and 2 Interpreted by: Aliya Sewell Preliminary Report By: Aliya Sewell Electronically signed By Aliya Sewell Dictated Date: 11/15/2023 8:09:25 AM Prelim Date: 11/15/2023 8:17:58 AM Sign Date: 11/15/2023 8:17:58 AM Ordering Provider: ARNOLD CLEVELAND Senior Technical Manager: CHARLENE MARX RT(R)(M)(CT) PEDICURIST letter sent: Normal BI-RADS 1 and 2 Mammogram BI-RADS: 1 Negative Normal [facility] ([place]) No Panel InformationOrdered By: Charlene Mitchell on 10-06-2023 Thyroid Stimulating Hormone (TSH) 2.05 uIU/mL 0.358-3.74 [facility] Basophil percentageOrdered B y: Arnold Cleveland on 08-12-2023 Bilirubin [Mass/Vol] 0.40 mg/dL 0.20-1.00 [facility] Comment on above: For patients on eltr ombopag therapy, use of Dimension Wheeler TBIL is not recommended. Chloride [Moles/Vol] 111 mmol/L 98-107 [facility] Cholesterol [Mass/Vol] 214 mg/dL <200 [facility] Comment on above: <200 mg/dL Desirable 200-240 mg/dL Borderline >240 mg/dL High Risk Glucose [Mass/Vol] 102 mg/dL 74-106 [facility] Comment on above: Fasting Glucose resu lt from 100 to 125 mg/dL suggests IMPAIRED HOMEOSTASIS per A.D.A. criteria. Potassium [Moles/Vol] 4.4 mmol/L 3.5-5.1 [facility] Protein [Mass/Vol] 6.8 g/dL 6.4-8.2 [facility] Sodium [Moles/Vol] 140 mmol/L 136-145 [facility] Triglyceride [Mass/Vol] 103 mg/dL <199 [facility] Comment on above: The drugs N-Acetylcy steine and Metamizole may falsely depress this assay.Serum Triglycerides Reference Interval Normal <150 mg/dL Borderline high 150 - 199 mg/dL High 200 - 499 mg/dL Very High > or = 500 mg/dL Laboratory - Chemistry and C hemistry - challengeOrdered By: Arnold Cleveland on 08-12-2023 ALP [Catalytic activity/Vol] 62 U/L 45-117 [facility] ALT [Catalytic activity/Vol] 32 U/L 13-56 [facility] CO2 [Moles/Vol] 26.0 mmol/L 21.0-32.0 [facility] Globulin (S) [Mass/Vol] 3.3 g/dL 2.2-4.2 [facility] Urea nitrogen/Creatinine [Mass ratio] 19.9 mg/mg 10-20 [facility] No Panel InformationOrdered By: Arnold Cleveland on 08-12-2023 Estimated GFR (MDRD) Amer 99 mL/min >60 [facility] Comment on above: GFR Calc Estimated GFR (MDRD) Non-Af Amer 82 mL/min >60 [facility] Comment on above: Non- GFR Calc Serum or plasma albumin adelita urement (mass/volume)Ordered By: Arnold Cleveland on 08-12-2023 Albumin [Mass/Vol] 3.5 g/dL 3.2-5.0 [facility] Serum or plasma albumin/glob ulin mass ratioOrdered By: Arnold Cleveland on 08-12-2023 Albumin/Globulin [Mass ratio] 1.1 {ratio} 0.9-2.4 [facility] Serum or plasma calcium adelita urement (mass/volume)Ordered By: Arnold Cleveland on 08-12-2023 Calcium [Mass/Vol] 8.7 mg/dL 8.5-10.1 [facility] Serum or plasma cholesterol in HDL measurement (mass/volume)Ordered By: Arnold Cleveland on 08-12-2023 Cholesterol in HDL [Mass/Vol] 62 mg/dL >40 [facility] Comment on above: The drugs N-Acetylcy steine and Metamizole may falsely depress this assay. Reference Range HDL <40 mg/dL Low HDL Cholesterol HDL >or= 60 mg/dL High HDL Cholesterol Serum or plasma cholesterol in VLDL measurement (mass/volume)Ordered By: Arnold Cleveland on 08-12-2023 Cholesterol in VLDL [Mass/Vol] 21 mg/dL 5-40 [facility] Serum or plasma creatinine m easurement (mass/volume)Ordered By: Arnold Cleveland on 08-12-2023 Creatinine [Mass/Vol] 0.80 mg/dL 0.55-1.02 [facility] Comment on above: The validity of the calculated GFR & GFRAA in patients over 70 years has not been determined. Clinical correlation is essential. Serum or plasma low density lipoprotein (LDL) cholesterol measurement (mass/volume)Ordered By: Arnold Cleveland on 08-12-2023 Cholesterol in LDL [Mass/Vol] 131 mg/dL 0-130 [facility] Serum or plasma urea nitroge n measurement (mass/volume)Ordered By: Arnold Cleveland on 08-12-2023 Urea nitrogen [Mass/Vol] 16 mg/dL 7-18 [facility] Thin prep Papanicolaou smear with manual screeningOrdered By: Arnold Cleveland on 08-12-2023 Thin prep Papanicolaou smear with manual screening 15 U/L 15-37 [facility] Thin prep Papanicolaou smear with manual screening 3 5-15 [facility] Basophil percentageOrdered B y: Dr. Mitchell on 04-08-2023 Chloride [Moles/Vol] 108 mmol/L 98-107 [facility] Glucose [Mass/Vol] 97 mg/dL 74-106 [facility] Potassium [Moles/Vol] 4.3 mmol/L 3.5-5.1 [facility] Sodium [Moles/Vol] 141 mmol/L 136-145 [facility] Laboratory - Chemistry and C hemistry - challengeOrdered By: Dr. Mitchell on 04-08-2023 CO2 [Moles/Vol] 29.0 mmol/L 21.0-32.0 [facility] Urea nitrogen/Creatinine [Mass ratio] 19.0 mg/mg 10-20 [facility] No Panel InformationOrdered By: Dr. Mitchell on 04-08-2023 Estimated GFR (MDRD) Amer 94 mL/min >60 [facility] Comment on above: GFR Calc Estimated GFR (MDRD) Non-Af Amer 78 mL/min >60 [facility] Comment on above: Non- GFR Calc Thyroid Stimulating Hormone (TSH) 1.98 uIU/mL 0.358-3.74 [facility] Serum or plasma calcium adelita urement (mass/volume)Ordered By: Dr. Mitchell on 04-08-2023 Calcium [Mass/Vol] 8.7 mg/dL 8.5-10.1 [facility] Serum or plasma creatinine m easurement (mass/volume)Ordered By: Dr. Mitchell on 04-08-2023 Creatinine [Mass/Vol] 0.84 mg/dL 0.55-1.02 [facility] Comment on above: The validity of the calculated GFR & GFRAA in patients over 70 years has not been determined. Clinical correlation is essential. Serum or plasma urea nitroge n measurement (mass/volume)Ordered By: Dr. Mitchell on 04-08-2023 Urea nitrogen [Mass/Vol] 16 mg/dL 7-18 [facility] Thin prep Papanicolaou smear with manual screeningOrdered By: Dr. Mitchell on 04-08-2023 Thin prep Papanicolaou smear with manual screening 4 5-15 [facility] Laboratory - Chemistry and C hemistry - challengeon 05-05-2022 Cobalamin (Vitamin B12) [Mass/Vol] 1319 pg/mL 211-911 [facility] Work Phone: Free T4 [Mass/Vol] 1.11 ng/dL 0.76-1.46 [facility] Work Phone: No Panel Informationon 05-05 Free Triiodothyronine (T3) pg/dL 2.4 pg/mL 2.18-3.98 [facility] Work Phone: Homocysteine 5.8 umol/L 3.2-10.7 [facility] Work Phone: Thyroid Stimulating Hormone (TSH) 1.09 uIU/mL 0.358-3.74 [facility] Work Phone: Vitamin D 25-Hydroxy 38.6 ng/mL [facility] Work Phone: Comment on above: Vitamin D 25(OH) Sta tus Range Deficiency <20 ng/mL (50nmol/L) Insufficiency 20 - 30 ng/mL (50 - 75 nmol/L) Sufficiency 30 - 100 ng/mL (75 - 250 nmol/L) Toxicity >100 ng/mL (>250 nmol/L) Serum or plasma folate measu rement (mass/volume)on 05-05-2022 Folate [Mass/Vol] 10.80 ng/mL 3.1-55.4 [facility] Work Phone: No Panel Informationon 01-09 Thyroid Stimulating Hormone (TSH) 2.16 uIU/mL 0.358-3.74 [facility] Work Phone: No Panel Informationon 10-29 Culture Urine 50,000 - 100,000 cfu /ml Mixed growth consistent with normal urogenital [place]. [facility] Work Phone: Vital Signs Date Time Vital Sign Value Performing Clinician Darcy vora 06-16-2024 07:48-0400 Body temperature 97.3 [degF] Barrington Monroy APRN.[employer] Work Phone: [facility] 06-16-2024 07:48-0400 Body weight 81.3 kg Barrington Monroy APRN.[employer] Work Phone: [facility] 06-16-2024 07:48-0400 Diastolic blood pressure 78 mm[Hg] Barrington Monroy APRN.[employer] Work Phone: [facility] 06-16-2024 07:48-0400 Heart rate 68 /min Barrington Monroy APRN.[employer] Work Phone: [facility] 06-16-2024 07:48-0400 Respiratory rate 18 /min Barrington Monroy APRN.[employer] Work Phone: [facility] 06-16-2024 07:48-0400 SaO2% (BldA) [Mass fraction] 99 % Barrington Monroy MAR.[employer] Work Phone: [facility] 06-16-2024 07:48-0400 Systolic blood pressure 108 mm[Hg] Barrington King MAR.[employer] Work Phone: [facility] 11-12-2023 09:07-0500 Body temperature 98.2 [degF] Dr. Arnold Cleveland Work Phone: [facility] 11-12-2023 09:07-0500 Diastolic blood pressure 59 mm[Hg] Dr. Arnold Cleveland Work Phone: [facility] 11-12-2023 09:07-0500 Heart rate 59 /min Dr. Arnold Cleveland Work Phone: [facility] 11-12-2023 09:07-0500 Respiratory rate 18 /min Dr. Arnold Cleveland Work Phone: [facility] 11-12-2023 09:07-0500 SaO2% (BldA) [Mass fraction] 98 % Dr. Arnold Cleveland Work Phone: [facility] 11-12-2023 09:07-0500 Systolic blood pressure 87 mm[Hg] Dr. Arnold Cleveland Work Phone: [facility] 11-12-2023 07:51-0500 Body height 170.[address] Arnold Cleveland Work Phone: [facility] 11-12-2023 07:51-0500 Body mass index (BMI) [Ratio] 27.6 kg/m2 Dr. Arnold Cleveland Work Phone: [facility] 11-12-2023 07:51-0500 Body weight [address] Arnold Cleveland Work Phone: [facility] 11-03-2023 11:39-0500 Body mass index (BMI) [Ratio] 26.6 kg/m2 Dr. Arnold Cleveland Work Phone: [facility] 11-03-2023 11:39-0500 Body weight 77.[address] Arnold Cleveland Work Phone: [facility] 05-16-2022 18:52-0400 Respiratory rate 16 /min [facility] Work Phone: 05-16-2022 17:04-0400 Body height 170.18 cm [facility] Work Phone: 05-16-2022 17:04-0400 Body mass index (BMI) [Ratio] 28.1 kg/m2 [facility] Work Phone: 05-16-2022 17:04-0400 Body temperature 97.9 [degF] [facility] Work Phone: 05-16-2022 17:04-0400 Body weight 81.64 kg [facility] Work Phone: 05-16-2022 17:04-0400 Diastolic blood pressure 80 mm[Hg] [facility] Work Phone: 05-16-2022 17:04-0400 Heart rate 95 /min [facility] Work Phone: 05-16-2022 17:04-0400 SaO2% (BldA) [Mass fraction] 98 % [facility] Work Phone: 05-16-2022 17:04-0400 Systolic blood pressure 94 mm[Hg] [facility] Work Phone: Encounters Encounter Date Encounter Type Care Provider Facility Start: 05-18-2025 ambulatory Gasper Bangura :[facility] Start: 04-24-2025 End: 04-24-[address] Arnold Cleveland DO Work Phone: [facility] Work Phone: Start: 04-24-2025 End: 04-24-[address] Charlene Mitchell MD -Laboratory Work Phone: Start: 04-24-2025 End: 04-24-2025 ambulatory Charlene Mitchell Facility:[facility] Start: 02-21-2025 End: 02-21-[address] Arnold Cleveland DO Work Phone: [facility] Work Phone: Start: 02-21-2025 End: 02-21-[address] Arnold Cleveland DO Work Phone: -Laboratory Work Phone: Start: 02-21-2025 End: 02-21-2025 ambulatory [facility] Facility:[facility] Start: 12-19-2024 End: 12-19-[address] Charlene Mitchell MD -Laboratory Work Phone: Start: 12-19-2024 End: 12-19-2024 ambulatory Charlene Mitchell Facility:[facility] Start: 12-05-2024 Encounter for gynecological examination (general) (routine) without abnormal findings Arnold Cleveland [facility] Start: 11-30-2024 End: 11-30-2024 ambulatory ARNOLD CLEVELAND DO [facility] Start: 11-30-2024 End: 11-30-2024 Patient encounter procedure ARNOLD CLEVELAND DO [facility] Start: 11-16-2024 End: 11-16-[address] Arnold Cleveland DO -Laboratory Work Phone: Start: 11-16-2024 End: 11-16-2024 ambulatory Arnold Cleveland Facility:[facility] Start: 11-14-2024 End: 11-18-2024 ambulatory ARNOLD CLEVELAND DO Facility:[facility] Start: 11-14-2024 End: 11-18-2024 Encounter for gynecological examination (general) (routine) without abnormal findings ARNOLD CLEVELAND DO Facility[facility] Start: 11-14-2024 End: 11-18-2024 Outreach Lab ARNOLD CLEVELAND DO [facility] Start: 10-25-2024 End: 10-25-2024 ambulatory Arnold Cleveland Facility:[facility] Start: 10-19-2024 End: 10-19-2024 ambulatory Charlene Mitchell Facility:[facility] Start: 07-27-2024 End: 07-27-2024 ambulatory Gypsy Greenberg Facility:[facility] Start: 06-29-2024 End: 06-29-2024 ambulatory Arnold Cleveland Facility:[facility] Start: 06-27-2024 End: 06-27-2024 Emergency department patient visit Arnold Cleveland Facility:[facility] Start: 06-16-2024 End: 06-16-2024 ambulatory SHANNA JUSTICE Facility:[facility] Start: 06-16-2024 End: 06-16-2024 Patient encounter procedure Barrington Monroy APRN.CNP Work Phone: [facility] Comment on above: Rhus dermatitis (Meli tamia Dx) Start: 2024 End: 2024 ambulatory Arnold Cleveland Facility:[facility] Start: 12-22-2023 End: 12-23-2023 ambulatory ARNOLD CLEVELAND DO Facility:B Start: 11-15-2023 End: 11-16-2023 ambulatory ARNOLD CLEVELAND DO Facility:[facility] Start: 11-15-2023 End: 11-15-2023 Patient encounter procedure ARNOLD CLEVELAND DO [facility] Start: 11-12-2023 Non-patient / Non-visit Dr. Derek Cleveland Work Phone: [facility] Start: 11-12-2023 End: 11-12-2023 Admission to same day surgery center Dr. Arnold Cleveland Work Phone: [facility]-Endoscopy Work Phone: Start: 11-12-2023 End: 11-12-[address] Arnold Cleveland Work Phone: [facility] Work Phone: Start: 11-03-2023 Non-patient / Non-visit Dr. Derek Cleveland Work Phone: [facility] Work Phone: Start: 10-06-2023 End: 10-06-2023 ambulatory [facility] Work Phone: Start: 10-06-2023 End: 10-06-2023 Patient encounter procedure [facility]-Laboratory Work Phone: Start: 09-29-2023 ambulatory ARNOLD CLEVELAND DO Facil ity:B Start: 09-24-2023 End: 09-25-2023 ambulatory ARNOLD CLEVELAND DO Facility:B Start: 09-24-2023 End: 09-24-2023 Patient encounter procedure ARNOLD CLEVELAND DO [facility] Start: 08-12-2023 End: 08-12-2023 Patient encounter procedure [facility]-Laboratory Work Phone: Start: 04-08-2023 End: 04-08-2023 ambulatory [facility] Work Phone: Start: 04-08-2023 End: 04-08-2023 Patient encounter procedure [facility]-Laboratory Start: 11-09-2022 End: 11-09-2022 Patient encounter procedure ARNOLD CLEVELAND DO [facility] Start: 05-16-2022 End: 05-16-2022 Emergency department patient visit [facility]-Emergency Department Start: 05-05-2022 End: 05-05-2022 Patient encounter procedure [facility]Laboratory Start: 01-09-2022 End: 01-09-2022 Patient encounter procedure [facility]-Laboratory Start: 10-29-2021 End: 11-02-2021 Outreach Lab KARIN SNYDER FISH ROD MAKER-[employer] [facility] Start: 05-20-2021 End: 05-20-2021 Transcribe Orders Lawanda Kapadia MA [facility] Comment on above: Thyroid nodule (Prim ra Dx) Procedures Date Procedure Procedure Detail Performing Clinician Start: 11-12-[address] Christy Cleveland Work Phone: Start: 12-22-2018 Date of last papanic olaou test (observable entity) KARIN SNYDER FISH ROD MAKER-[employer] Start: 01-05-2017 Hysteroscopy KARIN SNYDER FISH ROD MAKERAltech SoftwareCLE[employer] UP HEL[employer] Colonoscopy KARIN SNYDER FISH ROD MAKER -[employer] Destructive procedure KARINBirgit HENDERSON FISH ROD [employer] Comment on above: [facility] Dilation and curettage KARIN SNYDER FISH ROD MAKER-[employer] Endoscopy of upper gastrointestinal tract and removal of foreign body from esophagus KARIN SNYDER FISH ROD MAKER-[employer] Laser assisted in si tu keratomileusis KARIN SNYDER FISH ROD MAKER-[employer] Comment on above: OU Structure of wisdom tooth (body structure) KARIN SNYDER FISH ROD MAKER-[employer] Tonsillectomy KARIN SNYDER APR N-[employer] Plan of Treatment Date Care Activity Detail Author Start: 07-09-2024 Influenza vaccination Influenza Vaccine (#1) [facility] Start: 04-06-2024 Urine microalbumin profile DTaP,Tdap,Td Vaccine (2 - Td or Tdap) [facility] Start: 11-12-2023 Patient discharge [facility] Start: 07-09-2023 Covid-19 Vaccine ( season) Covid-19 Vaccine () [facility] Start: 2023 Diabetes Screening Diabetes Screening [facility] Start: 2023 Lipid panel Lipid Screening [facility] Start: 2023 Screening for malignant neoplasm of colon [facility] Start: 10-17-2021 End: 10-17-2021 Patient encounter procedure 10/17/2021 Office Visit Endocrinology Trever Day, [employer] [address] [place] [address] [phone] [facility] [place] Start: 07-09-2021 Influenza vaccination Sequential Influenza Vaccine (#1) [facility] Start: 2018 Screening for malignant neoplasm of breast Mammogram Screening [facility] Start: 2018 Screening mammography Mammogram [facility] Start: 1999 Screening for malignant neoplasm of cervix Cervical Cancer Screening [facility] Start: 1997 Hepatitis B Vaccine (1 of 3 - 19+ 3-dose series) Hepatitis B Vaccine (1 of 3 - 19+ 3-dose series) [facility] Start: 1996 Anxiety Screening Anxiety Screening [facility] Start: 1996 Depression Screening Depression Screening [facility] Start: 1996 Hepatitis C screening Hepatitis C Screening [facility] Start: 1996 HIV screening HIV Screening [facility] Start: 1993 HIV screening HIV Screening [facility] Start: 1990 COVID-19 Vaccine (1) COVID-19 Vaccine (1) [facility] Start: 1990 Depression screening using PHQ-9 (Patient Health Questionnaire 9) score Depression Screening (PHQ9) [facility] Start: 1981 History and physical examination, annual for health maintenance Wellness Visit [facility] Start: 1978 Screening for malignant neoplasm of cervix Pap Smear [facility] Start: 1978 Tetanus vaccination Tetanus: Every 10yrs [facility] Colonoscopy [facility] Patient Education ED Back Pain ( Acute or Chronic) ED Sciatica [facility] Work Phone: Patient referral [facility] Work Phone: Serum testosterone measurement [facility] Sex hormone binding globulin [Moles/volume] in Serum or Plasma [facility] Testosterone Free [Mass/volume] in Serum or Plasma [facility] Testosterone measurement [facility] Immunizations Immunization Date Immunization Notes Care Provider Fa cility 11-14-2024 tetanus toxoid, redu luiza diphtheria toxoid, and acellular pertussis vaccine, adsorbed; Translations: [Boostrix (Tdap)] ARNOLD CLEVELAND DO [facility] 07-26-2022 influenza virus vaccine, unspecified formulation ARNOLD CLEVELAND DO [facility] 10-11-2021 SARS-CoV-2 mRNA (tozinameran) vaccine ARNOLD KEVIN DO [facility] 02-27-2021 SARS-CoV-2 (COVID-19 ) mRNA-1273 vaccine ARNOLD KEVIN DO [facility] Comment on above: Result Comment: 2021: [id number] 01-30-2021 SARS-CoV-2 (COVID-19 ) mRNA-1273 vaccine KARIN CLAUDIO FISH [employer] [facility] Comment on above: Result Comment: 2020: TPV40 08-07-2020 influenza, injectabl e, quadrivalent, preservative free; Translations: [Fluarix PF Quadrivalent ] KARIN SNYDER FISH R[employer] [facility] 04-06-2014 tetanus toxoid, redu luiza diphtheria toxoid, and acellular pertussis vaccine, adsorbed KARIN SNYDER FISH [employer] [facility] Payers Date Payer Category Payer Self-pay [id number] 2022 Unknown [id number] 2022 Unknown [id number] 2011 Private Health Insurance [employer] HMO/NTWK/OACCESS/OA+/PO S [id number] 2011-Present [id number] 1978 Unknown [id number] [id number]. 627 1978 Unknown [id number] 2.16.840.1.319769.3.579.2. 627 1978 Unknown [id number] 2..[id number]. 627 1978 Unknown [id number] 2.16.840.1.896148.3.579.2. 627 1978 Unknown [id number] 2.16.840.1.047926.3.579.2. 627 1978 Unknown [id number] 2.16.840.1.681146.3.579.2. 627 Private Health Insurance [id number] Unknown [id number] 2.16.840.1.390163.3.579.2. 462 Unknown [id number] 2.16.840.1.884374.3.579.2. 462 Unknown [id number] 2.16.840.1.281611.3.579.2. 462 Unknown [id number] 2.16.840.1.806927.3.579.2. 462 Unknown [id number] 2.16.840.1.641645.3.579.2. 462 Unknown [id number] 2.16.840.1.489834.3.579.2. 462 Unknown [id number] 2.16.840.1.111029.3.579.2. 462 Unknown [id number] 2.16.840.1.598687.3.579.2. 462 Unknown [id number] 2.16.840.1.836780.3.579.2. 462 Unknown [id number] 2.16.840.1.982772.3.579.2. 462 Unknown [id number] 2.16.840.1.711048.3.579.2. 462 Unknown [id number] 2.16.840.1.475619.3.579.2. 462 Social History Date Type Detail [facility] Start: 1980 Sex Assigned At Not on file O [facility] Start: 11-07-2019 End: 06-27-2024 Never smoked tobacco (finding) [facility] Start: 1980 Sex Assigned At Female [facility] Start: 12-15-2019 End: 11-12-2023 Tobacco smoking status HIIS Unknown if ever smoked [facility] Start: 06-16-2024 Tobacco use and exposure Smokeless tobacco non-user [facility] Start: 06-16-2024 History of Social function [facility] Start: 06-16-2024 Tobacco use panel [facility] Sexual Orientation [facility] Start: 05-03-2019 End: 02-26-2025 Sex Female (finding) [facility] NEGATED: Highlighted row [facility] Goals Date Patient Goal Desired Activity /State Mental Status Date Assessment Result Facility 11-12-2023 Cognitive function [address] [facility] Work Phone: Clinical Notes 04-28-2021 to 11-14-2024 LaboratoryRadiologyLaboraBarrington Fortune APRN.[employer] - 06/16/2024 7:52 AM EDTLaboratoryLaboratory Note Date & Type Note Facility 11-14-2024 Evaluation + Plan note Future Scheduled TestsLipid Profile 11/14/24Vitamin D Level 11/14/24Complete Metabolic Panel 11/14/24MA Mammo Screening Bilateral w/ Arturo 11/14/24 [facility] 11-14-2024 Evaluation + Plan note Future Scheduled TestsLipid Profile 11/14/24Vitamin D Level 11/14/24Complete Metabolic Panel 11/14/24 [facility] 06-16-2024 Note HNO ID: [id number] Author: BARRINGTON MONROY APRN.[employer] Service: ? Author Type: Nurse Practitioner Type: Progress Notes Filed: 06/16/2024 09:38 Note Text: Subjective HPI HPI Sharon Wayne is a 44 year old female who presents today for CC of itchy rash all over. This started 3 days ago. Has tried otc medication for relief. Symptoms are worsened by nothing. Risk factors recently pulling weeds. .Patient presents with: Rash: Poison simon or sumac x3 days No past medical history on file. No past surgical history on file. ALLERGIES Cephalosporins MEDICATIONS WELLBUTRIN SR 200 mg 12 hr tablet Take 1 tablet by mouth two times a day. levothyroxine (SYNTHROID) 50 mcg tablet Take 1 tablet by mouth once daily. Estradiol 0.0375 mg/24 hr Apply 1 patch twice a week by transdermal route for 28 days. progesterone micronized (PROMETRIUM) 100 mg capsule Take 1 capsule every day by oral route at bedtime for 30 days. nitrofurantoin monohydrate and macrocrystal (MACROBID) 100 mg capsule No family history on file. Social History Tobacco Use Smoking status: Never Smokeless tobacco: Never Review of Systems Constitutional: Negative for chills and fever. Skin: Positive for itching and rash (Positive for clear, watery drainage. Denies warmth and purulent drainage.). Objective Blood pressure 108/78, pulse 68, temperature 36.3 ?C (97.3 ?F), resp. rate 18, weight 81.3 kg (179 lb 3.7 oz), SpO2 99%. Physical Exam Constitutional: General: She is not in acute distress. Appearance: She is not toxic-appearing or diaphoretic. HENT: Head: Normocephalic and atraumatic. Skin: General: Skin is warm and dry. Findings: Rash present. Rash is vesicular (distribution linear ). Neurological: Mental Status: She is alert and oriented to person, place, and time. ASSESSMENT/PLAN: 1. Rhus dermatitis - ICD9: 692.6, ICD10: L25.5 - Oral Steriod tx -Prednisone taper - Topical steriod tx with Rx for steriod cream/ointment- see orders - discussed skin care of rash - follow up if symptoms persist or worsen. - PREDNISONE 10 MG TABLET - TRIAMCINOLONE ACETONIDE 0.1 % TOPICAL CREAM Barrington Monroy APRN.[facility] 06-16-2024 History of Present illness Narrative Images from the original note were not included. Subjective HPI HPI Sharon Wayne is a 44 year old female who presents today for CC of itchy rash all over. This started 3 days ago. Has tried otc medication for relief. Symptoms are worsened by nothing. Risk factors recently pulling weeds. .Patient presents with: Rash: Poison simon or sumac x3 days No past medical history on file. No past surgical history on file. ALLERGIES Cephalosporins MEDICATIONS WELLBUTRIN SR 200 mg 12 hr tablet Take 1 tablet by mouth two times a day. levothyroxine (SYNTHROID) 50 mcg tablet Take 1 tablet by mouth once daily. Estradiol 0.0375 mg/24 hr Apply 1 patch twice a week by transdermal route for 28 days. progesterone micronized (PROMETRIUM) 100 mg capsule Take 1 capsule every day by oral route at bedtime for 30 days. nitrofurantoin monohydrate and macrocrystal (MACROBID) 100 mg capsule No family history on file. Social History Tobacco Use Smoking status: Never Smokeless tobacco: Never Review of Systems Constitutional: Negative for chills and fever. Skin: Positive for itching and rash (Positive for clear, watery drainage. Denies warmth and purulent drainage.). Objective Blood pressure 108/78, pulse 68, temperature 36.3 C (97.3 F), resp. rate 18, weight 81.3 kg (179 lb 3.7 oz), SpO2 99%. Physical Exam Constitutional: General: She is not in acute distress. Appearance: She is not toxic-appearing or diaphoretic. HENT: Head: Normocephalic and atraumatic. Skin: General: Skin is warm and dry. Findings: Rash present. Rash is vesicular (distribution linear ). Neurological: Mental Status: She is alert and oriented to person, place, and time. ASSESSMENT/PLAN: 1. Rhus dermatitis - ICD9: 692.6, ICD10: L25.5 - Oral Steriod tx -Prednisone taper - Topical steriod tx with Rx for steriod cream/ointment- see orders - discussed skin care of rash - follow up if symptoms persist or worsen. - PREDNISONE 10 MG TABLET - TRIAMCINOLONE ACETONIDE 0.1 % TOPICAL CREAM Barrington Monroy APRN.CLEAN UP HELPER BANQUET documented in this encounter [facility] 11-12-2023 Procedure note [facility] 11-12-2023 Procedure note [facility] 04-28-2021 Evaluation + Plan note Future Scheduled TestsThyroid Antibodies 04/28/21Thyroid Stimulating Hormone 06/23/21Lipid Profile 06/23/21Vitamin D Level 06/23/21Complete Metabolic Panel 06/23/21 [facility] Evaluation + Plan note Future Appointments Appointment Date:10/26/2023 09:00:00 AM Scheduled Provider:ARNOLD CLEVELAND DO Location:[facility] Appointment Type: Wellness Annual Future Scheduled TestsLipid Profile 10/27/22Hepatitis C Antibody IgG 10/27/22Vitamin D Level 10/27/22Complete Metabolic Panel 10/27/22 [facility] Evaluation + Plan note Future Appointments Appointment Date:10/26/2023 09:00:00 AM Scheduled Provider:ARNOLD CLEVELAND DO Location:[facility] Appointment Type: Wellness Annual [facility] Evaluation note Diagnosis Thyroid nodule- Primary Nontoxic uninodular goiter [facility] Work Phone: Evaluation note* Diagnosis Onset Date Resolution Status Encounter for screening for malignant neoplasm of colo n acute [facility] Work Phone: Evaluation note* Diagnosis Rhus dermatitis- Primary Contact dermatitis and other eczema due to plants (except food) [facility] Author Raghavendra Barry [facility] November 12, 2023 8:21am Note Date/Time November 12, 2023 8: 21am [facility] Medical Records Department [address] [place] [address] History & Physical Exam 11/12/23819 MR#: [id number] Acct: [id number] Name: SHARON WAYNE Rep #:[id number] : 1980 43 From: Raghavendra parsons MD PCP: Dr. Arnold Cleveland, DO Status:REG [facility] Location: EN HPI - General HPI Narrative SHARON WAYNE, is a 43 F who presents for screening colonoscopy. Patient said her last colonoscopy was 20 years ago. She denies any abdominal pain or blood in the stool. She is not on blood thinners. She has no family history of coloncancer. REPLACED BY [facility] Medical History (Updated 11/10/23 @ 14:10 by Jacque Mobley) Anxiety Depression High cholesterol Hx of colonic polyps Hyperlipidemia Hypothyroid Non-smoker Post-menopausal Thyroid disease Home Medications hydrocodone-acetaminophen 5-325mg 5mg-325mg 1 tab PO Q4H PRN pain 5 days #20 tabs 05/16/22 [Rx Last Taken Unknown] levothyroxine 50 mcg tablet 1 tab PO DAILY 05/16/22 [History Last Taken Unknown] bupropion HCl 200 mg tablet,12 hr sustained-release 200 mg PO BID 11/03/23 [History Last Taken Unknown] cyanocobalamin (vitamin B-12) 50 mcg tablet (Vitamin B-12) 50 mcg PO DAILY 11/03/23 [History Last Taken Unknown] glucosamine 375 qv-zhfshozbe-oxw no1 500 mg-C 15 mg-mitchell 0.5 mg tablet 1 tab PO DAILY 11/03/23 [History Last Taken Unknown] magnesium oxide 250 mg PO DAILY 11/03/23 [History Last Taken Unknown] naproxen 500 mg-esomeprazole 20 mg tablet,immediate and delay release (Vimovo) 1tab PO BID PRN pain 11/03/23 [History Last Taken Unknown] nitrofurantoin macrocrystal 50 mg capsule 50 mg PO DAILY PRN After [place] 11/03/23 [History Last Taken Unknown] cholecalciferol (vitamin D3) 25 mcg (1,000 unit) capsule (Vitamin D3) 25 mcg PO DAILY 11/10/23 [History Last Taken Unknown] Allergy/AdvReac Type Severity Reaction Status Date / Time cephalexin Allergy Hives Verified 11/10/23 14:03 Cephalosporins Allergy Hives Verified 11/10/23 14:03 Seasonal Allergies: Uncoded Allergy Cough, Verified 11/10/23 14:03 Drainage Family History (Updated 11/03/23 @ 11:17 by Yessica Monroy) Grandmother Breast cancer Surgical History (Updated 11/10/23 @ 14:10 by Jacque Mobley) History of endometrial ablation History of esophagogastroduodenoscopy (EGD) History of hysteroscopy History of wisdom tooth extraction Hx of colonoscopy Hx of tonsillectomy Social History Smoking Status: Never smoker Past Medical/Surgical History Planned Operation Planned Operative Procedure/s: CSCOPE Previous Hospitalizations/Surgeries HX Hospitalizations: No Any Problems With Anesthesia: No You/Your Family Experience Fever (Hyperthermia) With Anes: No Cholinesterase deficiency: No Cardiovascular Hx Hypertension: No Respiratory Hx Sleep Apnea: No Hx Respiratory Tract Infection/Cold (presently): No Do You Snore Loudly (louder than talking or can be heard): No Do You Often Feel Tired/ Fatigued/ Sleepy Dring Daytime?: No Has Anyone Observed You Stop Breathing During Sleep?: No Result (for STOP score): Negative Smoking Status: Never smoker Neurological Hx Back Injury/Pain: Yes (bulging discs) Does patient have nerve stimulator: No Reproduction : No Miscellaneous Recent Exposure to Contagious Disease: No Allergies cephalexin Allergy (Verified 11/10/23 14:03) Hives Cephalosporins Allergy (Verified 11/10/23 14:03) Hives Seasonal Allergies: Uncoded Allergy (Verified 11/10/23 14:03) Cough, Drainage Discharge Is Pt Admitted From a Detention, or a Detention: No After D/C, Where Do you Plan to Go: Return Home Vital Signs Vital Signs Vital Signs: 11/12/23 07:51 11/12/23 07:51 Temperature 99.4 F H Temperature Source Temporal Pulse Rate 60 Respiratory Rate 16 Respiratory Pattern Normal Blood Pressure 92/63 Blood Pressure Mean 72 Blood Pressure Source Monitor Blood Pressure Position Semi-Fowlers Blood Pressure Location Left Arm Pulse Ox 100 Oxygen Delivery Method Room Air Weight Weight: 176 lb 5.917 oz Body Mass Index (BMI) 27.6 Physical Exam Const alert and oriented x3 HEENT normocephalic Eyes PERRL Resp normal respiratory effort and normal air movement Cardio regular rate and regular rhythm GI soft to palpation, non-tender and non-distended Extremity normal to inspection Assessment & Plan Assessment/Plan (1) Encounter for screening for malignant neoplasm of colon: PLAN: I explained endoscopy in detail to the patient. I explained the risks including but not limited to stroke or heart attack with anesthesia, perforationof the GI tract, bleeding, infection. I explained that any of these could necessitate further emergency surgery. The patient understands and all questions were answered sufficiently. The patient wishes to proceed with procedure. Raghavendra Barry MD Pager: [facility] [address] [place] [address], [address] [place] [address] Office: Surgery Risks - Colonoscopy Risks Include but are not Limited To: Risks include but are not limited to: Bleeding, perforation requiring further surgery, inability to complete colonoscopy requiring barium enema. 11/12/23 0821 <Electronically signed by Raghavendra Barry MD> Cosigner Signature (if applicable): CC: Dr. Raghavendra Barry MD; Dr. Arnold Cleveland, ~ Signed [facility] Work Phone: Hospital course Narrative No data available for this section [facility] Discharge instructions No data available for this section [facility] Progress note No data available for this section [facility] Reason for referral (narrative)No reason for referral information availableWHolzer [facility] Work Phone: Reason for Referral Status Reason Specialty Diagnoses / Procedures Referred By Contact Referred To Contact Authorized Specialty Services Required/Patien t's Best Interest Endocrinology Diagnoses Thyroid nodule System, Provider Not In [place], Olivia Goodson MD [address] [place] [id number] Advance Directives No Advanced Directives Records FoundDocuments on File Type Date Recorded Patient Conference Services Manager Expl anation Advance Directives and Livin g Will 05/20/2021 12:00 AM Advance Directive Response Recorded Date/ Time Living Will Yes June 10, 2019 6:20pm Power of Nicu Rn Yes June 10 6:20pm Advance Directive Response Recorded Date/ Time Name of Medical Power of Nicu Rn FLIP WAYNE May 16, 2022 5:54pm Living Will Yes May 16, 2022 5 :54pm Power of Nicu Rn Yes May 16, 2022 5:54pm Advance Directive Response Recorded Date/ Time Living Will Yes May 16, 2022 5 :54pm Power of Nicu Rn Yes May 16, 2022 5:54pm Advance Directive Response Recorded Date/ Time Living Will Yes May 16, 2022 4 :54pm Power of Nicu Rn Yes May 16, 2022 4:54pm Advance Directive Response Recorded Date/ Time Name of Medical Power of Nicu Rn FLIP WAYNE November 10, 2023 2:06pm Living Will Yes November 10 2:06pm Power of Nicu Rn Yes November 10 024 2:06pm Chief Complaint and Reason for Visit Chief Complaint BACK Chief Complaint NONTOXIC MULTINODULA R GOITER Chief Complaint Amb Documentation Reason for Visit Encounter for screen ing for malignant neoplasm of colon Summary Purpose Family History No Family History Records Found Additional Source Comments Goals (unrecognized section and content) Goals may be documented in a n alternate section Care Team (unrecognized sect ion and content) Care Team Personnel Name: CHARLENE MITCHELL MD Position: P3 Physician - Endocrinology Member Role: Manager Report Address: Address: [facility] [address] [place] [address] & [place] [address]- [place] Name: ARNOLD CLEVELAND DO Position: P4 Physician - Primary Care Member Role: Primary Care Physician Address: Address: [address] [facility] [place] [address]- Care Team Related Persons Name: FLIP WAYNE Address: Home [address] [place], [place] [id number] [place] Name: STACY WAYNE Address: Home [address] [place], [place] [id number] Address: [facility] [address] [place], [place] [id number] Care Teams (unrecognized sec tion and content) Team Status: Active Member Role Status Dates Sienna Ballard PIT HAND, PIT HAND-C Family Provider Active Dr. Arnold Cleveland DO Primary Care Provider Active Team Status: Inactive Member Role Status Dates Dr. Arnold Cleveland DO Primary Care Provider Active Dr. Charlene Mitchell MD Attending Provider, Referring Provider Active Team Status: Inactive Member Role Status Dates Dr. Arnold Cleveland DO Primary Care Pro vider, Attending Provider, Referring Provider Active Team Status: Active Member Role Status Dates Dr. Arnold Cleveland DO Primary Care Provider Active Yessica Monroy Attending Provider Active Team Status: Active Member Role Status Dates Dr. Arnold Cleveland DO Primary Care Provider, Referri ng Provider Active Dr. Raghavendra Barry MD Attending Provider, Other Provider Active Team Status: Inactive Member Role Status Dates Dr. Arnold Cleveland DO Primary Care Provider, Referri ng Provider Active Dr. Raghavendra Barry MD Attending Provider Active Volunteer Services Assistant Relationship Specialty Start Date End Date Shanna Justice DO [address] [place] [address] PCP - General Internal Medicine 06/16/24 Team Status: Active Member Role Status Dates Dr. Arnold Cleveland DO Primary Care Provider Active Team Status: Inactive Member Role Status Dates Dr. Arnold Cleveland DO Primary Care Provider Active Start: November 16, 2024 End: November 16, 2024 Dr. Arnold Cleveland DO Attending Provider Active Start: November 16, 2024 End: November 16, 2024 Dr. Arnold Cleveland DO Referring Provider Active Start: November 16, 2024 End: November 16, 2024 Team Status: Inactive Member Role Status Dates Dr. Arnold Cleveland DO Primary Care Provider Active Start: December 19, 2024 End: December 19, 2024 Dr. Charlene Mitchell MD Attending Provider Active Start: December 19, 2024 End: December 19, 2024 Dr. Charlene Mitchell MD Referring Provider Active Start: December 19, 2024 End: December 19, 2024 Team Status: Inactive Member Role Status Dates Dr. Arnold Cleveland DO Primary Care Provider Active Start: February 21, 2025 End: February 21, 2025 KATE EL Attending Provider Active Start: February 21, 2025 End: February 21, 2025 Team Status: Inactive Member Role Status Dates Dr. Arnold Cleveland DO Primary Care Provider Active Start: April 24, 2025 End: April 24, 2025 Dr. Charlene Mitchell MD Attending Provider Active Start: April 24, 2025 End: April 24, 2025 Dr. Charlene Mitchell MD Referring Provider Active Start: April 24, 2025 End: April 24, 2025 INFORMATION SOURCE (unrecogn ized section and content) DATE CREATED AUTHOR 12/26/2023 [facility] ([place] DATE CREATED AUTHOR AUTHOR'S ORGANIZ ATION 06/18/2024 [facility] DATE CREATED AUTHOR AUTHOR'S ORGANIZ ATION 12/05/2024 [facility] DATE CREATED AUTHOR AUTHOR'S ORGANIZ ATION 05/22/2025 [facility] Source Comments (unrecognize d section and content) In the event this informatio n is protected by the Federal Confidentiality of Alcohol and Drug Abuse Patient Records regulations: The Federal rules restrict any use of the information to criminally investigate or prosecute any alcohol or drug abuse patient.[facility] Reason for Visit (unrecogniz ed section and content) Reason Comments Rash Poison simon or sumac x3 days FOR RECORDS PERTAINING TO PATIENTS WHO ARE [...] BE BASED ON THE PRIMARY CLINICAL RECORDS. [facility]. provides no warranty or guarantee of the accuracy or completeness of information in this document.
[2025-07-10 07:37] LABS: Cholesterol 207 mg/dL (<=200); Low Density Lipoprotein Calc. 124 mg/dL; Triglycerides 122 mg/dL; Very Low Density Lipoprotein 24 mg/dL (5-40); cholesterol:hdl ratio screen 3.51
== END | disposition home or self-care (01) ==
LOC: LAB 06:06
PROVIDERS: PCP Family Medicine
DX: R68.82 Decreased libido (principal); E78.5 Hyperlipidemia, unspecified
CPT/HCPCS: 36415; 80061; 84270; 84402; 84403

== ENCOUNTER → 2025-10-24 | Outpatient (CLI) | payer BC, SELFPAY | END | disposition home or self-care (01) | LOC: LAB 08:58 | PROVIDERS: PCP Family Medicine; Referring Provider Internal Medicine Endocrinology, Diabetes & Metabolism; Visit Provider Internal Medicine Endocrinology, Diabetes & Metabolism | DX: E03.9 Hypothyroidism, unspecified (principal) | CPT/HCPCS: 36415; 84443 ==

== ENCOUNTER → 2025-10-26 | Outpatient (CLI) | payer BC, SELFPAY ==
--- OUTSIDE RECORDS SUMMARY | 2025-10-26 07:25 | XMS RPT_ITS | CCD ---
Author Organization [facility] Care Team Providers Care Tagman Name Role Phone No, Physician Primary Care Provider Unavaildiana e ARNOLD CLEVELAND DO Primary Care Physician [phone] Dr. Arnold Cleveland Primary Care Provider Yessica Monroy Attending Provider Unavailable Dr. Arnold Cleveland Referring Provider [phone] Dr. Raghavendra Barry Attending Provider [phone] Dr. Raghavendra Barry Other Provider ARNOLD CLEVELAND DO Primary Care Physician [phone] ARNOLD CLEVELAND DO Attending Unavailable KEVIN DOARNOLD Primary Care Unavailable KEVIN DOARNOLD Attending Unavailable KEVIN DOARNOLD Primary Care Unavailable KEVIN DOARNOLD Attending Unavailable KEVIN DOARNOLD Primary Care Unavailable KEVIN DOARNOLD Attending Unavailable KEVIN DOARNOLD Primary Care Unavailable Shanna Justice DO Primary Care Provider SHANNA JUSTICE Primary Care Unavailab le KEVIN DOARNOLD Attending Unavailable KEVIN DOARNOLD Primary Care Unavailable ARNOLD CLEVELAND DO Attending Unavailable ARNOLD CLEVELAND DO Primary Care Unavailable Dr. Arnold Cleveland DO Primary Care Provider [phone] Dr. Arnold Cleveland DO Attending Provider Dr. Arnold Cleveland DO Referring Provider Dr. Charlene Mitchell MD Attending Provider Dr. Charlene Mitchell MD Referring Provider SIENNA LOVE Attending Provider Dr. Arnold Cleveland DO Primary Care Provider Irvin SOTO, Dr. Chang Attending Provider Dr. Charlene Mitchell MD Referring Provider CONCHA TOLENTINO Attending Unavailable Kevin, Arnold Primary Care Unavailable Charlene Mitchell Attending Unavailable Charlene Mitchell Referring Unavailable Kevin, Arnold Primary Care Unavailable Kevin, Arnold Primary Care Unavailable Kevin, Arnold Attending Unavailable Kevin, Arnold Referring Unavailable CONCHA TOLENTINO Attending Unavailable CONCHA TOLENTINO Referring Unavailable Kevin, Arnold Primary Care Unavailable CONCHA TOLENTINO Attending Unavailable CONCHA TOLENTINO Referring Unavailable Kevin, Arnold Primary Care Unavailable Charlene Mitchell Attending Unavailable Irvin, Charlene Referring Unavailable Kevin, Arnold Primary Care Unavailable Kevin, Arnold Primary Care Unavailable Charlene Mitchell Attending Unavailable Charlene Mitchell Referring Unavailable Dr. Arnold Cleveland DO Primary Care Physician Dr. Charlene Mitchell MD Attending Physician [phone] SIENNA LOVE Attending Physician SIENNA LOVE Referring Provider Allergies Allergy Classification Reported Allergen(s) Allergy Type Date of Onset Reaction(s) Facility (10 sources) Cephalexin; Translations: [cephalexin] Drug Allergy 4 [facility] (16 sources) Cephalosporins (Antibiotic); Translations: [cephalosporins] Drug allergy 9 [facility] (6 sources) seasonal enviromental Allergy to substance Drainage procedure (procedure), Cough (finding) [facility] (5 sources) Seasonal Allergies: Uncoded; Translations: [Seasonal Allergies: Uncoded] Allergy to substance 4 Cough, Drainage [facility] (1 source) Cephalexin Drug Allergy 4 [facility] Repository Medications Current Medications Medication Drug Class(es) Dates Sig (Normalized) Sig (Original) acetaminophen 325 mg / HYDROcodone bitartrate 5 mg oral tablet (9 sources) Opioid Agonist Start: 05-16-2022 take 1 tablet by mouth every four hours as needed for pain Start: 05-16-2022 take 1 tablet by zandra th every four hours Hydrocodone-Acetaminophen Active 1 TABLE T PO Q4H 20 May 16, 2022 12 hr buPROPion hydrochlorid e 200 mg extended release oral tablet (20 sources) Aminoketone Start: 11-03-2023 take 1 tablet by zandra th twice daily Start: 10-26-2023 take 1 tablet by zandra th every hour, then take 1 tablet by mouth twice daily buPROPion 200 mg/12 hours (SR) oral tablet, extended release Dose : 200 mg = 1 tab(s), Oral, BID, Change in dosing, # 180 tab(s), 0 Refill(s), Pharmacy: [facility] #[id number], Anxiety and depression, 171, cm, 10/26/23 9:05:00 EST, Height, kg, 10/26/23 9:05:00 EST, Dosing Weight Start Date: 10/26/23 Status: Ordered Start: 10-27-2022 take 1 tablet by zandra th every hour, then take 1 tablet by mouth every twenty-four hours buPROPion 150 mg/24 hours (XL) oral tablet, extended release Dose : 150 mg = 1 tab(s), Oral, q24h, # 90 tab(s), 3 Refill(s), Pharmacy: [facility] #[id number], Anxiety and depression, 172, cm, 10/27/22 10:37:00 [...] 12:19pm Start: 09-24-2021 [facility], then take 1 tablet by mouth once daily buPROPion 300 mg/24 hours (XL) oral tablet, extended release Dose : 300 mg = 1 tab(s), Oral, qDay, increased dose, # 30 tab(s), 2 Refill(s), Pharmacy: [facility], Anxiety and depression, 171, cm, 04/28/21 [...] Status: Ordered cholecalciferol 0.025 mg oral capsule (7 sources) Vitamin D Start: 11-10-2023 take 1 capsule by mouth once daily Start: 05-16-2022 take 1 capsule by mo [facility] every week Cholecalciferol (Vitamin D3) Active 1 CAP PO EVERY WEEK May 15, 2022 11:00pm Chondroitin Sulfates / Glucosamine (3 sources) Start: 05-05-2022 take 1 tablet by mouth once daily Glucosamine Chondroitin 1 tablet, Oral, qDay, 0 Refill(s) Start Date: 05/05/22 Status: Ordered cobamamide 0.1 mg / vitamin b12 5 mg sublingual tablet (1 source) Vitamin B12 Start: 01-31-2019 Cyanocobalamin -Co bamamide (B12) 5,000-100 mcg lozenge Active LOZENGE SL January 31, 2019 12:00am Culturelle [employer] (1 source) Start: 08-07-2020 take 1 capsule by mouth once daily Culturelle [employer] Dose = 1 cap(s), Oral, qDay, 0 Refill(s) Start Date: 08/07/20 Status: Ordered cyclobenzaprine hydrochloride 5 mg oral tablet (11 sources) Muscle Relaxant Start: 06-27-2024 take 1 tablet by mouth three times daily as needed for muscle spasms Start: 06-10-2019 End: 12-14-2019 take 1 tablet by mouth three times daily as needed for muscle spasms Cyclobenzaprine 10 MG tablet Discontinued 10 mg PO THREE TIMES A DAY as needed for Muscle Spasm 20 June 10, 2019 12:00am December 14, 2019 9:37am esomeprazole 20 mg / naproxen 500 mg delayed release oral tablet (12 sources) Proton Pump Inhibitor, Nonsteroidal Anti-inflammatory Drug Start: 01-31-2019 End: 11-03-2023 84 hr estradiol 0.44611 mg/hr transdermal system (1 source) Estrogen Start: [...] 0 Refill(s) Start Date: 08/07/20 Status: Ordered Urixsjfw-Hzugy-Tpj7-C-Mitchell-B or (1 source) Start: 11-03-2023 take 1 tablet by mouth once daily Vxlbloly-Tzckb-Knj6-C-Mitchell-Bor Active 1 TABLET PO DAILY November 03, 2023 12:00am Yuasyazn-Qkzoe-Gzq2-C-Mitchell-B or 547-198-19-0.5 mg tablet (3 sources) Start: 11-03-2023 Start: 11-03-2023 Glucosam-Chond -Fcv5-V-Zskq-Bor 904-212-51-0.5 mg tablet Active 1 {tbl} PO DAILY November 03, 2023 1:00am levothyroxine sodium 0.05 mg oral tablet (12 sources) l-Thyroxine Start: 05-16-2022 Start: 10-29-2021 take 1 tablet by zandra th once daily levothyroxine (SYNTHROID) 50 mcg tablet Take 1 tablet by mouth once daily. 0 10/29/2021 Active Start: 10-29-2021 take 1 tablet by zandra th once daily levothyroxine 50 mcg (0.05 mg) oral tablet take 1 tablet by mouth once daily Start Date: 10/29/21 Status: Ordered magnesium oxide 250 mg oral tablet (7 sources) Start: 05-05-2022 take 1 tablet by mouth once daily naproxen sodium 220 mg oral capsule (10 sources) Nonsteroidal Anti-inflammatory Drug Start: 12-03-2022 Aleve [...] 9:19am nitrofurantoin, macrocrystals 50 mg oral capsule (6 sources) Nitrofuran Antibacterial Start: 08-31-2023 take 1 capsule by mouth once daily at mealtime nitrofurantoin, macrocrystals 25 mg / nitrofurantoin, monohydrate 75 mg oral capsule (1 source) Nitrofuran Antibacterial Start: 06-09-2024 nitrofurantoin monohydrate and macrocrystal (MACROBID) 100 mg capsule oxyCODONE hydrochloride 5 mg oral tablet (3 sources) Opioid Agonist Start: 06-27-2024 take 1 tablet by mouth every six hours as needed for pain predniSONE 10 mg oral tablet (1 source) [...] Active vitamin b12 0.05 mg oral tablet (4 sources) Vitamin B12 Start: 11-03-2023 take 1 tablet by mouth once daily Vitamin B12 50 mcg oral tablet (1 [...] Ordered traMADol hydrochloride 50 mg oral tablet (8 sources) Opioid Agonist Start: 02-21-2018 End: 12-14-2019 take 1 tablet by mouth every four hours as needed for pain Tramadol 50 MG tablet Discontinued 50 mg PO EVERY 4 HOURS NEEDED as needed for Pain 10 0 February 21, 2018 9:18am December 14, 2019 9:18am Vitamin D3 1250 mcg (50,000 intl units) oral capsule (2 sources) Start: 05-05-2022 End: 04-30-2023 Vitamin D3 1250 mcg (50,000 intl units) oral capsule Dose : 50,000 International_Unit = 1 cap(s), Oral, qWeek, # 13 cap(s), 3 Refill(s), Pharmacy: [facility], Vitamin D deficiency, 171.3, cm, 05/05/22 [...] # 13 cap(s), 3 Refill(s), Pharmacy: [facility], Vitamin D deficiency, 171, cm, 09/18/20 8:00:00 EST, Height, kg, 09/18/20 8:00:00 EST, Dosing Weight Start Date: 09/20/20 Stop Date: 09/15/21 Status: Ordered Problems Problem Classification Problem Date Documented Date Episodic/Chronic Allergic reactions (1 source) Contact dermatitis due to Genus Toxicodendron; Translations: [Unspecified contact dermatitis due to plants, except food] 06-16-2024 Episodic Anxiety disorders (6 sources) 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 Diseases of mouth; excluding dental (6 sources) 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 Disorders of lipid metabolism (4 sources) Hyperlipidemia 08-31-2023 Chronic Malaise and fatigue (6 sources) Fatigue 11-07-2019 Episodic Menopausal disorders (1 source) Unspecified menopausal and perimenopausal disorder; Translations: [Unspecified menopausal and perimenopausal disorder] Onset: 11-21-2024 Chronic Nutritional deficiencies (7 sources) Vitamin D deficiency; Translations: [Vitamin D deficiency, unspecified] Onset: 11-14-2024 05-05-2022 Chronic Other connective tissue disease (2 sources) Polymyalgia 12-09-2023 Chronic Other connective tissue disease (7 sources) H/O: osteoarthritis; Translations: [Personal history of [...] conditions (not mental disorders or infectious disease) (12 sources) Viral screening status; Translations: [Patient encounter status] Onset: 11-14-2024 10-27-2022 Episodic Residual codes; unclassified (4 sources) Screening due 08-31-2023 Episodic Residual codes; unclassified (2 sources) Chronic pain 01-27-2024 Episodic Residual codes; unclassified (1 source) Decreased libido; Translations: [Decreased libido] Onset: 07-27-2025 Episodic Spondylosis; intervertebral disc disorders; other back problems (6 sources) Degeneration of lumbosacral intervertebral disc; Translations: [Other intervertebral disc degeneration, lumbosacral region] 2022 Chronic Spondylosis; intervertebral disc disorders; other back problems (20 sources) Herniation of lumbar intervertebral disc with sciatica; Translations: [Sciatica] 11-03-2019 Episodic Thyroid disorders (14 sources) Thyroid nodule; Translations: [Nontoxic single thyroid nodule] Onset: 04-30-2025 Chronic Unclassified (20 sources) Patient encounter status 09-18-2020 Unclassified (4 sources) Influenza vaccination declined 08-31-2023 Unclassified (4 sources) Never used tobacco 08-31-2023 Unclassified (4 sources) Pain of knee region 12-03-2022 Unclassified (3 sources) Cancer cervix screening status 10-26-2023 Urinary tract infections (9 sources) Recurrent urinary tract infection; Translations: [Urinary tract infectious disease] 11-27-2021 Episodic Results Test Name Value Interpretation Reference Range Facility Sex Hormone-binding Globulin on 07-16-2025 SHBG 111.0 nmol/L Normal 24.6-122.0 [facility] Comment on above: Result Comment: Perf ormed at: [facility] [id number] Hall Coordinator: William Gonzalez MD, Phone: [phone] Performed at: [facility] [id number] Hall Coordinator: Roland Hedrick PhD, Phone: [phone] Performed By: #### L 500.4100, L3400.4800, L3100.5060, L509.3001 #### [facility] [address] [place], [place], [id number] Testosterone Freeon 07-16-20 25 TESTOSTER FREE 2.3 pg/mL Normal 0.0-4.2 [facility] Comment on above: Performed By: #### L 500.4100, L3400.4800, L3100.5060, L509.3001 #### [facility] [address] [place], [address] Calculated very low density lipoprotein (VLDL) cholesterol measurementon 07-10-2025 Calculated very low density lipoprotein (VLDL) cholesterol measurement 24 mg/dL 5-40 [facility] L509.3001on 07-10-2025 Testosterone [Mass/Vol] 33.10 ng/dL Normal 9-55 [facility] Comment on above: Performed By: #### L 500.4100, L3400.4800, L3100.5060, L509.3001 #### [facility] [address] [place], [address] LDL calc ser/plason 07-10-20 25 Cholesterol in LDL [Mass/Vol] 124 mg/dL [facility] Comment on above: Oithjahazt=636-095 m g/dL & Higher Fvdf=314 mg/dL or greaterFriedwald Equation for LDL-C Laboratory - Chemistry and C hemistry - challengeon 07-10-2025 Testosterone [Mass/Vol] 33.10 ng/dL 9-55 [facility] Lipid Profileon 07-10-2025 CHOL:HDL 3.51 Normal [facility] Comment on above: Performed By: #### L 500.4100, L3400.4800, L3100.5060, L509.3001 #### [facility] [address] [place], [address] Cholesterol [Mass/Vol] 207 mg/dL High <=200 [facility] Comment on above: Result Comment: Chol esterol level, Desirable <200 mg/dL Borderline high cholesterol 200-239 mg/dL High cholesterol >=240 mg/dL Recommendations of the NCEP Adult Treatment Panel for the following risk-cutoff thresholds for the [place] population. Performed By: #### L 500.4100, L3400.4800, L3100.5060, L509.3001 #### [facility] [address] [place], [address] Cholesterol in HDL [Mass/Vol] 59 mg/dL Normal [facility] Comment on above: Result Comment: Gabby onal Cholesterol Education Program (NCEP) guidelines: <40 mg/dL: Low HDL-cholesterol (major risk factor for CHD) >= 60 mg/dL: High HDL-cholesterol (negative risk factor for CHD) HDL-cholesterol is affected by a number of factors, e.g. smoking, exercise, hormones, sex and age. Performed By: #### L 500.4100, L3400.4800, L3100.5060, L509.3001 #### [facility] [address] [place], [address] Cholesterol in LDL [Mass/Vol] 124 mg/dL Normal [facility] Comment on above: Result Comment: Bord ittxko=557-627 mg/dL Higher Lzjh=660 mg/dL or greater Friedwald Equation for LDL-C Performed By: #### L 500.4100, L3400.4800, L3100.5060, L509.3001 #### [facility] [address] [place], [address] Cholesterol in VLDL [Mass/Vol] 24 mg/dL Normal 5-40 [facility] Comment on above: Performed By: #### L 500.4100, L3400.4800, L3100.5060, L509.3001 #### [facility] [address] [place], [address] Triglyceride [Mass/Vol] 122 mg/dL Normal [facility] Comment on above: Result Comment: The drugs N-Acetylcysteine and Metamizole may falsely depress this assay. Normal range: <150 mg/dL Borderline High: 150-199 mg/dL High: 200-499 mg/dL Very High: >500 mg/dL Performed By: #### L 500.4100, L3400.4800, L3100.5060, L509.3001 #### [facility] [address] [place], [place], [address] Screening total cholesterol/ high density lipoprotein (HDL) cholesterol ratioon 07-10-2025 Cholesterol.total/Chol esterol in HDL [Mass ratio] 3.51 {ratio} [facility] Serum or plasma cholesterol in HDL measurement (mass/volume)on 07-10-2025 Cholesterol in HDL [Mass/Vol] 59 mg/dL >40 [facility] Comment on above: National Cholesterol Education Program (NCEP) guidelines:<40 mg/dL: Low HDL-cholesterol (major risk factor for CHD)>= 60 mg/dL: High HDL-cholesterol (negative risk factor for CHD)HDL-cholesterol is affected by a number of factors, e.g. smoking, exercise, hormones, sex and age. Serum or plasma cholesterol measurement (mass/volume)on 07-10-2025 Cholesterol [Mass/Vol] 207 mg/dL High <201 [facility] Comment on above: Cholesterol level, D esirable <200 mg/dLBorderline high cholesterol 200-239 mg/dLHigh cholesterol >=240 mg/dLRecommendations of the NCEP Adult Treatment Panel for the following risk-cutoff thresholds for the [place] population. Serum or plasma free testost erone measurement (mass/volume)on 07-10-2025 Testosterone Free [Mass/Vol] 2.3 pg/mL 0.0-4.2 [facility] Serum or plasma sex hormone binding globulin measurement (moles/volume)on 07-10-2025 Sex hormone binding globulin [Moles/Vol] 111.0 nmol/L 24.6-122.0 [facility] Comment on above: Performed at: [address] [id number] Director: William Gonzalez MD, Phone: [phone] at: [facility] [id number] Director: Roland Hedrick PhD, Phone: [phone] Triglycerides measurementon 07-10-2025 Triglyceride [Mass/Vol] 122 mg/dL <199 [facility] Comment on above: The drugs N-Acetylcy steine and Metamizole may falsely depress this assay. Normal range: <150 mg/dLBorderline High: 150-199 mg/dLHigh: 200-499 mg/dLVery High: >500 mg/dL TSH DL <= 0.005 mIU/L QnOrde red By: Charlene Mitchell on 04-24-2025 TSH Qn 1.230 uIU/mL 0.300-4.200 [facility] Thyroid Stim Hormone (TSH)on 04-24-2025 TSH 1.230 uIU/mL Normal 0.300-4.200 [facility] Comment on above: Performed By: #### L 501.9520 #### [facility] [address] [place], [address] Sex Hormone-binding Globulin on 03-10-2025 SHBG 71.8 nmol/L Normal 24.6-122.0 [facility] Comment on above: Result Comment: Perf ormed at: [facility] [address] [place], [place] [id number] Hall Coordinator: Roland Hedrick PhD, Phone: [phone] Performed at: [facility] [id number] Hall Coordinator: William Gonzalez MD, Phone: [phone] Performed By: #### L 501.9520 #### [facility] [address] [place], [address] Testosterone, Total / Freeon 03-10-2025 TESTOSTER,FREE 0.56 ng/dL Normal 0.10-0.85 [facility] Comment on above: Order Comment: N Performed By: #### L 501.9520 #### [facility] [address] [place], [address] TESTOSTER,TOTAL 24 ng/dL Normal 4-50 [facility] Comment on above: Order Comment: N Performed By: #### L 501.9520 #### [facility] [address] [place], [address] TESTOSTERONE,%F 2.32 Normal 0.50-2.80 [facility] Comment on above: Order Comment: N Performed By: #### L 501.9520 #### [facility] [address] [place], [address] Free testosterone percentage on 02-21-2025 Testosterone Free/Testosterone.tota l [Mass fraction] 2.32 % 0.50-2.80 [facility] Serum or plasma free testost erone measurement (mass/volume)on 02-21-2025 Testosterone Free [Mass/Vol] 0.56 ng/dL 0.10-0.85 [facility] Serum or plasma sex hormone binding globulin measurement (moles/volume)on 02-21-2025 Sex hormone binding globulin [Moles/Vol] 71.8 nmol/L 24.6-122.0 [facility] Comment on above: Performed at: [facility] [address] [place], [place] [id number] Director: Roland Hedrick PhD, Phone: [phone] at: [facility] [address] [id number] Director: William Gonzalez MD, Phone: [phone] Testosterone, totalon 2024 Testosterone [Mass/Vol] 24 ng/dL 4-50 [facility] TSH QnOrdered By: Charlene willoughby on 12-19-2024 Thyroid Stimulating Hormone (TSH) 1.400 uIU/mL 0.358-3.740 [facility] Thyroid Stim Hormone (TSH)on 12-19-2024 TSH 1.400 uIU/mL Normal 0.358-3.740 [facility] Comment on above: Performed By: #### L 501.9520 #### [facility] [address] [place], [place], [address] MA MAMMOGRAM SCREENING BILAT ERAL W/TOMOon 12-04-2024 MA MAMMOGRAM SCREENING BILATERAL W/ARTURO ORIGINAL FROM: [address] [address] PROCEDURE FOR: SHARON WAYNE [address] [place] [address] [place] [address] Home: PID#: [id number] Exam#: [id number] : 1980 Age: 44 TO: ARNOLD CLEVELAND DO [address] [place] [address] Fax: NO FAX EXAMINATION: SCREENING DIGITAL BILATERAL [...] addition to annual mammographic screening per the [place] [employer]. BIRADS: MAMMOGRAM BI-RADS: 1: Negative RECALL: 1 year screening RECALL TYPE: mammo LETTER SENT: Normal BI-RADS 1 and 2 Interpreted by: Aliya Sewell Preliminary Report By: Aliya Sewell Electronically signed By Aliya Sewell Dictated Date: 12/04/2024 9:47:55 AM Prelim Date: 12/04/2024 9:51:09 AM Sign Date: 12/04/2024 9:51:09 AM Ordering Provider: ARNOLD CLEVELAND Order Entry Clerk: DELFINA JO RT(R)(M)(CT) letter sent: Normal BI-RADS 1 and 2 Mammogram BI-RADS: 1 Negative Normal [facility] [employer] Cytology Reporton 2024 [facility] [employer] Cytology Report . Pathology Reports Accession: Collected Date/Time: Received Date/Time: Pathologist: [id number] 11/14/2024 09:37 EST 11/14/2024 18:00 EST [facility] [employer] [facility] Report SPECIMEN: Specimen Description: Liquid Prep w/ HPV Specimen: Cervical/Endocervical Screening or Diagnostic: Screening RELEVANT HISTORY: LMP: menopausal SPECIMEN ADEQUACY: SATISFACTORY FOR EVALUATION Endocervical/Transforma tional zone component present INTERPRETATION/RESULTS: NEGATIVE FOR INTRAEPITHELIAL [...] Reports Accession: Collected Date/Time: Received Date/Time: Pathologist: [id number] 11/14/2024 09:37 EST 11/14/2024 18:00 EST COMMENT: This Pap Test was successfully processed and evaluated with the assistance of the [employer] ThinPrep Test Imaging System. Electronically Signed by Pathology report verified by [facility] Screened by: KK Electronically signed by Sasha PATEL (ASCP) Sign-Out Date: 11/17/2024 13:27 Performing Lab: [facility], [address] [place] [address] Pathology Dept Disclaimer The Pap test is a screening test for cervical cancer. As evidenced by published data, it is subject to both inherent false negative and false positive results. Your patient's results should be interpreted in context with pertinent clinical history including gynecological examination. Normal [facility] [employer] Cytology Report #[id number] [facility] [employer] Cytology Report #[id number] [facility] [employer] Cytology Report #[id number] [facility] [employer] Cytology Report #[id number] [facility] [employer] Cytology Report #[id number] [facility] [employer] Cytology Report #[id number] [facility] [employer] Cytology Report #[id number] [facility] [employer] Cytology Report #[id number] [facility] [employer] Cytology Report #[id number] [facility] HPVon 11-17-2024 HPV Interp Normal See Interp HPVN [facility] Comment on above: Order Comment: Order placed by AP_HPV_ORDER rule from [id number] Result Comment: High Risk HPV Typing: NEGATIVE [...] HPVN Performed By: #### H PV #### [place] [address] HPV Source Cervix Normal [facility] Comment on above: Order Comment: Order placed by AP_HPV_ORDER rule from [id number] Performed By: #### H PV #### [address] [address] [id number] DOrdered By: Joanie Cleveland on 11-16-2024 Vitamin D 25-Hydroxy 46.5 ng/mL [facility] Comment on above: Vitamin D 25(OH) Sta tus Range Deficiency <20 ng/mL (50nmol/L) Insufficiency 20 - 30 ng/mL (50 - 75 nmol/L) Sufficiency 30 - 100 ng/mL (75 - 250 nmol/L) Toxicity >100 ng/mL (>250 nmol/L) Albumin to globulin ratioOrd ered By: Arnold Cleveland on 11-16-2024 Albumin/Globulin [Mass ratio] 1.0 {ratio} 0.9-2.4 [facility] Bilirubin, totalOrdered By: Arnold Cleveland on 11-16-2024 Bilirubin [Mass/Vol] 0.60 mg/dL 0.20-1.00 [facility] Comment on above: For patients on eltr ombopag therapy, use of Dimension [place] TBIL is not recommended. Blood urea nitrogen (BUN)/cr eatinine ratioOrdered By: Arnold Cleveland on 11-16-2024 Urea nitrogen/Creatinine [Mass ratio] 18.5 mg/mg 10-20 [facility] Carbon dioxide measurementOr dered By: Arnold Cleveland on 11-16-2024 CO2 [Moles/Vol] 28.0 mmol/L 21.0-32.0 [facility] Chloride measurementOrdered By: Arnold Cleveland on 11-16-2024 Chloride [Moles/Vol] 106 mmol/L 98-107 [facility] Comprehensive Metabolic Prof ilon 11-16-2024 Albumin [Mass/Vol] 3.5 g/dL Normal 3.2-5.0 [facility] Comment on above: Performed By: #### L 453.9578 #### [facility] [address] [facility] [id number] ([address] Albumin/Globulin [Mass ratio] 1.0 {ratio} Normal 0.9-2.4 [facility] Comment on above: Performed By: #### L 161.7964 #### [facility] [address] [facility] [id number] (010 ALK P 79 U/L Normal 45-117 [facility] Comment on above: Performed By: #### L 045.2532 #### [facility] [address] [place], [address] ALT [Catalytic activity/Vol] 30 U/L Normal 13-56 [facility] Comment on above: Performed By: #### L 420.9520 #### [facility] [address] [place], [address] AST [Catalytic activity/Vol] 22 U/L Normal 15-37 [facility] Comment on above: Performed By: #### L [id number] #### [facility] [address] [place], [address] Bilirubin [Mass/Vol] 0.60 mg/dL Normal 0.20-1.00 [facility] Comment on above: Result Comment: For patients on eltrombopag therapy, use of Dimension [place] TBIL is not recommended. Performed By: #### L [id number] #### [facility] [address] [place], [address] BUN/CRE 18.5 RATIO Normal 10-20 [facility] Comment on above: Performed By: #### L [id number] #### [facility] [address] [place], [address] CA,Total 8.8 mg/dL Normal 8.5-10.1 [facility] Comment on above: Performed By: #### L [id number] #### [facility] [address] [place], [address] Chloride [Moles/Vol] 106 mmol/L Normal 98-107 [facility] Comment on above: Performed By: #### L [id number] #### [facility] [address] [place], [address] CO2 [Moles/Vol] 28.0 mmol/L Normal 21.0-32.0 [facility] Comment on above: Performed By: #### L 361.9520 #### [facility] [address] [place], [address] Creatinine [Mass/Vol] 0.81 mg/dL Normal 0.55-1.02 [facility] Comment on above: Result Comment: The validity of the calculated GFR GFRAA in patients over 70 years has not been determined. Clinical correlation is essential. Performed By: #### L 092.8020 #### [facility] [address] [place], [address] EST GFR - AA 98 mL/min Normal >60 [facility] Comment on above: Result Comment: Afri can [place] GFR Calc Performed By: #### L 685.4520 #### [facility] [address] [place], [address] GAP 3 Low 5-15 [facility] Comment on above: Performed By: #### L 255.8720 #### [facility] [address] [place], [address] GFR/1.73 sq M.predicted among non-blacks MDRD (S/P/Bld) [Vol rate/Area] 81 mL/min/{1.73_m2} Normal >60 [facility] Comment on above: Result Comment: Non- GFR Calc Performed By: #### L 699.2704 #### [facility] [address] [place], [address] Globulin (S) [Mass/Vol] 3.5 g/dL Normal 2.2-4.2 [facility] Comment on above: Performed By: #### L 715.4781 #### [facility] [address] [place], [address] Glucose [Mass/Vol] 92 mg/dL Normal 74-106 [facility] Comment on above: Performed By: #### L 152.3555 #### [facility] [address] [place], [address] Potassium [Moles/Vol] 4.3 mmol/L Normal 3.5-5.1 [facility] Comment on above: Performed By: #### L [id number] #### [facility] [address] [place], [place], [id number] Sodium [Moles/Vol] 137 mmol/L Normal 136-145 [facility] Comment on above: Performed By: #### L [id number] #### [facility] [address] [place], [address] T PROT 7.0 g/dL Normal 6.4-8.2 [facility] Comment on above: Performed By: #### L [id number] #### [facility] [address] [place], [place], [id number] Urea nitrogen [Mass/Vol] 15 mg/dL Normal 7-18 [facility] Comment on above: Performed By: #### L [id number] #### [facility] [address] [place], [address] Estimated glomerular filtrat ion rate (GFR) AmericanOrdered By: Arnold Cleveland on 11-16-2024 Estimated GFR (MDRD) Amer 98 mL/min >60 [facility] Comment on above: GFR Calc Glomerular filtration rate ( GFR) estimationOrdered By: Arnold Cleveland on 11-16-2024 Estimated GFR (MDRD) Non-Af Amer 81 mL/min >60 [facility] Comment on above: Non- GFR Calc Glucose measurementOrdered B y: Arnold Cleveland on 11-16-2024 Glucose [Mass/Vol] 92 mg/dL 74-106 [facility] High density lipoprotein (HD L) measurementOrdered By: Arnold Cleveland on 11-16-2024 Cholesterol in HDL [Mass/Vol] 74 mg/dL >40 [facility] Comment on above: The drugs N-Acetylcy steine and Metamizole may falsely depress this assay. Reference Range HDL <40 mg/dL Low HDL Cholesterol HDL >or= 60 mg/dL High HDL Cholesterol Laboratory - Chemistry and C hemistry - challengeOrdered By: Arnold Cleveland on 11-16-2024 AST [Catalytic activity/Vol] 22 U/L 15-37 [facility] Lipid Profileon 11-16-2024 Cholesterol [Mass/Vol] 255 mg/dL High 200 [facility] Comment on above: Result Comment: <200 mg/dL Desirable 200-240 mg/dL Borderline >240 mg/dL High Risk Performed By: #### L [id number] #### [facility] [address] [place], [address] Cholesterol in HDL [Mass/Vol] 74 mg/dL Normal [facility] Comment on above: Result Comment: The drugs N-Acetylcysteine and Metamizole may falsely depress this assay. Reference Range HDL <40 mg/dL Low HDL Cholesterol HDL >or= 60 mg/dL High HDL Cholesterol Performed By: #### L [id number] #### [facility] [address] [place], [address] Cholesterol in LDL [Mass/Vol] 160 mg/dL High 0-130 [facility] Comment on above: Performed By: #### L [id number] #### [facility] [address] [place], [address] Cholesterol in VLDL [Mass/Vol] 21 mg/dL Normal 5-40 [facility] Comment on above: Performed By: #### L [id number] #### [facility] [address] [place], [address] Triglyceride [Mass/Vol] 107 mg/dL Normal [facility] Comment on above: Result Comment: The drugs N-Acetylcysteine and Metamizole may falsely depress this assay. Serum Triglycerides Reference Interval Normal <150 mg/dL Borderline high 150 - 199 mg/dL High 200 - 499 mg/dL Very High > or = 500 mg/dL Performed By: #### L [id number] #### [facility] [address] [place], [address] Low density lipoprotein (LDL ) cholesterol measurementOrdered By: Arnold Cleveland on 11-16-2024 Cholesterol in LDL [Mass/Vol] 160 mg/dL High 0-130 [facility] Potassium measurementOrdered By: Arnold Cleveland on 11-16-2024 Potassium [Moles/Vol] 4.3 mmol/L 3.5-5.1 [facility] Serum anion gap measurementO rdered By: Arnold Cleveland on 11-16-2024 Anion gap [Moles/Vol] 3 mmol/L Low 5-15 [facility] Serum globulin measurementOr dered By: Arnold Cleveland on 11-16-2024 Globulin (S) [Mass/Vol] 3.5 g/dL 2.2-4.2 [facility] Serum or plasma alanine trevino otransferase (ALT) measurementOrdered By: Arnold Cleveland on 11-16-2024 ALT [Catalytic activity/Vol] 30 U/L 13-56 [facility] Serum or plasma albumin adelita urement (mass/volume)Ordered By: Arnold Cleveland on 11-16-2024 Albumin [Mass/Vol] 3.5 g/dL 3.2-5.0 [facility] Serum or plasma alkaline roshan sphatase measurementOrdered By: Arnold Cleveland on 11-16-2024 ALP [Catalytic activity/Vol] 79 U/L 45-117 [facility] Serum or plasma calcium adelita urement (mass/volume)Ordered By: Arnold Cleveland on 11-16-2024 Calcium [Mass/Vol] 8.8 mg/dL 8.5-10.1 [facility] Serum or plasma cholesterol measurement (mass/volume)Ordered By: Arnold Cleveland on 11-16-2024 Cholesterol [Mass/Vol] 255 mg/dL High <200 [facility] Comment on above: <200 mg/dL Desirable 200-240 mg/dL Borderline >240 mg/dL High Risk Serum or plasma creatinine m easurement (mass/volume)Ordered By: Arnold Cleveland on 11-16-2024 Creatinine [Mass/Vol] 0.81 mg/dL 0.55-1.02 [facility] Comment on above: The validity of the calculated GFR & GFRAA in patients over 70 years has not been determined. Clinical correlation is essential. Serum or plasma urea nitroge n measurement (mass/volume)Ordered By: Arnold Cleveland on 11-16-2024 Urea nitrogen [Mass/Vol] 15 mg/dL 7-18 [facility] Sodium levelOrdered By: Mark Cleveland on 11-16-2024 Sodium [Moles/Vol] 137 mmol/L 136-145 [facility] Total proteinOrdered By: Floyd Cleveland on 11-16-2024 Protein [Mass/Vol] 7.0 g/dL 6.4-8.2 [facility] Triglycerides measurementOrd ered By: Arnold Cleveland on 11-16-2024 Triglyceride [Mass/Vol] 107 mg/dL <199 [facility] Comment on above: The drugs N-Acetylcy steine and Metamizole may falsely depress this assay.Serum Triglycerides Reference Interval Normal <150 mg/dL Borderline high 150 - 199 mg/dL High 200 - 499 mg/dL Very High > or = 500 mg/dL Very low density lipoprotein (VLDL) cholesterol measurementOrdered By: Arnold Cleveland on 11-16-2024 VLDL Cholesterol 21 mg/dL 5-40 [facility] Vitamin D,25 Hydroxyon 11-16 Vitamin D 25-OH 46.5 ng/mL Normal [facility] Comment on above: Result Comment: Bernice min D 25(OH) Status Range Deficiency <20 ng/mL (50nmol/L) Insufficiency 20 - 30 ng/mL (50 - 75 nmol/L) Sufficiency 30 - 100 ng/mL (75 - 250 nmol/L) Toxicity >100 ng/mL (>250 nmol/L) Performed By: #### L 501.9520 #### [facility] [address], [place], [id number] LABORATORYOrdered By: Carroll Sanz on 11-14-2024 HPV [...] medical history in accordance with appropriate patient managementprocedures.NO TE: A negative result does not preclude the presence of HPV infection because resultsdepend on adequate specimen collection, absence of inhibitors and sufficientDNA to be detected. Normal See Interp HPVN Auto Viro/Sero SS Specimen source Nom (Unsp spec) Cervix (11/14/24 9:37 AM) Normal Auto Viro/Sero SS Sex Hormone-binding Globulin on 11-02-2024 SHBG 80.0 nmol/L Normal 24.6-122.0 [facility] Comment on above: Order Comment: N Result Comment: Perf ormed at: [address] [id number] Hall Coordinator: Roland Hedrick PhD, Phone: [phone] Performed at: [facility] [id number] Hall Coordinator: William Gonzalez MD, Phone: [phone] Performed By: #### L 3100.5060, L3300.1750, L3100.5310 #### [facility] [address] [place], [address] Testosterone, Total / Freeon 11-02-2024 TESTOSTER,FREE 0.21 ng/dL Normal 0.10-0.85 [facility] Comment on above: Order Comment: N Performed By: #### L 3100.5060, L3300.1750, L3100.5310 #### [facility] [address] [place], [address] TESTOSTER,TOTAL 10 ng/dL Normal 4-50 [facility] Comment on above: Order Comment: N Performed By: #### L 3100.5060, L3300.1750, L3100.5310 #### [facility] [address] [place], [address] TESTOSTERONE,%F 2.14 Normal 0.50-2.80 [facility] Comment on above: Order Comment: N Performed By: #### L 3100.5060, L3300.1750, L3100.5310 #### [facility] [address] [place], [place], [id number] Estradiolon 10-25-2024 ESTRADIOL 128.4 pg/mL Normal [facility] Comment on above: Result Comment: NORM AL [...] ESTRADIOL CONCENTRATION. Performed By: #### L 3100.5060, L3300.1750, L3100.5310 #### [facility] [address] [place], [place], [address] Thyroid Stim Hormone (TSH)on 10-19-2024 TSH 3.020 uIU/mL Normal 0.358-3.740 [facility] Comment on above: Performed By: #### L 501.9520 #### [facility] [address] [place], [place], [address] CNOVon 06-16-2024 CNOV Office Visit ([facility]STR ) SHARON WAYNE ([id number]) 1980 F Date Time Provider Department 06/16/24 7:45 AM PORFIRIOLINSEYBARRINGTON [facility] During your visit today, we recorded the following information about you: Temperature Pulse Respiration Blood pressure 97.3 degrees 68/minute 18/minute 108/78 Weight 81.3 kg PorfirioLinseyBarringtonSHASTA 06/16/2024 9:38 AM Signed Subjective HPI HPI [...] ACETONIDE 0.1 % TOPICAL CREAM Barrington Monroy APRN.PACKING SUPERVISOR Allergies As of Date: 06/16/2024 Noted Allergy [...] Status:Closed by BARRINGTON MONROY on 06/16/24 Normal [facility] 12-22-2023 Iron [Mass/Vol] 125 ug/dL Normal 50-170 Pending Sale To [facility] ([place]) Comment on above: Performed By: #### F E #### [address] [address] [place] MAMMOGRAM SCREENING BILAT ERAL W/TOMOon 11-18-2023 MA [...] [place] Amended BI-RADS: 1 Negative ORIGINAL FROM: [address] [address] PROCEDURE FOR: SHARON WAYNE [address] [place] [address] [place] [address] Home: PID#: [id number] Exam#: [id number] : 1980 Age: 43 TO: ARNOLD C[place]AND DO [address] [place] [id number] Fax: NO FAX EXAMINATION: SCREENING DIGITAL BILATERAL [...] addition to annual mammographic screening per the [place] [employer]. BIRADS: MAMMOGRAM BI-RADS: 1: Negative RECALL: 1 year screening RECALL TYPE: mammo LETTER SENT: Normal BI-RADS 1 and 2 Interpreted by: Aliya Sewell Preliminary Report By: Aliya Sewell Electronically signed By Aliya Sewell Dictated Date: 11/15/2023 8:09:25 AM Prelim Date: 11/15/2023 8:17:58 AM Sign Date: 11/15/2023 8:17:58 AM Ordering Provider: ARNOLD C[place] Order Entry Clerk: CHARLENE MARX RT(R)(M)(CT) MACHINE BUILDER letter sent: Normal BI-RADS 1 and 2 Mammogram BI-RADS: 1 Negative Normal Pending Sale To [facility] ([place]) No Panel InformationOrdered By: Charlene Mitchlel on 10-06-2023 Thyroid Stimulating Hormone (TSH) 2.05 uIU/mL 0.358-3.74 [facility] Basophil percentageOrdered B y: Arnold Cleveland on 08-12-2023 Bilirubin [Mass/Vol] 0.40 mg/dL 0.20-1.00 [facility] Comment on above: For patients on eltr ombopag therapy, use of Dimension [place] TBIL is not recommended. Chloride [Moles/Vol] 111 mmol/L 98-107 [facility] Cholesterol [Mass/Vol] 214 mg/dL <200 [facility] Comment on above: <200 mg/dL Desirable 200-240 mg/dL Borderline >240 mg/dL High Risk Glucose [Mass/Vol] 102 mg/dL 74-106 [facility] Comment on above: Fasting Glucose resu lt from 100 to 125 mg/dL suggests IMPAIRED HOMEOSTASIS per A.D.A. criteria. Potassium [Moles/Vol] 4.4 mmol/L 3.5-5.1 [facility] Protein [Mass/Vol] 6.8 g/dL 6.4-8.2 [facility] Sodium [Moles/Vol] 140 mmol/L 136-145 [facility] Triglyceride [Mass/Vol] 103 mg/dL <199 [facility] Comment on above: The drugs N-Acetylcy steine and Metamizole may falsely depress this assay.Serum Triglycerides Reference Interval Normal <150 mg/dL Borderline high 150 - 199 mg/dL High 200 - 499 mg/dL Very High > or = 500 mg/dL Laboratory - Chemistry and C hemistry - challengeOrdered By: Arnold Cleveland on 08-12-2023 ALP [Catalytic activity/Vol] 62 U/L 45-117 [facility] ALT [Catalytic activity/Vol] 32 U/L 13-56 [facility] CO2 [Moles/Vol] 26.0 mmol/L 21.0-32.0 [facility] Globulin (S) [Mass/Vol] 3.3 g/dL 2.2-4.2 [facility] Urea nitrogen/Creatinine [Mass ratio] 19.9 mg/mg 10-20 [facility] No Panel InformationOrdered By: Arnold Cleveland on 08-12-2023 Estimated GFR (MDRD) Amer 99 mL/min >60 [facility] Comment on above: GFR Calc Estimated GFR (MDRD) Non-Af Amer 82 mL/min >60 [facility] Comment on above: Non- GFR Calc Serum or plasma albumin adelita urement (mass/volume)Ordered By: Arnold Cleveland on 08-12-2023 Albumin [Mass/Vol] 3.5 g/dL 3.2-5.0 [facility] Serum or plasma albumin/glob ulin mass ratioOrdered By: Arnold Cleveland on 08-12-2023 Albumin/Globulin [Mass ratio] 1.1 {ratio} 0.9-2.4 [facility] Serum or plasma calcium adelita urement (mass/volume)Ordered By: Arnold Cleveland on 08-12-2023 Calcium [Mass/Vol] 8.7 mg/dL 8.5-10.1 [facility] Serum or plasma cholesterol in HDL measurement (mass/volume)Ordered By: Arnold Cleveland on 08-12-2023 Cholesterol in HDL [Mass/Vol] 62 mg/dL >40 [facility] Comment on above: The drugs N-Acetylcy steine and Metamizole may falsely depress this assay. Reference Range HDL <40 mg/dL Low HDL Cholesterol HDL >or= 60 mg/dL High HDL Cholesterol Serum or plasma cholesterol in VLDL measurement (mass/volume)Ordered By: Arnold Cleveland on 08-12-2023 Cholesterol in VLDL [Mass/Vol] 21 mg/dL 5-40 [facility] Serum or plasma creatinine m easurement (mass/volume)Ordered By: Arnold Cleveland on 08-12-2023 Creatinine [Mass/Vol] 0.80 mg/dL 0.55-1.02 [facility] Comment on above: The validity of the calculated GFR & GFRAA in patients over 70 years has not been determined. Clinical correlation is essential. Serum or plasma low density lipoprotein (LDL) cholesterol measurement (mass/volume)Ordered By: Arnold Cleveland on 08-12-2023 Cholesterol in LDL [Mass/Vol] 131 mg/dL 0-130 [facility] Serum or plasma urea nitroge n measurement (mass/volume)Ordered By: Arnold Cleveland on 08-12-2023 Urea nitrogen [Mass/Vol] 16 mg/dL 7-18 [facility] Thin prep Papanicolaou smear with manual screeningOrdered By: Arnold Cleveland on 08-12-2023 Thin prep Papanicolaou smear with manual screening 15 U/L 15-37 [facility] Thin prep Papanicolaou smear with manual screening 3 5-15 [facility] Basophil percentageOrdered B y: Dr. Mitchell on 04-08-2023 Chloride [Moles/Vol] 108 mmol/L 98-107 [facility] Glucose [Mass/Vol] 97 mg/dL 74-106 [facility] Potassium [Moles/Vol] 4.3 mmol/L 3.5-5.1 [facility] Sodium [Moles/Vol] 141 mmol/L 136-145 [facility] Laboratory - Chemistry and C hemistry - challengeOrdered By: Dr. Micthell on 04-08-2023 CO2 [Moles/Vol] 29.0 mmol/L 21.0-32.0 [facility] Urea nitrogen/Creatinine [Mass ratio] 19.0 mg/mg 10-20 [facility] No Panel InformationOrdered By: Dr. Mitchell on 04-08-2023 Estimated GFR (MDRD) Amer 94 mL/min >60 [facility] Comment on above: GFR Calc Estimated GFR (MDRD) Non-Af Amer 78 mL/min >60 [facility] Comment on above: Non- GFR Calc Thyroid Stimulating Hormone (TSH) 1.98 uIU/mL 0.358-3.74 [facility] Serum or plasma calcium adelita urement (mass/volume)Ordered By: Dr. Mitchell on 04-08-2023 Calcium [Mass/Vol] 8.7 mg/dL 8.5-10.1 [facility] Serum or plasma creatinine m easurement (mass/volume)Ordered By: Dr. Mitchell on 04-08-2023 Creatinine [Mass/Vol] 0.84 mg/dL 0.55-1.02 [facility] Comment on above: The validity of the calculated GFR & GFRAA in patients over 70 years has not been determined. Clinical correlation is essential. Serum or plasma urea nitroge n measurement (mass/volume)Ordered By: Dr. Mitchell on 04-08-2023 Urea nitrogen [Mass/Vol] 16 mg/dL 7-18 [facility] Thin prep Papanicolaou smear with manual screeningOrdered By: Dr. Mitchell on 04-08-2023 Thin prep Papanicolaou smear with manual screening 4 5-15 [facility] Laboratory - Chemistry and C hemistry - challengeon 05-05-2022 Cobalamin (Vitamin B12) [Mass/Vol] 1319 pg/mL 211-911 [facility] Work Phone: Free T4 [Mass/Vol] 1.11 ng/dL 0.76-1.46 [facility] Work Phone: No Panel Informationon 05-05 Free Triiodothyronine (T3) pg/dL 2.4 pg/mL 2.18-3.98 [facility] Work Phone: Homocysteine 5.8 umol/L 3.2-10.7 [facility] Work Phone: Thyroid Stimulating Hormone (TSH) 1.09 uIU/mL 0.358-3.74 [facility] Work Phone: Vitamin D 25-Hydroxy 38.6 ng/mL [facility] Work Phone: Comment on above: Vitamin D 25(OH) Sta tus Range Deficiency <20 ng/mL (50nmol/L) Insufficiency 20 - 30 ng/mL (50 - 75 nmol/L) Sufficiency 30 - 100 ng/mL (75 - 250 nmol/L) Toxicity >100 ng/mL (>250 nmol/L) Serum or plasma folate measu rement (mass/volume)on 05-05-2022 Folate [Mass/Vol] 10.80 ng/mL 3.1-55.4 [facility] Work Phone: No Panel Informationon 01-09 Thyroid Stimulating Hormone (TSH) 2.16 uIU/mL 0.358-3.74 [facility] Work Phone: No Panel Informationon 10-29 Culture Urine 50,000 - 100,000 cfu /ml Mixed growth consistent with normal urogenital [place]. [facility] Vital Signs Date Time Vital Sign Value Performing Clinician Darcy vora 06-16-2024 07:48-0400 Body temperature 97.3 [degF] Barrington Monroy APRN.PACKING SUPERVISOR Work Phone: [facility] 06-16-2024 07:48-0400 Body weight 81.3 kg Barrington Monroy APRN.PACKING SUPERVISOR Work Phone: [facility] 06-16-2024 07:48-0400 Diastolic blood pressure 78 mm[Hg] Barrington Monroy BUSINESS LEADER.PACKING SUPERVISOR Work Phone: [facility] 06-16-2024 07:48-0400 Heart rate 68 /min Barrington Monroy BUSINESS LEADER.PACKING SUPERVISOR Work Phone: [facility] 06-16-2024 07:48-0400 Respiratory rate 18 /min Barrington Monroy BUSINESS LEADER.PACKING SUPERVISOR Work Phone: [facility] 06-16-2024 07:48-0400 SaO2% (BldA) [Mass fraction] 99 % Barrington Monroy BUSINESS LEADER.PACKING SUPERVISOR Work Phone: [facility] 06-16-2024 07:48-0400 Systolic blood pressure 108 mm[Hg] Barrington Monroy BUSINESS LEADER.PACKING SUPERVISOR Work Phone: [facility] 11-12-2023 09:07-0500 Body temperature 98.2 [degF] Dr. Arnold Cleveland Work Phone: [facility] 11-12-2023 09:07-0500 Diastolic blood pressure 59 mm[Hg] Dr. Arnold Cleveland Work Phone: [facility] 11-12-2023 09:07-0500 Heart rate 59 /min Dr. Arnold Cleveland Work Phone: [facility] 11-12-2023 09:07-0500 Respiratory rate 18 /min Dr. Arnold Cleveland Work Phone: [facility] 11-12-2023 09:07-0500 SaO2% (BldA) [Mass fraction] 98 % Dr. Arnold Cleveland Work Phone: [facility] 11-12-2023 09:07-0500 Systolic blood pressure 87 mm[Hg] Dr. Arnold Cleveland Work Phone: [facility] 11-12-2023 07:51-0500 Body height 170.[address] Arnold Cleveland Work Phone: [facility] 11-12-2023 07:51-0500 Body mass index (BMI) [Ratio] 27.6 kg/m2 Dr. Arnold Cleveland Work Phone: [facility] 11-12-2023 07:51-0500 Body weight [address] Arnold Cleveland Work Phone: [facility] 11-03-2023 11:39-0500 Body mass index (BMI) [Ratio] 26.6 kg/m2 Dr. Arnold Cleveland Work Phone: [facility] 11-03-2023 11:39-0500 Body weight 77.[address] Arnold Cleveland Work Phone: [facility] 05-16-2022 18:52-0400 Respiratory rate 16 /min [facility] Work Phone: 05-16-2022 17:04-0400 Body height 170.18 cm [facility] Work Phone: 05-16-2022 17:04-0400 Body mass index (BMI) [Ratio] 28.1 kg/m2 [facility] Work Phone: 05-16-2022 17:04-0400 Body temperature 97.9 [degF] [facility] Work Phone: 05-16-2022 17:04-0400 Body weight 81.64 kg [facility] Work Phone: 05-16-2022 17:04-0400 Diastolic blood pressure 80 mm[Hg] [facility] Work Phone: 05-16-2022 17:04-0400 Heart rate 95 /min [facility] Work Phone: 05-16-2022 17:04-0400 SaO2% (BldA) [Mass fraction] 98 % [facility] Work Phone: 05-16-2022 17:04-0400 Systolic blood pressure 94 mm[Hg] [facility] Work Phone: Encounters Encounter Date Encounter Type Care Provider Facility Start: 07-10-2025 End: 07-10-[address] Arnold Cleveland DO Work Phone: -Laboratory Start: 07-10-2025 End: 07-10-[address] Arnold Cleveland DO Work Phone: -Laboratory Work Phone: Start: 07-10-2025 End: 07-10-2025 ambulatory [facility] Facility:[facility] Start: 04-24-2025 End: 04-24-[address] Arnold Cleveland DO Work Phone: [facility] Work Phone: Start: 04-24-2025 End: 04-24-[address] Charlene Mitchell MD -Laboratory Work Phone: Start: 04-24-2025 End: 04-24-2025 ambulatory Arnold Cleveland Facility:[facility] Start: 02-21-2025 End: 02-21-[address] Arnold Cleveland DO Work Phone: [facility] Work Phone: Start: 02-21-2025 End: 02-21-[address] Arnold Cleveland DO Work Phone: -Laboratory Work Phone: Start: 02-21-2025 End: 02-21-2025 ambulatory [facility] Facility:[facility] Start: 12-19-2024 End: 12-19-[address] Charlene Mitchell MD -Laboratory Work Phone: Start: 12-19-2024 End: 12-19-2024 ambulatory Charlene Mitchell Facility:[facility] Start: 12-05-2024 Encounter for gynecological examination (general) (routine) without abnormal findings Arnold Cleveland [facility] Start: 11-30-2024 End: 11-30-2024 ambulatory ARNOLD CLEVELAND DO Facility:[facility] Start: 11-30-2024 End: 11-30-2024 Patient encounter procedure ARNOLD CLEVELAND DO [facility] Start: 11-16-2024 End: 11-16-[address] Arnold Cleveland DO -Laboratory Work Phone: Start: 11-16-2024 End: 11-16-2024 ambulatory Arnold Cleveland Facility:[facility] Start: 11-14-2024 End: 11-18-2024 ambulatory ARNOLD CLEVELAND DO Facility[place] Start: 11-14-2024 End: 11-18-2024 Encounter for gynecological examination (general) (routine) without abnormal findings ARNOLD CLEVELAND DO Facility:[facility] Start: 11-14-2024 End: 11-18-2024 Outreach Lab ARNOLD CLEVELAND DO [facility] Start: 10-25-2024 End: 10-25-2024 ambulatory CONCHA RAJAN Facility:[facility] Start: 10-19-2024 End: 10-19-2024 ambulatory Charlene Irvin Facility:[facility] Start: 06-16-2024 End: 06-16-2024 ambulatory SHANNASAMY JUSTICE Facility:[facility] Start: 06-16-2024 End: 06-16-2024 Patient encounter procedure Barrington Monroy APRN.PACKING SUPERVISOR Work Phone: [facility] Comment on above: Rhus dermatitis (Meli tamia Dx) Start: 12-22-2023 End: 12-23-2023 ambulatory ARNOLD CLEVELAND DO Facility:[facility] Start: 11-15-2023 End: 11-16-2023 ambulatory ARNOLD CLEVELAND DO Facility:[facility] Start: 11-15-2023 End: 11-15-2023 Patient encounter procedure ARNOLD CLEVELAND DO [facility] Start: 11-12-2023 Non-patient / Non-visit Dr. Derek Cleveland Work Phone: [facility] Start: 11-12-2023 End: 11-12-2023 Admission to same day surgery center Dr. Arnold Cleveland Work Phone: [facility]-Endoscopy Work Phone: Start: 11-12-2023 End: 11-12-[address] Arnold Cleveland Work Phone: [facility] Work Phone: Start: 11-03-2023 Non-patient / Non-visit Dr. Derek Cleveland Work Phone: [facility] Work Phone: Start: 10-06-2023 End: 10-06-2023 ambulatory [facility] Work Phone: Start: 10-06-2023 End: 10-06-2023 Patient encounter procedure [facility]-Laboratory Work Phone: Start: 09-29-2023 ambulatory ARNOLD CLEVELAND DO Facil ity:B Start: 09-24-2023 End: 09-25-2023 ambulatory ARNOLD CLEVELAND DO Facility:[facility] Start: 09-24-2023 End: 09-24-2023 Patient encounter procedure ARNOLD CLEVELAND DO [facility] Start: 08-12-2023 End: 08-12-2023 Patient encounter procedure [facility]-Labor[facility] Work Phone: Start: 04-08-2023 End: 04-08-2023 ambulatory [facility] Work Phone: Start: 04-08-2023 End: 04-08-2023 Patient encounter procedure [facility]-Laboratory Start: 11-09-2022 End: 11-09-2022 Patient encounter procedure ARNOLD CLEVELAND DO [facility] Start: 05-16-2022 End: 05-16-2022 Emergency department patient visit [facility]-Emergency Department Start: 05-05-2022 End: 05-05-2022 Patient encounter procedure [facility]-Laboratory Start: 01-09-2022 End: 01-09-2022 Patient encounter procedure [facility]Labor[facility] Start: 10-29-2021 End: 11-02-2021 Outreach Lab KARIN SNYDER BUSINESS LEADER-PACKING SUPERVISOR [facility] Start: 05-20-2021 End: 05-20-2021 Transcribe Orders Lawanda Kapadia MA [facility] Comment on above: Thyroid nodule (Prim ra Dx) Procedures Date Procedure Procedure Detail Performing Clinician Start: 11-12-[address] Christy Cleveland Work Phone: Start: 12-22-2018 Date of last papanic olaou test (observable entity) KARIN CLAUDIO BUSINESS LEADER-PACKING SUPERVISOR Start: 01-05-2017 Hysteroscopy KARIN CLAUDIO BUSINESS LEADERChasing SavingsPACKING SUPERVISOR Colonoscopy KARIN CLAUDIO BUSINESS LEADER -PACKING SUPERVISOR Destructive procedure KARINBirgit HENDERSON BUSINESS LEADERAlphatec Spine Comment on above: [facility] Dilation and curettage KARIN SNYDER BUSINESS LEADERChasing SavingsPACKING SUPERVISOR Endoscopy of upper gastrointestinal tract and removal of foreign body from esophagus KARIN FISHERS BUSINESS LEADER-PACKING SUPERVISOR Laser assisted in si tu keratomileusis KARIN FISHERS BUSINESS LEADER-PACKING SUPERVISOR Comment on above: OU Structure of wisdom tooth (body structure) KARIN FISHERS BUSINESS LEADER-PACKING SUPERVISOR Tonsillectomy KARIN FISHERS APR N-PACKING SUPERVISOR Plan of Treatment Date Care Activity Detail Author Start: 07-09-2024 Influenza vaccination Influenza Vaccine (#1) [facility] Start: 04-06-2024 Urine microalbumin profile DTaP,Tdap,Td Vaccine (2 - Td or Tdap) [facility] Start: 11-12-2023 Patient discharge [facility] Start: 07-09-2023 Covid-19 Vaccine ( season) Covid-19 Vaccine () [facility] Start: 2023 Diabetes Screening Diabetes Screening [facility] Start: 2023 Lipid panel Lipid Screening [facility] Start: 2023 Screening for malignant neoplasm of colon [facility] Start: 10-17-2021 End: 10-17-2021 Patient encounter procedure 10/17/2021 Office Visit Endocrinology Trever Day, PACKING SUPERVISOR [address] [place] [address] [phone] [facility] [place] Start: 07-09-2021 Influenza vaccination Sequential Influenza Vaccine (#1) [facility] Start: 2018 Screening for malignant neoplasm of breast Mammogram Screening [facility] Start: 2018 Screening mammography Mammogram [facility] Start: 1999 Screening for malignant neoplasm of cervix Cervical Cancer Screening [facility] Start: 1997 Hepatitis B Vaccine (1 of 3 - 19+ 3-dose series) Hepatitis B Vaccine (1 of 3 - 19+ 3-dose series) [facility] Start: 1996 Anxiety Screening Anxiety Screening [facility] Start: 1996 Depression Screening Depression Screening [facility] Start: 1996 Hepatitis C screening Hepatitis C Screening [facility] Start: 1996 HIV screening HIV Screening [facility] Start: 1993 HIV screening HIV Screening [facility] Start: 1990 COVID-19 Vaccine (1) COVID-19 Vaccine (1) [facility] Start: 1990 Depression screening using PHQ-9 (Patient Health Questionnaire 9) score Depression Screening (PHQ9) [facility] Start: 1981 History and physical examination, annual for health maintenance Wellness Visit [facility] Start: 1978 Screening for malignant neoplasm of cervix Pap Smear [facility] Start: 1978 Tetanus vaccination Tetanus: Every [address] [facility] Colonoscopy [facility] Patient Education ED Back Pain ( Acute or Chronic) ED Sciatica [facility] Work Phone: Patient referral [facility] Work Phone: Serum testosterone measurement [facility] Sex hormone binding globulin [Moles/volume] in Serum or Plasma [facility] Testosterone Free [Mass/volume] in Serum or Plasma [facility] Testosterone measurement [facility] Immunizations Immunization Date Immunization Notes Care Provider Fa cility 11-14-2024 tetanus toxoid, redu luiza diphtheria toxoid, and acellular pertussis vaccine, adsorbed; Translations: [Boostrix (Tdap)] ARNOLD CLEVELAND DO [facility] 07-26-2022 influenza virus vaccine, unspecified formulation ARNOLD CLEVELAND DO [facility] 10-11-2021 SARS-CoV-2 mRNA (tozinameran) vaccine ARNOLD CLEVELAND DO [facility] 02-27-2021 SARS-CoV-2 (COVID-19 ) mRNA-1273 vaccine ARNOLD CLEVELAND DO [facility] Comment on above: Result Comment: 2021: TPV40 01-30-2021 SARS-CoV-2 (COVID-19 ) mRNA-1273 vaccine KARIN SNYDER BUSINESS LEADERAlphatec Spine [facility] Comment on above: Result Comment: 2020: TPV40 08-07-2020 influenza, injectabl e, quadrivalent, preservative free; Translations: [Fluarix PF Quadrivalent ] KARIN SNYDER BUSINESS LEADERAlphatec Spine [facility] 04-06-2014 tetanus toxoid, redu luiza diphtheria toxoid, and acellular pertussis vaccine, adsorbed KARIN SNYDER BUSINESS LEADERAlphatec Spine [facility] Payers Date Payer Category Payer Self-pay [id number] 2022 Unknown [id number] 2022 Unknown [id number] 2011 Private Health Insurance FLORENCIONA Donna PURDYA HMO/NTWK/OACCESS/OA+/PO S [id number] 2011-Present [id number] 1978 Unknown [id number]. 627 1978 Unknown [id number] .[id number]. 627 1978 Unknown [id number] ..[id number]. 627 1978 Unknown [id number] .[id number]. 627 1978 Unknown [id number] .[id number]. 627 1978 Unknown [id number]. 627 Private Health Insurance [id number] Unknown [id number]. 462 Unknown [id number]. 462 Unknown [id number] [id number]. 462 Unknown [id number]. 462 Unknown [id number] [id number]. 462 Unknown [id number] [id number]. 462 Unknown [id number]. 462 Social History Date Type Detail Facility Tobacco smoking stat us NHIS Unknown if ever smoked [facility] Start: 1980 Sex Assigned At Not on file O [facility] Start: 11-07-2019 End: 06-27-2024 Never smoked tobacco (finding) [facility] Start: 1980 Sex Assigned At Female A [facility] Start: 12-15-2019 End: 11-12-2023 Tobacco smoking status ALIS Unknown if ever smoked [facility] Start: 06-16-2024 Tobacco use and exposure Smokeless tobacco non-user [facility] Start: 06-16-2024 History of Social function [facility] Start: 06-16-2024 Tobacco use panel [facility] Sexual Orientation [facility] ostal [facility] Start: 05-03-2019 End: 02-26-2025 Sex Female (finding) [facility] NEGATED: Highlighted row [facility] Goals Date Patient Goal Desired Activity /State Mental Status Date Assessment Result Facility 11-12-2023 Cognitive function Drowsy [facility] Work Phone: Clinical Notes 04-28-2021 to 11-14-2024 LaboratoryRadiologyLabBarrington Leiva APRN.PACKING SUPERVISOR - 06/16/2024 7:52 AM EDTLaboratoryLaboratory Note Date & Type Note Facility 11-14-2024 Evaluation + Plan note Future Scheduled TestsLipid Profile 1/7/25Vitamin D Level 11/14/24Complete Metabolic Panel 11/14/24MA Mammo Screening Bilateral w/ Arturo 11/14/24 [facility] 11-14-2024 Evaluation + Plan note Future Scheduled TestsLipid Profile 11/14/24Vitamin D Level 11/14/24Complete Metabolic Panel 11/14/24 [facility] 06-16-2024 Note HNO ID: [id number] Author: BARRINGTON MONROY APRN.PACKING SUPERVISOR Service: ? Author Type: Nurse Practitioner Type: [...] % TOPICAL CREAM Barrington Monroy APRN.[facility] 06-16-2024 History of Present illness Narrative Images [...] ACETONIDE 0.1 % TOPICAL CREAM Barrington Monroy APRN.PACKING SUPERVISOR documented in this encounter [facility] 11-12-2023 Procedure note [facility] 11-12-2023 Procedure note [facility] 04-28-2021 Evaluation + Plan note Future Scheduled TestsThyroid Antibodies 04/28/21Thyroid Stimulating Hormone 06/23/21Lipid Profile 06/23/21Vitamin D Level 06/23/21Complete Metabolic Panel 06/23/21 [facility] Evaluation + Plan note Future Appointments Appointment Date:10/26/2023 09:00:00 AM Scheduled Provider:ARNOLD CLEVELAND DO Location:[facility] Appointment Type: Wellness Annual Future Scheduled TestsLipid Profile 10/27/22Hepatitis C Antibody IgG 10/27/22Vitamin D Level 10/27/22Complete Metabolic Panel 10/27/22 [facility] Evaluation + Plan note Future Appointments Appointment Date:10/26/2023 09:00:00 AM Scheduled Provider:ARNOLD CLEVELAND DO Location:[facility] Appointment Type: Wellness Annual [facility] Evaluation note Diagnosis Thyroid nodule- Primary Nontoxic uninodular goiter documented [facility] assessment information availableWNationwide [facility] Work Phone: Evaluation note* Diagnosis Onset Date Resolution Status Encounter for screening for malignant neoplasm of colo n acute [facility] Work Phone: Evaluation note* Diagnosis Rhus dermatitis- Primary Contact dermatitis and other eczema due to plants (except food) documented in this encounter [facility] Author Raghavendra Barry [facility] November 12, 2023 8:21am Note Date/Time November 12, 2023 8: 21am [facility] Medical Records Department [address] [place] [address] History & Physical Exam 11/12/23 08 MR#: [id number] Acct: [id number] Name: SHARON WAYNE Rep #:[id number] : 1980 43 From: Raghavendra parsons MD PCP: Dr. Arnold Cleveland, DO Status:REG [facility] Location: EN HPI - General HPI Narrative SHARON WAYNE, is a 43 F who presents for screening colonoscopy. Patient said her last colonoscopy was 20 years ago. She denies any abdominal pain or blood in the stool. She is not on blood thinners. She has no family history of coloncancer. [facility] Medical History (Updated 11/10/23 @ 14:10 by [...] 11/03/23 [History Last Taken Unknown] glucosamine 375 bs-papwhkchp-ygv no1 500 mg-C 15 mg-mitchell 0.5 mg tablet 1 tab PO DAILY 11/03/23 [History Last Taken Unknown] magnesium oxide 250 mg PO DAILY 11/03/23 [History Last Taken Unknown] naproxen 500 mg-esomeprazole 20 mg tablet,immediate and delay release (Vimovo) 1tab PO BID PRN pain 11/03/23 [History Last Taken Unknown] nitrofurantoin macrocrystal 50 mg capsule 50 mg PO DAILY PRN After [place] 11/03/23 [History Last Taken Unknown] cholecalciferol (vitamin [...] Drainage Discharge Is Pt Admitted From a Half-Way, or a Assisted: No After D/C, Where Do you Plan [...] proceed with procedure. Raghavendra Barry MD Pager: [facility] [address] [place] [address], [address] [place] [address] Office: Surgery Risks - Colonoscopy Risks Include but are not Limited To: Risks include but are not limited to: Bleeding, perforation requiring further surgery, inability to complete colonoscopy requiring barium enema. 11/12/23 0821 <Electronically signed by Raghavendra Barry MD> Cosigner Signature (if applicable): CC: Dr. Raghavendra Barry MD; Dr. Arnold Cleveland, DO~ Signed [facility] Work Phone: Hospital course Narrative No data available for this section [facility] Hospital Discharge instructions No data available for this section [facility] Progress note No data available for this section [facility] Reason for referral (narrative)No reason for referral information availableWNationwide Children's Hospital Work Phone: Reason for Referral Status Reason Specialty Diagnoses / Procedures Referred By Contact Referred To Contact Authorized Specialty Services Required/Patien t's Best Interest Endocrinology Diagnoses Thyroid nodule System, Provider Not In Pierre, Olivia Goodson MD [address] [place], [place] [address] [address] Advance Directives Documents on File Type Date 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 Advance Directives and Livin g Will 05/20/2021 12:00 AM Advance Directive Response Recorded Date/ Time Living Will Yes June 10, 2019 6:20pm Power of Packing House Supervisor Yes June 10 6:20pm Advance Directive Response Recorded Date/ Time Name of Medical Power of Packing House Supervisor FLIP WAYNE May 16, 2022 5:54pm Living Will Yes May 16, 2022 5 :54pm Power of Packing House Supervisor Yes May 16, 2022 5:54pm Advance Directive Response Recorded Date/ Time Living Will Yes May 16, 2022 5 :54pm Power of Packing House Supervisor Yes May 16, 2022 5:54pm Advance Directive Response Recorded Date/ Time Living Will Yes May 16, 2022 4 :54pm Power of Packing House Supervisor Yes May 16, 2022 4:54pm Advance Directive Response Recorded Date/ Time Name of Medical Power of Packing House Supervisor FLIP WAYNE November 10, 2023 2:06pm Living Will Yes November 10 2:06pm Power of Packing House Supervisor Yes November 10, 024 2:06pm Chief Complaint and Reason for Visit Chief Complaint BACK Chief Complaint NONTOXIC MULTINODULA R GOITER Chief Complaint Amb Documentation Reason for Visit Encounter for screen ing for malignant neoplasm of colon Chief Complaint Admit Date LABS July 10, 2025 6:04am Summary Purpose Family History No Family History Records Found Additional Source Comments Goals (unrecognized section and content) Goals may be documented in a n alternate section Care Team (unrecognized sect ion and content) Care Team Personnel Name: CHARLENE MITCHELL MD Position: P3 Physician - Endocrinology Member Role: Teacher Of The Deaf/Hard Of Hearing Address: Address: [facility] [address] [place] [address] Name: ARNOLD CLEVELAND DO Position: P4 Physician - Primary Care Member Role: Primary Care Physician Address: Address: [address] [place] [address] Physicians [place], [place] [address] Care Team Related Persons Name: FLIP WAYNE Address: Home [address] [place], [place] [id number] [place] Name: STACY WAYNE Address: [address] [place], [place] [id number] Address: [address] [place], [place] [id number] Care Teams (unrecognized sec tion and content) Team Status: Active Member Role Status Dates Sienna Ballard DIE CAST DIE MAKER, DIE CAST DIE MAKER-C Family Provider Active Dr. Arnold Cleveland DO [...] Cleveland DO Primary Care Provider Active Yessica Porfirio Attending Provider Active Team Status: Active Member Role Status Dates Dr. Arnold Cleveland DO Primary Care Provider, Referri ng Provider Active Dr. Raghavendra Barry MD Attending Provider, Other Provider Active Team Status: Inactive Member Role Status Dates Dr. Arnold Cleveland DO Primary Care Provider, Referri ng Provider Active Dr. Raghavendra Barry MD Attending Provider Active [place] Relationship Specialty Start Date End Date Shanna Justice DO [address] [facility] [place] [address] PCP - General Internal Medicine 06/16/24 Team [...] April 24, 2025 End: April 24, 2025 Team Status: Active Member Role/Relationship Status Dates Dr. Arnold Cleveland DO Primary care physician Active Team Status: Inactive Member Role/Relationship Status Dates Dr. Arnold Cleveland DO Primary care physician Active Start: April 24, 2025 End: April 24, 2025 Dr. Charlene Mitchell MD Attending physician Active Start: April 24, 2025 End: April 24, 2025 Dr. Charlene Mitchell MD Referring Provider Active Start: April 24, 2025 End: April 24, 2025 Team Status: Inactive Member Role/Relationship Status Dates Dr. Arnold Cleveland DO Primary care physician Active Start: July 10, 2025 End: July 10, 2025 KATE EL Attending physician Active Start: July 10, 2025 End: July 10, 2025 KATE EL Referring Provider Active Start: July 10, 2025 End: July 10, 2025 INFORMATION SOURCE (unrecogn ized section and content) DATE CREATED AUTHOR 12/26/2023 [facility] ([place]) DATE CREATED AUTHOR AUTHOR'S ORGANIZ ATION 06/18/2024 [facility] DATE CREATED AUTHOR AUTHOR'S ORGANIZ ATION 12/05/2024 [facility] DATE CREATED AUTHOR AUTHOR'S ORGANMUMTAZ ATION 07/28/2025 [facility] Source Comments (unrecognize d section and content) In the event this informatio n is protected by the Federal Confidentiality of Alcohol and Drug Abuse Patient Records regulations: The Federal rules restrict any use of the information to criminally investigate or prosecute any alcohol or drug abuse patient.[facility] [facility] Reason for Visit (unrecogniz ed section and [...] BE BASED ON THE PRIMARY CLINICAL RECORDS. [employer] provides no warranty or guarantee of the accuracy or completeness of information in this document.
== END | disposition home or self-care (01) ==
PROVIDERS: PCP Family Medicine
DX: N39.0 Urinary tract infection, site not specified (principal)
CPT/HCPCS: 87086; 87088